=== PATIENT | male | born 1940 | race Caucasian/White ===

== ENCOUNTER → 2017-12-24 07:52 | Outpatient (CLI) | payer MEDICARE, SELFPAY ==
--- NOTE | 2017-12-24 | DI.US.S_ITS ---
PROCEDURE: US ABD AORTA ANEURYSM SCREEN INDICATIONS: SCREENING TECHNIQUE: Real time scanning was performed of the aorta and iliac arteries, with image documentation. COMPARISON: None. FINDINGS: Aorta: Proximal aortic diameter measures 1.9 cm. Mid-aorta measures 1.4 cm. Distal aortic diameter is 1.4 cm. Iliac arteries: Right common iliac artery measures 0.8 cm. Left common iliac artery measures 0.8 cm. IMPRESSION: Negative examination. No evidence of aneurysm identified. Dictated by: Pako Elizabeth M.D. on 12/24/2017 at 9:29 Approved by: Pako Elizabeth M.D. on 12/24/2017 at 9:30
== END ==
PROVIDERS: PCP Internal Medicine; Visit Provider Internal Medicine
DX: Z13.6 Encounter for screening for cardiovascular disorders (principal)
CPT/HCPCS: 76706

== ENCOUNTER → 2018-01-05 08:10 | Outpatient (CLI) | payer MEDICARE, SELFPAY ==
--- NOTE | 2018-01-05 | DI.NM.S_ITS ---
PROCEDURE: NM ROVERTO PERF SPECT R&S PHARM Rest and pharmacological stress myocardial perfusion SPECT with gated imaging and ejection fraction RADIOPHARMACEUTICAL: 14.7 mCi Tc-99m tetrafosmin IV at rest and 16.9 mCi Tc-99m tetrafosmin IV at peak effect of pharmacological stress. Vay-[id number]-[id number] was performed. INDICATIONS: CHEST PAIN TECHNIQUE: Radiopharmaceutical was injected at peak stress test, and also at rest. SPECT images were obtained. SPECT myocardial perfusion images were displayed in short axis, horizontal long axis, and vertical long axis views. Gated images were reviewed using [employer] software. COMPARISON: None. CARDIAC STRESS: A pharmacologic stress test was performed under the supervision of an attending staff, using an infusion of lexiscan 0.4mg IV X1. Hemodynamic data: There is normal blood pressure and heart rate response to pharmacologic stress. Symptoms: The patient denied anginal chest pain. Aminophylline: none EKG: Resting ECG shows sinus rhythm with LBBB. No diagnostic changes of ischemia; occasional PVCs present. FINDINGS: Raw data: There is good myocardial uptake of radiotracer. No significant motion artifacts. Mdpg-yb-rdhbz ratio is 0.35 (normal is less than 0.38 for tetrafosmin tracer). Left ventricle function: Gated images demonstrate hypokinesis of the apical septum and apical inferior wall. No transient ischemic dilation; TID is 0.92 (normal less than 1.3). Left ventricle resting end diastolic volume is 155 mL. Left ventricle stress ejection fraction is 62%; normal range is above 45%. Myocardial perfusion: There is a fixed apical inferior and apical septal defect that improves significantly with prone imaging, suggesting prior small infarct with no significant ischemia. The fixed basal to mid inferior wall and basal to mid septal defect resolves with prone imaging, suggesting artifact than true ischemia or infarction. 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 No significant ischemia. 1) Abnormal nuclear perfusion images. There is a prior small infarction in the apical inferior wall and apical septum. Alternatively, this perfusion defect can also be from LBBB. 2) Mildly enlarged left ventricle (resting EDV 155cc) with normal systolic function (post stress EF 62%). There is hypokinesis of the apical septum and apical inferior wall. 3) ECG non-diagnostic due to baseline LBBB. 4) No angina during the study. 5) No prior nuclear stress test available for comparison. Dictated by: Camelia Saravia MD on 01/06/2018 at 12:49 Approved by: Camelia Saravia MD on 01/06/2018 at 12:55
--- NOTE | 2018-01-05 09:29 | PM.TREADMILL ---
Cardiac Stress Test Report Referral & Results Date Patient Seen: 01/05/18 Requesting provider: iJ Sauer Indication: Chest pain Rest ECG: Left bundle branch block, presume old Procedure Note: After both written and verbal informed consent the patient had an IV started by the diagnostic imaging RN and then was hooked up to the treadmill monitoring system. The patient was then injected with the Renuka scan material. The Cardiolite was then immediately administered. The patient had a normal response to all infused materials. No adverse reactions were identified Impression: Normal response to materials as above Perfusion imaging will be reported separately, and possible ischemia will be evident on that study. Please note: Actual ECG tracings can be found in the PACS system.
== END ==
PROVIDERS: PCP Internal Medicine; Visit Provider Internal Medicine
DX: R07.9 Chest pain, unspecified (principal); I44.7 Left bundle-branch block, unspecified; I25.2 Old myocardial infarction; R94.39 Abnormal result of other cardiovascular function study
CPT/HCPCS: 78452; 93016; 93017; 93018; A9502; J2785

== ENCOUNTER → 2019-01-12 11:55 | Outpatient (CLI) | payer MEDICARE, SELFPAY ==
[2019-01-12 12:44] LABS: BUN Creatinine Ratio 18.6 (6-22); Blood Urea Nitrogen 26 mg/dL (9-20); Carbon Dioxide 27 mmol/L (22-32); Chloride 99 mmol/L (98-107); Estimated Glomerular Filt Rate 49.3 mL/min (>60); Glucose 121 mg/dL (80-110); HEMOLYSIS < 15 (0-50); Potassium 4.6 mmol/L (3.4-5.1); Sodium 138 mmol/L (137-145)
== END ==
PROVIDERS: PCP Internal Medicine; Visit Provider Internal Medicine
DX: I10 Essential (primary) hypertension (principal)
CPT/HCPCS: 36415; 80048

== ENCOUNTER 2019-04-14 13:00 | Day surgery (SDC) | payer MEDICARE, SELFPAY ==
[2019-04-14] MEDS: SODIUM CHLORIDE 0.9% 1,000 ML 200 ML IV (13:31)
[2019-04-14 13:48] VITALS: BMI 39.9
[2019-04-14 13:53] VITALS: BP 157/74; PULSE 64; RESP 12; TEMP 36.8; O2SAT 98
[2019-04-14] MEDS: MIDAZOLAM 5 MG/ML VIAL 1 MG IV (14:31)
[2019-04-14] MEDS: fentaNYL 250 MCG/5 ML INJ IV (14:31)
--- NOTE | 2019-04-14 14:34 | P.HP_ITS ---
History of Present Illness History of Present Illness Date Patient Seen: 04/14/19 Time Patient Seen: 14:34 Chief complaint: [id number] SCREENING COLONOSCOPY Narrative: Patient presents for colorectal screening. Last colonoscopy was 5 years ago in significant referred adenomatous polyp. No personal or family history of colon cancer. On further history denies any recent gastrointestinal symptoms. No nausea, vomiting, abdominal pain, loss of appetite, unexplained weight loss, change in bowel habits, diarrhea, constipation, melena, hematochezia, or bright red blood per rectum. Patient History Medical History Adenomatous polyp (Acute) Obesity (Acute) Family & Social History Social History: household members spouse Tobacco & Substance use: Smoking Status Never smoker alcohol intake frequency holiday/special occasion Substance Use Type does not use Meds Home Medications and Allergies Home Medications Medication Instructions Recorded Confirmed Type Aspirin Childrens 81 mg PO DAILY 04/14/19 04/14/19 History atenolol-chlorthalidone 75 mg PO 1-2XD 04/14/19 04/14/19 History losartan [Cozaar] 50 mg PO 1-2XD 04/14/19 04/14/19 History spironolactone [Aldactone] 25 mg PO DAILY 04/14/19 04/14/19 History Allergies Allergy/AdvReac Type Severity Reaction Status Date / Time atorvastatin [From Lipitor] AdvReac Mild Verified 04/14/19 13:35 Review of Systems Review of Systems Narrative: A 10 point review of systems is negative except as noted in the HPI Exam Vital Signs (past 8 hours): - 04/14/19 13:53 Temperature 98.3 F Pulse Rate 64 Respiratory Rate 12 Blood Pressure 157/74 H Pulse Oximetry 98 Oxygen Delivery Method Room Air Narrative Exam Narrative: General-no acute distress, well nourished HEENT-moist mucous membranes, no scleral icterus Neck-supple, no lymphadenopathy Chest- non labored respirations, clear to auscultation bilaterally Cardiac-regular rate no peripheral edema Abdomen-soft, nontender, non distended Extremities-warm, well perfused Neurological-alert and oriented, no focal deficits Assessment & Plan Assessment and plan (1) Screening for colon cancer: Current visit: Yes Status: Acute Assessment & Plan narrative: The patient requires colorectal screening and colonoscopy is recommended. Technical details were discussed. Risks, benefits, alternatives explained. Risks including but not limited to myocardial i nfarction, aspiration, bleeding, pain, missed lesion, incomplete examination, need for further radiographic studies, colonic perforation, and need for major abdominal surgery were discussed. All questions were answered to their satisfaction, and they are in agreement with this plan.
--- NOTE | 2019-04-14 14:57 | PM.OP.ENDO ---
Operative Date/Time/Diagnoses Date of procedure: 04/14/19 Time of procedure: 14:57 Pre-op diagnosis: Screening colonoscopy Post-op diagnosis: same Procedure & Clinicians Study performed: Colonoscopy Same procedure as scheduled: Yes Indications: 79-year-old male last colonoscopy 5 years ago demonstrated adenomas polyp which was resected presents for routine screening. Surgeon: Nura Farr Procedure Notes SCOAP/Timeout: Performed Procedure in detail: Patient placed in left lateral decubitus position. Time out was performed. Procedural sedation was administered with Versed and Fentanyl. A rectal exam demonstrated external hemorrhoids no internal masses. Colonoscopy scope was placed into the rectum and advanced through the colon to the cecum. The ileocecal valve was identified. The scope was then slowly withdrawn examining colon thoroughly in all directions. The colonoscopy was notable for the following 1. Sigmoid diverticulosis 2. No masses or polyps 3. Quality of prep fair Scope withdrawal time: 9 Sedation minutes: 21 Findings: diverticulosis Specimen(s): none sent Complications: none Impression: Diverticulosis Post-procedure Recommendations: Colonscopy in 10 years Disposition: same day surgery
[2019-04-14 15:00] VITALS: BP 108/50; PULSE 50; RESP 16; O2SAT 95
[2019-04-14 15:05] VITALS: BP 123/59; PULSE 45; RESP 13; O2SAT 93
[2019-04-14 15:25] VITALS: BP 126/59; PULSE 45; RESP 17; O2SAT 96
[2019-04-14 15:30] VITALS: TEMP 36
--- NOTE | 2019-04-14 16:16 | SUR.PHASEII ---
1540 Dr. Farr notified patient's HR 45 with BBB. Patient denied chest pain. No new orders.
== END 2019-04-14 15:45 | disposition home or self-care (01) ==
PROVIDERS: PCP Internal Medicine; Referring Provider Surgery; Visit Provider Surgery
PROC: 0DJD8ZZ Inspection of Lower Intestinal Tract, Via Natural or Artificial Opening Endoscopic (ICD-10-PCS; CPT 45378; principal; 2019-04-14 14:30)
DX: Z12.11 Encounter for screening for malignant neoplasm of colon (principal); Z86.010 Personal history of colon polyps; K57.30 Diverticulosis of large intestine without perforation or abscess without bleeding
CPT/HCPCS: G0105; 99152; J2250; J3010

== ENCOUNTER → 2019-07-14 09:29 | Outpatient (CLI) | payer MEDICARE, SELFPAY ==
[2019-07-14 10:02] LABS: Add Manual Diff / Slide Review NO; Basophils Absolute Auto 100 /uL (0-100); Basophils Percent Auto 1.2 % (0-2); Eosinophils Absolute Auto 600 /uL (0-450); Hematocrit 34.8 % (41-53); Hemoglobin 11.8 g/dL (13.5-17.5); Lymphocytes Absolute Auto 3100 /uL (1100-4500); Lymphocytes Percent Auto 25.3 % (25-40); Mean Corpuscular Hemoglobin 29.1 PG (26-34); Mean Corpuscular Volume 85.7 fL (80-100); Monocytes Absolute Auto 1400 /uL (0-900); Monocytes Percent Auto 11.1 % (3-14); Neutrophils Absolute Auto 7000 /uL (1500-7000); Neutrophils Percent Auto 57.4 % (50-75); Platelet Count 336 X10^3/uL (150-400); Red Blood Cell Count 4.07 X10^6/uL (4.5-5.9); Red Cell Distribution Width 13.9 % (11.6-14.8); White Blood Cell Count 12.2 X10^3/uL (4.5-11.0)
[2019-07-14 10:39] LABS: Alanine Aminotransferase 26 IU/L (<50); Albumin 4.5 g/dL (3.5-5.0); Albumin Globulin Ratio 1.3 (1.0-2.8); Alkaline Phosphatase 81 U/L (38-126); Aspartate Aminotransferase 34 IU/L (17-59); BUN Creatinine Ratio 17.7 (6-22); Bilirubin Total 0.6 mg/dL (0.2-1.3); Blood Urea Nitrogen 22 mg/dL (9-20); Calcium 9.9 mg/dL (8.4-10.2); Carbon Dioxide 27 mmol/L (22-32); Chloride 102 mmol/L (98-107); Estimated Glomerular Filt Rate 56.5 mL/min (>60); Globulin 3.4 g/dL (1.7-4.1); Glucose 127 mg/dL (80-110); HEMOLYSIS < 15 (0-50); Potassium 4.3 mmol/L (3.4-5.1); Sodium 139 mmol/L (137-145); Total Protein 7.9 g/dL (6.3-8.2)
[2019-07-14 10:50] LABS: HCG Quantitative /Beta subunit < 2.4 mIU/mL (-2.40)
[2019-07-14 10:51] LABS: Follicle Stimulating Hormone 6.65 mIU/mL; Luteinizing Hormone 4.22 mIU/mL
[2019-07-14 11:06] LABS: Estradiol, Total 35.7 pg/mL; Testosterone 279 ng/dL (71.8-623)
== END ==
PROVIDERS: PCP Internal Medicine; Referring Provider Internal Medicine; Visit Provider Internal Medicine
DX: I10 Essential (primary) hypertension (principal)
CPT/HCPCS: 36415; 80053; 82670; 83001; 83002; 84403; 84443; 84702; 85025

== ENCOUNTER 2020-03-02 10:00 | Inpatient (IN) | payer MEDICARE, SELFPAY ==
[2020-03-02] VITALS (21 sets, daily range): BP systolic 109–152; BP diastolic 60–80; PULSE 107–127; RESP 12–32; TEMP 36.4–37.2; O2SAT 86–95; BMI 41.5; BMI 42.1
--- NOTE | 2020-03-02 10:21 | DI.RAD.S_ITS ---
PROCEDURE: XR CHEST 1V INDICATIONS: chest pain TECHNIQUE: One view of the chest was acquired. COMPARISON: None. FINDINGS: Surgical changes and devices: None. Lungs and pleura: Mild generalized interstitial type infiltrates can be seen involving both lungs, right worse than left. No pleural effusions or pneumothorax. Mediastinum: Mediastinal contours appear normal. Heart size is normal. Bones and chest wall: No suspicious bony lesions. Age-appropriate bony degenerative changes are seen. Overlying soft tissues appear unremarkable. IMPRESSION: Mild generalized interstitial type infiltrates are seen. Please consider COVID pneumonia versus pulmonary edema. Dictated by: Marcio Sewell M.D. on 03/02/2020 at 9:38 Approved by: Marcio Sewell M.D. on 03/02/2020 at 9:42
--- NOTE | 2020-03-02 10:33 | ED_ITS ---
HPI - Chest Pain <KATIANA Bates - Last Filed: 03/02/20 13:30> General Chief Complaint: Chest Pain Stated Complaint: congestion,cough,shortness of breath,heart rate up Time Seen by Provider: 03/02/20 10:06 Source: patient Mode of arrival: Ambulatory Limitations: no limitations History of Present Illness HPI narrative: This is a high functioning 80-year-old gentleman, formal smoker, who has past medical history significant for hypertension, JOHN, melanoma, presents to ED with exertional short of breath, nonproductive dry cough, orthopnea, chest pressure. Patient's initial symptoms started on February 15 when he was riding a bicycle in [place] and short of breath worsened with dry cough on 26 of February during bike ride. Patient contributed his symptoms to chest congestion and cold. Patient developed fever this morning up to [address] Sauer recommended patient to come into ED for an evaluation. Patient denies known exposure to Covid or recent travel. Patient denies history of atrial fibrillation, TX. patient denies chills, nausea, vomiting but intermitt ent left upper quadrant discomfort. Patient denies urinary symptoms. Patient noticed his blood pressure has been slightly decreasing from his baseline to 118/60-40 at rest. He has been monitoring his heart rate with portable pulse ox at home and noticed heart rate up to 120s to 60s. Pharmacological stress myocardial perfusion on 01/05/2018. There is a small infarction in this apical inferior wall and apical septum. There is mild enlarged left ventricle with ejection fraction of 62%. ECG has baseline left bundle branch block. Related Data Home Medications Medication Instructions Recorded Confirmed losartan [Cozaar] 50 mg PO BID 04/14/19 03/02/20 spironolactone [Aldactone] 25 mg PO DAILY 04/14/19 03/02/20 amlodipine 10 mg PO BEDTIME 03/02/20 03/02/20 aspirin 81 mg PO BEDTIME 03/02/20 03/02/20 atenolol-chlorthalidone 1 tab PO DAILY 03/02/20 03/02/20 cholecalciferol (vitamin D3) 50 mcg PO DAILY 03/02/20 03/02/20 [Vitamin D3] metronidazole 1 applic TOPICAL DAILY PRN 03/02/20 03/02/20 spikyphwscwe-tauyxzpx-[id number] 2 tab PO DAILY 03/02/20 03/02/20 [Mature Adult Century] Allergies Allergy/AdvReac Type Severity Reaction Status Date / Time atorvastatin [From Lipitor] AdvReac Mild Verified 03/02/20 10:24 amitriptyline AdvReac Verified 03/02/20 14:20 Review of Systems <MARIBELL BatesP - Last Filed: 03/02/20 13:30> Review of Systems Narrative: General: See HPI. HEENT: Denies sinus pain, ear pain, sore throat, difficulty swallowing, dizziness. Respiratory: See HPI. Cardiovascular: See HPI. Gastrointestinal: Denies nausea, vomiting, (+) intermittent left upper quadrant discomfort, diarrhea, constipation, melena. : Denies dysuria, frequency, incontinence, hematuria, urinary retention. Musculoskeletal: Denies weakness, joint pain or bony pain. Skin: Denies rash, skin lesions, or other. Neurologic: Denies weakness, headache, numbness, change in speech, confusion, seizures, incoordination. Psychiatric: No concerning psychosocial issues. 12-point review of systems is negative except for those stated above. Patient History <Kirby Tomas [facility] - Last Filed: 03/02/20 13:30> Medical History Adenomatous polyp Hypertension Melanoma Obesity JOHN (obstructive sleep apnea) Surgical History History of cataract surgery Family History (Updated 03/02/20 @ 15:58 by Jessa Frausto MD) Mother Congestive heart failure Social History household members: spouse Smoking Status: Former smoker Smoking Status: Never smoker alcohol intake frequency: holidays/special occasions only Substance Use Type: does not use Exam <Kirby Genoveva [facility] - Last Filed: 03/02/20 13:30> Narrative Exam Narrative: GEN: Alert, oriented x 3, well appearing and nourished, and in moderate respiratory distress with tachypnea with short distance of ambulation to room and tachycardia. Head: Normal cephalic, atraumatic. No scalp or temporal tenderness, palpable mass or rash. EYES: Pupils are equal, round, and reactive to light and accommodation. Extraocular muscles are intact bilaterally. There is no subconjunctival hemorrhage, exudate and sclera non-icteric. ENT: Hearing grossly intact. Nose without bleeding, purulent discharge or deviation. Facial sinuses nontender to palpate. Mucous membrane moist, no mucosal lesion. Throat without erythema, tonsillar hypertrophy or exudate. Uvula in midline, airway patent. Neck: Trachea in midline. No JVD, non-tender without lymphadenopathy. No masses or thyroid megaly. Supple, non-tender and no meningeal signs. CARDIAC: Normal irregular and rhythm without murmurs, gallops, or rubs. No chest wall tenderness. No significant peripheral edema, cyanosis or pallor. Capillary refill is less than 2 seconds. RESPIRATORY: Lungs are decreased to auscultate bilaterally. No cough, wheezes, rales, or rhonchi. No stridor. Tachypnea with mild exertion. ABD: Abdomen soft, nontender. No guarding or rebound tenderness to palpate. Bowel sounds are normal in all 4 quadrants. There is no palpable masses or organomegaly. EXT: Full painless ROM of all extremities with no loss of sensation, strength, effusion or edema. SKIN: Warm, dry, normal color for patient. No erythema, lesions or rash over visible areas. BACK: Nontender without deformity or crepitance. No flank tenderness. NEUROLOGICAL: Alert and oriented to place, time and person. Sensation and motor function intact bilaterally. No facial droops, dysphasia. PSYCHIATRIC: Good judgement and reason, without hallucinations, abnormal affect or abnormal behaviors during the examination. Patient is not suicidal. Initial Vital Signs Initial Vital Signs: Vital Signs Temperature 98.9 F 03/02/20 10:00 Pulse Rate 124 H 03/02/20 10:00 Respiratory Rate 32 H 03/02/20 10:00 Blood Pressure 118/79 03/02/20 10:00 Pulse Oximetry 93 03/02/20 10:00 <Feliciano Ware DO - Last Filed: 03/03/20 06:47> Initial Vital Signs Initial Vital Signs: Vital Signs Temperature 98.9 F 03/02/20 10:00 Pulse Rate 124 H 03/02/20 10:00 Respiratory Rate 32 H 03/02/20 10:00 Blood Pressure 118/79 03/02/20 10:00 Pulse Oximetry 93 03/02/20 10:00 Scores <KATIANA Bates - Last Filed: 03/02/20 13:30> RAJINDER-Denisse Confusion: No BUN >19mg/dL (>7mmol/L): Yes Respiratory rate greater or equal to 30: No SBP <90mmHg or DBP less or equal to 60mmHg: No Age 65 or Older: Yes CURB-65 Total: 2 Score 0-1 Outpatient care, Score 2 Inpt vs. Obs, Score 3 or over Inpt admit with ICU for score of 4-5 GCS [place] coma scale eye opening: Spontaneous Oskar coma scale verbal response: Orientated [place] coma scale motor response: Obey commands [place] coma scale total score: 15 HEART Score Heart Score history: Highly Suspicious Heart Score EKG: Non-Specific repolarization disturbance Heart Score Age: > or = 65 years old Heart Score risk factors: 1-2 risk factors Heart Score troponin: < or = to normal limit Heart Score Total: 6 qSOFA Altered Mental Status (GCS <15): No Respiratory rate greater than/equal to 22: Yes Systolic blood pressure less than or equal to 100: No qSOFA Total: 1 0-1 Not High Risk 1-3 High risk Citation:: [id number] score for afib/stroke risk 5 for age, sex, CHF, HTN, prior TX. Course <Kirby Hull-VikramKATIANA reddy - Last Filed: 03/02/20 13:30> Orders Ordered: Acetaminophen (Acetaminophen 325 Mg Tablet) 650 mg PO Q6HR PRN PRN Reason: Fever/Mild Pain (1-3) Al Hydrox/Mg Hydrox/Simethicone (Mag Hydrox/Alum/Simeth 30 Ml Udc) 30 ml PO Q6HR PRN PRN Reason: Dyspepsia Aspirin (Aspirin Ec 81 Mg Tablet) 81 mg PO DAILY [facility] Bisacodyl (Bisacodyl 10 Mg Supp) 10 mg IA DAILY PRN PRN Reason: Constipation Calcium Carbonate (Calcium Carbonate 500 Mg Tab) 1,000 mg PO Q4HR PRN PRN Reason: Dyspepsia Docusate Sodium (Docusate 100 Mg Capsule) 100 mg PO BID [facility] [place] Last Admin: 03/02/20 20:33 Dose: 100 mg Documented by: Enoxaparin Sodium (Enoxaparin 40 Mg/0.4 Ml Syringe) 40 mg SUBCUT DAILY [facility] [place] Sodium Chloride (Normal Saline 0.9%) 1,000 mls @ 125 mls/hr IV CONT [facility] Last Infusion: 03/02/20 12:37 Dose: 0 mls/hr Documented by: Admin: 03/02/20 11:09 Dose: 125 mls/hr Documented by: ALEX Ceftriaxone Sodium/Dextrose (Rocephin) 2 gm in 50 mls @ 100 mls/hr IV Q24H [facility] Azithromycin 500 mg/ Dextrose 250 mls @ 250 mls/hr IV Q24H [facility] [place] Stop: 03/06/20 12:59 Losartan Potassium (Losartan 50 Mg Tablet) 50 mg PO BID [facility] [place] Last Admin: 03/02/20 20:33 Dose: 50 mg Documented by: Magnesium Hydroxide (Magnesium Hydroxide 30 Ml Udc) 30 ml PO DAILY PRN PRN Reason: Constipation Metoprolol Tartrate (Metoprolol Ir 50 Mg Tablet) 50 mg PO Q6HR [facility] [place] Last Admin: 03/02/20 17:09 Dose: 50 mg Documented by: NAZANIN Multivitamins (Multivitamin 1 Tablet) 1 tab PO DAILY [facility] [place] Naloxone HCl (Naloxone 0.4 Mg/Ml Vial) 0.2 mg IV Q2MIN PRN PRN Reason: Opiate Reversal Ondansetron HCl (Ondansetron 4 Mg/2 Ml Inj) 4 mg IV Q8HR PRN PRN Reason: Nausea And Vomiting Oxycodone HCl (Oxycodone Ir 5 Mg Tablet) 5 mg PO Q6HR PRN PRN Reason: Pain, Moderate (4-6) Sennosides (Sennosides 8.6 Mg Tablet) 17.2 mg PO BEDTIME [facility] [place] Last Admin: 03/02/20 20:33 Dose: 17.2 mg Documented by: Spironolactone (Spironolactone 25 Mg Tablet) 25 mg PO DAILY [facility] [place] Discontinued Medications Amlodipine Besylate (Amlodipine 5 Mg Tablet) 10 mg PO DAILY [facility] [place] Ceftriaxone Sodium/Dextrose (Rocephin) 2 gm in 50 mls @ 100 mls/hr IV NOW ONE Stop: 03/02/20 12:17 Last Infusion: 03/02/20 12:37 Dose: 0 mls/hr Documented by: Admin: 03/02/20 12:04 Dose: 100 mls/hr Documented by: ALEX Azithromycin 500 mg/ Dextrose 250 mls @ 250 mls/hr IV NOW ONE Stop: 03/02/20 11:49 Last Infusion: 03/02/20 14:26 Dose: 0 mls/hr Documented by: Infusion: 03/02/20 13:40 Dose: 250 mls/hr Documented by: Infusion: 03/02/20 13:16 Dose: 0 mls/hr Documented by: Admin: 03/02/20 12:37 Dose: 250 mls/hr Documented by: ALEX Metoprolol Succinate (Metoprolol Er 25 Mg Tablet) 25 mg PO NOW ONE Stop: 03/02/20 12:16 Last Admin: 03/02/20 12:34 Dose: 25 mg Documented by: ALEX Reevaluation(s) Reevaluation #1: started on gentle IV hydration for concerns for sepsis and afib/tachycardia due to concerns for tachycardia from heart failure etiology. no crackles with marginal o2 sat at 93% in RA, no pitting edema but appreciated mild swelling around the ankle around the socks Time: 10:39 Reevaluation #2: Oxygen by nasal cannula 2 L provided to keep O2 said greater than 93%. At rest noted O2 said in 91% in bed. Patient reports short of breath not to bad at rest. Time: 11:10 Reevaluation #3: Oxygenation on 2 L nasal cannula increased to 95% and reports short of breath much improved. Time: 11:45 Consultations Consultation #1: Dr. Frausto consulted for admission for pneumonia, new onset of AFib, and elevated proBNP. She kindly accepted patient's care for IV antibiotic medication therapy and further cardiac workup. She recommended no IV fluid infusion at this time and recommended p.o. metoprolol 25 mg for afib with rate in 110's. Time: 12:19 Vital Signs Vital signs: Vital Signs - 8 hr 03/02/20 12:00 03/02/20 12:15 Pulse Rate 115 H 117 H Respiratory Rate 15 Blood Pressure 122/68 117/63 Pulse Oximetry 95 95 <Feliciano Ware DO - Last Filed: 03/03/20 06:47> Orders Ordered: Acetaminophen (Acetaminophen 325 Mg Tablet) 650 mg PO Q6HR PRN PRN Reason: Fever/Mild Pain (1-3) Al Hydrox/Mg Hydrox/Simethicone (Mag Hydrox/Alum/Simeth 30 Ml Udc) 30 ml PO Q6HR PRN PRN Reason: Dyspepsia Aspirin (Aspirin Ec 81 Mg Tablet) 81 mg PO DAILY [facility] Bisacodyl (Bisacodyl 10 Mg Supp) 10 mg IA DAILY PRN PRN Reason: Constipation Calcium Carbonate (Calcium Carbonate 500 Mg Tab) 1,000 mg PO Q4HR PRN PRN Reason: Dyspepsia Docusate Sodium (Docusate 100 Mg Capsule) 100 mg PO BID [facility] [place] Last Admin: 03/02/20 20:33 Dose: 100 mg Documented by: Enoxaparin Sodium (Enoxaparin 40 Mg/0.4 Ml Syringe) 40 mg SUBCUT DAILY [facility] [place] Sodium Chloride (Normal Saline 0.9%) 1,000 mls @ 125 mls/hr IV CONT [facility] Last Infusion: 03/02/20 12:37 Dose: 0 mls/hr Documented by: Admin: 03/02/20 11:09 Dose: 125 mls/hr Documented by: ALEX Ceftriaxone Sodium/Dextrose (Rocephin) 2 gm in 50 mls @ 100 mls/hr IV Q24H [facility] Azithromycin 500 mg/ Dextrose 250 mls @ 250 mls/hr IV Q24H [facility] Stop: 03/06/20 12:59 Losartan Potassium (Losartan 50 Mg Tablet) 50 mg PO BID [facility] [place] Last Admin: 03/02/20 20:33 Dose: 50 mg Documented by: Magnesium Hydroxide (Magnesium Hydroxide 30 Ml Udc) 30 ml PO DAILY PRN PRN Reason: Constipation Metoprolol Tartrate (Metoprolol Ir 50 Mg Tablet) 50 mg PO Q6HR [facility] [place] Last Admin: 03/02/20 17:09 Dose: 50 mg Documented by: NAZANIN Multivitamins (Multivitamin 1 Tablet) 1 tab PO DAILY [facility] [place] Naloxone HCl (Naloxone 0.4 Mg/Ml Vial) 0.2 mg IV Q2MIN PRN PRN Reason: Opiate Reversal Ondansetron HCl (Ondansetron 4 Mg/2 Ml Inj) 4 mg IV Q8HR PRN PRN Reason: Nausea And Vomiting Oxycodone HCl (Oxycodone Ir 5 Mg Tablet) 5 mg PO Q6HR PRN PRN Reason: Pain, Moderate (4-6) Sennosides (Sennosides 8.6 Mg Tablet) 17.2 mg PO BEDTIME [facility] [place] Last Admin: 03/02/20 20:33 Dose: 17.2 mg Documented by: Spironolactone (Spironolactone 25 Mg Tablet) 25 mg PO DAILY [facility] Discontinued Medications Amlodipine Besylate (Amlodipine 5 Mg Tablet) 10 mg PO DAILY [facility] Ceftriaxone Sodium/Dextrose (Rocephin) 2 gm in 50 mls @ 100 mls/hr IV NOW ONE Stop: 03/02/20 12:17 Last Infusion: 03/02/20 12:37 Dose: 0 mls/hr Documented by: Admin: 03/02/20 12:04 Dose: 100 mls/hr Documented by: ALEX Azithromycin 500 mg/ Dextrose 250 mls @ 250 mls/hr IV NOW ONE Stop: 03/02/20 11:49 Last Infusion: 03/02/20 14:26 Dose: 0 mls/hr Documented by: Infusion: 03/02/20 13:40 Dose: 250 mls/hr Documented by: Infusion: 03/02/20 13:16 Dose: 0 mls/hr Documented by: Admin: 03/02/20 12:37 Dose: 250 mls/hr Documented by: ALEX Metoprolol Succinate (Metoprolol Er 25 Mg Tablet) 25 mg PO NOW ONE Stop: 03/02/20 12:16 Last Admin: 03/02/20 12:34 Dose: 25 mg Documented by: ALEX Vital Signs Vital signs: Vital Signs - 8 hr 03/02/20 12:00 03/02/20 12:15 Pulse Rate 115 H 117 H Respiratory Rate 15 Blood Pressure 122/68 117/63 Pulse Oximetry 95 95 MDM - Chest Pain <KATIANA Bates - Last Filed: 03/02/20 13:30> Differential Diagnosis Differential diagnosis: Likely stable angina, unstable angina pectoris and other (ACS, TX, pneumonia, COVID-19, new onset of AFib, heart failure) Medical Records Data Attestation: I reviewed the patient's medical records. Lab Data Attestation: I reviewed the patient's lab results. Result diagrams: 03/03/20 05:00 03/03/20 05:00 Labs: Lab Results 03/02/20 03/02/20 03/02/20 Range/Units 10:20 10:20 10:20 WBC 18.9 H (4.5-11.0) X10^3/uL RBC 4.02 L (4.5-5.9) X10^6/uL Hgb 11.2 L (13.5-17.5) g/dL Hct 34.4 L (41-53) % MCV 85.6 (80-100) fL MCH 27.7 (26-34) PG MCHC 32.4 (30-36) % RDW 14.2 (11.6-14.8) % Plt Count 312 (150-400) X10^3/uL Neut % (Auto) 78.5 H (50-75) % Lymph % (Auto) 9.4 L (25-40) % [place] % (Auto) 10.0 (3-14) % Eos % (Auto) 1.4 L (2-4) % Baso % (Auto) 0.7 (0-2) % Neut # (Auto) 76905 H (9860-2472) /uL Lymph # (Auto) 1800 (9988-9871) /uL [place] # (Auto) 1900 H (0-900) /uL Eos # (Auto) 300 (0-450) /uL Baso # (Auto) 100 (0-100) /uL PT 13.4 H (10.1-12.7) SECONDS INR 1.2 (0.9-1.3) APTT 31 (26.4-36.2) SECONDS D-Dimer (<230) ng/mL Sodium 134 L (137-145) mmol/L Potassium 4.6 (3.4-5.1) mmol/L Chloride 103 (98-107) mmol/L Carbon Dioxide 23 (22-32) mmol/L BUN 29 H (9-20) mg/dL Creatinine 1.48 H (0.66-1.25) mg/dL Estimated GFR 46.0 L (>60) mL/min BUN/Creatinine Ratio 19.6 (6-22) Glucose 166 H (80-110) mg/dL Lactate (0.7-2.1) mmol/L Calcium 9.0 (8.4-10.2) mg/dL Ferritin (18-464) ng/mL Total Bilirubin 0.8 (0.2-1.3) mg/dL AST 29 (17-59) IU/L ALT 32 (<50) IU/L Alkaline Phosphatase 83 (38-126) U/L Lactate Dehydrogenase (313-618) U/L Total Creatine Kinase 63 (55-170) U/L CK-MB (CK-2) TNP CK-MB (CK-2) Rel Index TNP Troponin I < 0.012 (0.01-0.034) ng/mL C-Reactive Protein (<1.0) mg/dL NT-Pro-B Natriuret Pep 2290 H (<450) pg/mL Total Protein 7.8 (6.3-8.2) g/dL Albumin 4.2 (3.5-5.0) g/dL Globulin 3.6 (1.7-4.1) g/dL Albumin/Globulin Ratio 1.2 (1.0-2.8) Lipase 78 (23-300) U/L Procalcitonin (<0.5) ng/mL SARS-CoV-2 (PCR) (Negative) 03/02/20 03/02/20 03/02/20 Range/Units 10:21 10:21 10:28 WBC (4.5-11.0) X10^3/uL RBC (4.5-5.9) X10^6/uL Hgb (13.5-17.5) g/dL Hct (41-53) % MCV (80-100) fL MCH (26-34) PG MCHC (30-36) % RDW (11.6-14.8) % Plt Count (150-400) X10^3/uL Neut % (Auto) (50-75) % Lymph % (Auto) (25-40) % [place] % (Auto) (3-14) % Eos % (Auto) (2-4) % Baso % (Auto) (0-2) % Neut # (Auto) (4796-1073) /uL Lymph # (Auto) (4519-2609) /uL [place] # (Auto) (0-900) /uL Eos # (Auto) (0-450) /uL Baso # (Auto) (0-100) /uL PT (10.1-12.7) SECONDS INR (0.9-1.3) APTT (26.4-36.2) SECONDS D-Dimer (<230) ng/mL Sodium (137-145) mmol/L Potassium (3.4-5.1) mmol/L Chloride (98-107) mmol/L Carbon Dioxide (22-32) mmol/L BUN (9-20) mg/dL Creatinine (0.66-1.25) mg/dL Estimated GFR (>60) mL/min BUN/Creatinine Ratio (6-22) Glucose (80-110) mg/dL Lactate 1.8 (0.7-2.1) mmol/L Calcium (8.4-10.2) mg/dL Ferritin (18-464) ng/mL Total Bilirubin (0.2-1.3) mg/dL AST (17-59) IU/L ALT (<50) IU/L Alkaline Phosphatase (38-126) U/L Lactate Dehydrogenase (313-618) U/L Total Creatine Kinase (55-170) U/L CK-MB (CK-2) CK-MB (CK-2) Rel Index Troponin I (0.01-0.034) ng/mL C-Reactive Protein (<1.0) mg/dL NT-Pro-B Natriuret Pep (<450) pg/mL Total Protein (6.3-8.2) g/dL Albumin (3.5-5.0) g/dL Globulin (1.7-4.1) g/dL Albumin/Globulin Ratio (1.0-2.8) Lipase (23-300) U/L Procalcitonin < 0.05 (<0.5) ng/mL SARS-CoV-2 (PCR) Negative (Negative) 03/02/20 03/02/20 03/02/20 Range/Units 10:41 10:41 10:41 WBC (4.5-11.0) X10^3/uL RBC (4.5-5.9) X10^6/uL Hgb (13.5-17.5) g/dL Hct (41-53) % MCV (80-100) fL MCH (26-34) PG MCHC (30-36) % RDW (11.6-14.8) % Plt Count (150-400) X10^3/uL Neut % (Auto) (50-75) % Lymph % (Auto) (25-40) % [place] % (Auto) (3-14) % Eos % (Auto) (2-4) % Baso % (Auto) (0-2) % Neut # (Auto) (0183-7352) /uL Lymph # (Auto) (9271-8548) /uL [place] # (Auto) (0-900) /uL Eos # (Auto) (0-450) /uL Baso # (Auto) (0-100) /uL PT (10.1-12.7) SECONDS INR (0.9-1.3) APTT (26.4-36.2) SECONDS D-Dimer 285 H (<230) ng/mL Sodium (137-145) mmol/L Potassium (3.4-5.1) mmol/L Chloride (98-107) mmol/L Carbon Dioxide (22-32) mmol/L BUN (9-20) mg/dL Creatinine (0.66-1.25) mg/dL Estimated GFR (>60) mL/min BUN/Creatinine Ratio (6-22) Glucose (80-110) mg/dL Lactate (0.7-2.1) mmol/L Calcium (8.4-10.2) mg/dL Ferritin 100 (18-464) ng/mL Total Bilirubin (0.2-1.3) mg/dL AST (17-59) IU/L ALT (<50) IU/L Alkaline Phosphatase (38-126) U/L Lactate Dehydrogenase 439 (313-618) U/L Total Creatine Kinase (55-170) U/L CK-MB (CK-2) CK-MB (CK-2) Rel Index Troponin I (0.01-0.034) ng/mL C-Reactive Protein 6.5 H (<1.0) mg/dL NT-Pro-B Natriuret Pep (<450) pg/mL Total Protein (6.3-8.2) g/dL Albumin (3.5-5.0) g/dL Globulin (1.7-4.1) g/dL Albumin/Globulin Ratio (1.0-2.8) Lipase (23-300) U/L Procalcitonin Cancelled (<0.5) ng/mL SARS-CoV-2 (PCR) (Negative) Imaging Data Chest x-ray: Radiologist's Impression: [address] [id number] ReportSigned Patient: Rui Fraire PMR#: [id number]: 2Acct:[id number]/Sex: 80 / MDate of Service: 03/02/20Loc: EDAccession Number: [id number] Procedure: XR chest 1V Ordering Provider: Kirby Tomas PROCEDURE: XR CHEST 1V INDICATIONS: chest pain TECHNIQUE: One view of the chest was acquired. COMPARISON: None. FINDINGS: Surgical changes and devices: None. Lungs and pleura: Mild generalized interstitial type infiltrates can be seen involving both lungs, right worse than left. No pleural effusions or pneumothorax. Mediastinum: Mediastinal contours appear normal. Heart size is normal. Bones and chest wall: No suspicious bony lesions. Age-appropriate bony degenerative changes are seen. Overlying soft tissues appear unremarkable. IMPRESSION: Mild generalized interstitial type infiltrates are seen. Please consider COVID pneumonia versus pulmonary edema. Dictated by: Marcio Sewell M.D. on 03/02/2020 at 9:38 Approved by: Marcio Sewell M.D. on 03/02/2020 at 9:42 ECG Data Attestation: I personally reviewed and interpreted this ECG as follows: Prior ECG tracings: not available for review Interpretation: Atrial fibrillation with RVR rate at 119. Left bundle branch block. IA interval *, QRS duration 164, QT/QTC 339/410. Tele strip 10 04/2019 during colonoscopy show similiar tracing in lead II but QRS in regular intervals. NO prevous 12 leads EKG available. MDM Narrative Medical decision making narrative: This is a 80-year-old male who presents to ED with chief complain of exertional short of breath with nonproductive cough, orthopnea, chest pressure and fever. Patient had ongoing symptoms for about 2 weeks and developed fever today. COVID test was negative. Physical exam appreciated tachypnea with marginal hypoxemia and new onset of AFib rate in 120s to 130s. EKG showed AFib rate in the 119 with left bundle-branch block. Ca rdiac enzymes were negative. Showed mild generalize interstitial type infiltrate in bilateral lobes worsen right-sided. Normal heart size. Concerned for pneumonia versus pulmonary edema. CBC shows leukocytosis of WBC 18.9 with mild anemia of H&H 11.2/34.4. Normal lactate of 1.8. Negative procalcitonin. Elevated CRP of 6.5. Mild hyponatremia and Slightly decreased Kidney function from his baseline. Elevated proBNP up to 2290 today without known history of heart failure. Which is patient's baseline 7 month ago. D-dimer was 285 negative for age-adjusted. HEART score is 6. [id number] score is 5, CURB-65 score is 2, qSOFA is 1. Respiratory panel is pending. Blood culture is pending. Patient received about 125 mL of normal saline infusion while in ED. patient received Rocephin 2 g and Zithromax 500 mg IV to treat pneumonia. Other COVID related labs are unremarkable. Dr. rFausto kindly accepted patient's care for inpatient for IV antibiotic medication treatment for pneumonia, hypoxia, new onset of AFib, and possible heart failure for further workup. Patient given 25 mg Toprol or XL for AFib rate in 110s. <Feliciano Ware DO - Last Filed: 03/03/20 06:47> Lab Data Labs: Lab Results 03/02/20 03/02/20 03/02/20 Range/Units 10:20 10:20 10:20 WBC 18.9 H (4.5-11.0) X10^3/uL RBC 4.02 L (4.5-5.9) X10^6/uL Hgb 11.2 L (13.5-17.5) g/dL Hct 34.4 L (41-53) % MCV 85.6 (80-100) fL MCH 27.7 (26-34) PG MCHC 32.4 (30-36) % RDW 14.2 (11.6-14.8) % Plt Count 312 (150-400) X10^3/uL Neut % (Auto) 78.5 H (50-75) % Lymph % (Auto) 9.4 L (25-40) % [place] % (Auto) 10.0 (3-14) % Eos % (Auto) 1.4 L (2-4) % Baso % (Auto) 0.7 (0-2) % Neut # (Auto) 70969 H (0114-8019) /uL Lymph # (Auto) 1800 (2694-4297) /uL [place] # (Auto) 1900 H (0-900) /uL Eos # (Auto) 300 (0-450) /uL Baso # (Auto) 100 (0-100) /uL PT 13.4 H (10.1-12.7) SECONDS INR 1.2 (0.9-1.3) APTT 31 (26.4-36.2) SECONDS D-Dimer (<230) ng/mL Sodium 134 L (137-145) mmol/L Potassium 4.6 (3.4-5.1) mmol/L Chloride 103 (98-107) mmol/L Carbon Dioxide 23 (22-32) mmol/L BUN 29 H (9-20) mg/dL Creatinine 1.48 H (0.66-1.25) mg/dL Estimated GFR 46.0 L (>60) mL/min BUN/Creatinine Ratio 19.6 (6-22) Glucose 166 H (80-110) mg/dL Lactate (0.7-2.1) mmol/L Calcium 9.0 (8.4-10.2) mg/dL Ferritin (18-464) ng/mL Total Bilirubin 0.8 (0.2-1.3) mg/dL AST 29 (17-59) IU/L ALT 32 (<50) IU/L Alkaline Phosphatase 83 (38-126) U/L Lactate Dehydrogenase (313-618) U/L Total Creatine Kinase 63 (55-170) U/L CK-MB (CK-2) TNP CK-MB (CK-2) Rel Index TNP Troponin I < 0.012 (0.01-0.034) ng/mL C-Reactive Protein (<1.0) mg/dL NT-Pro-B Natriuret Pep 2290 H (<450) pg/mL Total Protein 7.8 (6.3-8.2) g/dL Albumin 4.2 (3.5-5.0) g/dL Globulin 3.6 (1.7-4.1) g/dL Albumin/Globulin Ratio 1.2 (1.0-2.8) Lipase 78 (23-300) U/L Procalcitonin (<0.5) ng/mL SARS-CoV-2 (PCR) (Negative) 03/02/20 03/02/20 03/02/20 Range/Units 10:21 10:21 10:28 WBC (4.5-11.0) X10^3/uL RBC (4.5-5.9) X10^6/uL Hgb (13.5-17.5) g/dL Hct (41-53) % MCV (80-100) fL MCH (26-34) PG MCHC (30-36) % RDW (11.6-14.8) % Plt Count (150-400) X10^3/uL Neut % (Auto) (50-75) % Lymph % (Auto) (25-40) % [place] % (Auto) (3-14) % Eos % (Auto) (2-4) % Baso % (Auto) (0-2) % Neut # (Auto) (1039-9627) /uL Lymph # (Auto) (3085-8880) /uL [place] # (Auto) (0-900) /uL Eos # (Auto) (0-450) /uL Baso # (Auto) (0-100) /uL PT (10.1-12.7) SECONDS INR (0.9-1.3) APTT (26.4-36.2) SECONDS D-Dimer (<230) ng/mL Sodium (137-145) mmol/L Potassium (3.4-5.1) mmol/L Chloride (98-107) mmol/L Carbon Dioxide (22-32) mmol/L BUN (9-20) mg/dL Creatinine (0.66-1.25) mg/dL Estimated GFR (>60) mL/min BUN/Creatinine Ratio (6-22) Glucose (80-110) mg/dL Lactate 1.8 (0.7-2.1) mmol/L Calcium (8.4-10.2) mg/dL Ferritin (18-464) ng/mL Total Bilirubin (0.2-1.3) mg/dL AST (17-59) IU/L ALT (<50) IU/L Alkaline Phosphatase (38-126) U/L Lactate Dehydrogenase (313-618) U/L Total Creatine Kinase (55-170) U/L CK-MB (CK-2) CK-MB (CK-2) Rel Index Troponin I (0.01-0.034) ng/mL C-Reactive Protein (<1.0) mg/dL NT-Pro-B Natriuret Pep (<450) pg/mL Total Protein (6.3-8.2) g/dL Albumin (3.5-5.0) g/dL Globulin (1.7-4.1) g/dL Albumin/Globulin Ratio (1.0-2.8) Lipase (23-300) U/L Procalcitonin < 0.05 (<0.5) ng/mL SARS-CoV-2 (PCR) Negative (Negative) 03/02/20 03/02/20 03/02/20 Range/Units 10:41 10:41 10:41 WBC (4.5-11.0) X10^3/uL RBC (4.5-5.9) X10^6/uL Hgb (13.5-17.5) g/dL Hct (41-53) % MCV (80-100) fL MCH (26-34) PG MCHC (30-36) % RDW (11.6-14.8) % Plt Count (150-400) X10^3/uL Neut % (Auto) (50-75) % Lymph % (Auto) (25-40) % [place] % (Auto) (3-14) % Eos % (Auto) (2-4) % Baso % (Auto) (0-2) % Neut # (Auto) (8755-8251) /uL Lymph # (Auto) (5735-1372) /uL [place] # (Auto) (0-900) /uL Eos # (Auto) (0-450) /uL Baso # (Auto) (0-100) /uL PT (10.1-12.7) SECONDS INR (0.9-1.3) APTT (26.4-36.2) SECONDS D-Dimer 285 H (<230) ng/mL Sodium (137-145) mmol/L Potassium (3.4-5.1) mmol/L Chloride (98-107) mmol/L Carbon Dioxide (22-32) mmol/L BUN (9-20) mg/dL Creatinine (0.66-1.25) mg/dL Estimated GFR (>60) mL/min BUN/Creatinine Ratio (6-22) Glucose (80-110) mg/dL Lactate (0.7-2.1) mmol/L Calcium (8.4-10.2) mg/dL Ferritin 100 (18-464) ng/mL Total Bilirubin (0.2-1.3) mg/dL AST (17-59) IU/L ALT (<50) IU/L Alkaline Phosphatase (38-126) U/L Lactate Dehydrogenase 439 (313-618) U/L Total Creatine Kinase (55-170) U/L CK-MB (CK-2) CK-MB (CK-2) Rel Index Troponin I (0.01-0.034) ng/mL C-Reactive Protein 6.5 H (<1.0) mg/dL NT-Pro-B Natriuret Pep (<450) pg/mL Total Protein (6.3-8.2) g/dL Albumin (3.5-5.0) g/dL Globulin (1.7-4.1) g/dL Albumin/Globulin Ratio (1.0-2.8) Lipase (23-300) U/L Procalcitonin Cancelled (<0.5) ng/mL SARS-CoV-2 (PCR) (Negative) Discharge Plan Departure Patient Disposition: Admitted As Inpatient Clinical Impression: New onset a-fib, Elevated brain natriuretic peptide (BNP) level Pneumonia Qualifiers: Pneumonia type: due to unspecified organism Laterality: bilateral Lung location: unspecified part of lung Qualified Code(s): J18.9 - Pneumonia, uns pecified organism Admit Date/Time: 03/02/20 12:17 Admit Provider: Jessa Frausto <Feliciano Ware DO - Last Filed: 03/03/20 06:47> Cosign ED Attending Cosignature Attestation: I was immediately available in the department for consultation. This documentation has been reviewed and I agree with assessment and plan. Supervised by Feliciano Ware DO
[2020-03-02 10:38] LABS: Add Manual Diff / Slide Review NO; Basophils Absolute Auto 100 /uL (0-100); Basophils Percent Auto 0.7 % (0-2); Eosinophils Absolute Auto 300 /uL (0-450); Eosinophils Percent Auto 1.4 % (2-4); Hematocrit 34.4 % (41-53); Hemoglobin 11.2 g/dL (13.5-17.5); Lymphocytes Absolute Auto 1800 /uL (1100-4500); Lymphocytes Percent Auto 9.4 % (25-40); Mean Corpuscular HGB Conc 32.4 % (30-36); Mean Corpuscular Hemoglobin 27.7 PG (26-34); Mean Corpuscular Volume 85.6 fL (80-100); Monocytes Absolute Auto 1900 /uL (0-900); Neutrophils Absolute Auto 14900 /uL (1500-7000); Neutrophils Percent Auto 78.5 % (50-75); Platelet Count 312 X10^3/uL (150-400); Red Blood Cell Count 4.02 X10^6/uL (4.5-5.9); Red Cell Distribution Width 14.2 % (11.6-14.8); White Blood Cell Count 18.9 X10^3/uL (4.5-11.0)
[2020-03-02 10:45] LABS: INR 1.2 (0.9-1.3); Prothrombin Time 13.4 SECONDS (10.1-12.7)
[2020-03-02 10:48] LABS: PTT Partial Thromboplastin Tim 31 SECONDS (26.4-36.2)
[2020-03-02 10:52] LABS: COVID19 -Nasal RAPID Negative (Negative)
[2020-03-02 10:52] LABS: Alanine Aminotransferase 32 IU/L (<50); Albumin 4.2 g/dL (3.5-5.0); Albumin Globulin Ratio 1.2 (1.0-2.8); Alkaline Phosphatase 83 U/L (38-126); Aspartate Aminotransferase 29 IU/L (17-59); BUN Creatinine Ratio 19.6 (6-22); Bilirubin Total 0.8 mg/dL (0.2-1.3); Blood Urea Nitrogen 29 mg/dL (9-20); Carbon Dioxide 23 mmol/L (22-32); Chloride 103 mmol/L (98-107); Creatine Kinase 63 U/L (55-170); Globulin 3.6 g/dL (1.7-4.1); Glucose 166 mg/dL (80-110); HEMOLYSIS < 15 (0-50); Lipase 78 U/L (23-300); Potassium 4.6 mmol/L (3.4-5.1); Sodium 134 mmol/L (137-145); Total Protein 7.8 g/dL (6.3-8.2)
[2020-03-02 10:55] LABS: Lactate (Lactic Acid) 1.8 mmol/L (0.7-2.1)
[2020-03-02 11:03] LABS: NT-proBNP (BNP-Adult 18+) 2290 pg/mL (<450); Troponin I < 0.012 ng/mL (0.01-0.034)
[2020-03-02 11:08] LABS: D Dimer 285 ng/mL (<230)
[2020-03-02] MEDS: SODIUM CHLORIDE 0.9% 1,000 ML 125 ML IV (11:09)
[2020-03-02 11:18] LABS: C-Reactive Protein Quant 6.5 mg/dL (<1.0); Lactate Dehydrogenase 439 U/L (313-618)
[2020-03-02 11:38] LABS: Procalcitonin < 0.05 ng/mL (<0.5)
[2020-03-02 11:49] LABS: Ferritin 100 ng/mL (18-464)
[2020-03-02] MEDS: CEFTRIAXONE 2 GM/50 ML FROZ.PIGGY IV (12:04)
[2020-03-02] MEDS: METOPROLOL ER 25 MG TABLET PO (12:34)
[2020-03-02] MEDS: AZITHROMYCIN 500 MG in DEXTROSE 5% IN WATER 250 ML IV (12:37)
--- NOTE | 2020-03-02 13:15 | PC.NURSE ---
report to NATHANIEL Allred on AC #[id number]
--- NOTE | 2020-03-02 14:22 | PC.NURSE ---
Addendum entered by Pako Sharma R.N. 03/02/20 14:29: Pt has hx of JOHN. Does not use cpap. Reports trialing cpap and bipap. States It didn't work. Reports he was unable to sleep with either cpap or bipap which defeated the purpose of having one so use of both were discontinued. Original Note: Rec'd pt from ED to rm 224. Pt is AO x4. Walked with steady gait from stretcher to bed. Pt reports shortness of breath on exertion. Reports intermittent dry cough. On 2L NC with SPO2 95%. Admissions and assessment completed. Educated pt re dx, room, routine, fall risk, use of call light. Instructed pt to call and wait for assistance before getting OOB. He verbalizes understanding.
[2020-03-02 14:49] LABS: Adenovirus Not Detected (Not Detect); Bordetella pertussis Not Detected (Not Detect); Chlamydophila pneumoniae Not Detected (Not Detect); Coronavirus 229E Not Detected (Not Detect); Coronavirus HKU1 Not Detected (Not Detect); Coronavirus NL 63 Not Detected (Not Detect); Coronavirus OC43 Not Detected (Not Detect); Human Metapneumovirus Not Detected (Not Detect); Human Rhinovirus/Enterovirus Not Detected (Not Detect); Influenza A Not Detected (Not Detect); Influenza B Not Detected (Not Detect); Parainfluenza Virus 1 Not Detected (Not Detect); Parainfluenza Virus 2 Not Detected (Not Detect); Parainfluenza Virus 3 Not Detected (Not Detect); Parainfluenza Virus 4 Not Detected (Not Detect); Respiratory Syncytial Virus Not Detected (Not Detect); SARS- CoV-2 Not Detected (Not Detecte)
[2020-03-02 14:50] LABS: Mycoplasma pneumoniae Not Detected (Not Detect)
--- NOTE | 2020-03-02 15:50 | PM.HP.1 ---
History of Present Illness History of Present Illness Date Patient Seen: 03/02/20 Chief complaint: congestion,cough,shortness of breath,heart rate up Narrative: The patient is a 80-year-old male with a history of hypertension, obesity, obstructive sleep apnea who presents with chief complaint of shortness of breath, fever, cough and exertional dyspnea. Patient reports his symptoms began a month ago. At that time he noted being short of breath with minimal activity. He actually likes to stand for some wood working at home. He thought it was related to that and the symptoms resolved. The patient likes to bike regularly when the weather permits and noticed recently that he was unable to keep up because of his shortness of breath. He also noted over the past few days a dry nonproductive cough. Patient took his temperature where it was 100?. He called his PCP's office and was referred to the hospital for evaluation. In the hospital the patient did have a COVID test which was negative. His respiratory viral panel is negative as well. The patient does report intermittent palpitations. He describes orthopnea. He has occasional lower extremity edema. Patient reports his weight has fluctuated by 20 lb with minimal activity. He also reports chest discomfort which has been recent with his current symptoms. He describes chest pressure which is midsternal nonradiating that appears to be worse when lying flat. His symptoms appear to be better when leaning forward. He denies any radiation, any associated nausea, no diaphoresis. The patient is hypertensive, has borderline hyperlipidemia, overweight, but no history of cardiac disease. He does report a history of stress test 2 years ago which was negative. The patient was evaluated in the emergency room. His white count was elevated at 18.9. Chest x-ray suggest a bilateral interstitial infiltrates. Patient is admitted to the hospital for treatment and evaluation of community-acquired pneumonia. Patient History Medical History Adenomatous polyp Hypertension Melanoma Obesity JOHN (obstructive sleep apnea) Surgical History History of cataract surgery Family & Social History Family History (Updated 03/02/20 @ 15:58 by Jessa Frausto MD) Mother Congestive heart failure Social History: household members spouse Safety & Behavioral: Feels Safe in Current Yes Environment Been Physically Hurt or No Threatened By a Person Suicidal Ideation Description None Tobacco & Substance use: Tobacco type cigarettes Smoking Status Former smoker Smoking packs per day 1 alcohol intake frequency holiday/special occasion Substance Use Type does not use Meds Home Medications and Allergies Home Medications Medication Instructions Recorded Confirmed Type losartan [Cozaar] 50 mg PO BID 04/14/19 03/02/20 History spironolactone [Aldactone] 25 mg PO DAILY 04/14/19 03/02/20 History amlodipine 10 mg PO BEDTIME 03/02/20 03/02/20 History aspirin 81 mg PO BEDTIME 03/02/20 03/02/20 History atenolol-chlorthalidone 1 tab PO DAILY 03/02/20 03/02/20 History cholecalciferol (vitamin D3) 50 mcg PO DAILY 03/02/20 03/02/20 History [Vitamin D3] metronidazole 1 applic TOPICAL DAILY PRN 03/02/20 03/02/20 History [id number] 2 tab PO DAILY 03/02/20 03/02/20 History [Mature Adult Century] Allergies Allergy/AdvReac Type Severity Reaction Status Date / Time atorvastatin [From Lipitor] AdvReac Mild Verified 03/02/20 10:24 amitriptyline AdvReac Verified 03/02/20 14:20 Review of Systems Review of Systems ROS: Yes All systems reviewed with the patient and are negative except as otherwise documented Exam Vital Signs (past 8 hours): - 03/02/20 10:00 03/02/20 10:29 03/02/20 10:30 Temperature 98.9 F Pulse Rate 124 H 126 H 127 H Respiratory Rate 32 H 27 H 30 H Blood Pressure 118/79 Pulse Oximetry 93 93 91 03/02/20 10:45 03/02/20 11:00 03/02/20 11:15 Temperature Pulse Rate 119 H 125 H 119 H Respiratory Rate 13 12 28 H Blood Pressure 127/66 141/65 H 112/71 Pulse Oximetry 92 93 94 03/02/20 11:30 03/02/20 11:45 03/02/20 12:00 Temperature Pulse Rate 117 H 116 H 115 H Respiratory Rate 27 H 18 15 Blood Pressure 117/80 110/60 122/68 Pulse Oximetry 94 94 95 03/02/20 12:15 03/02/20 12:30 03/02/20 12:31 Temperature Pulse Rate 117 H 116 H 110 H Respiratory Rate 16 24 Blood Pressure 117/63 124/60 Pulse Oximetry 95 93 95 03/02/20 12:45 03/02/20 13:00 03/02/20 14:03 Temperature 97.5 F L Pulse Rate 115 H 107 H 108 H Respiratory Rate 27 H 28 H 18 Blood Pressure 152/66 H 109/67 Pulse Oximetry 94 93 93 Oxygen Delivery Method Nasal Cannula Narrative Exam Narrative: Pleasant 80-year-old male in no obvious distress HEENT: Normocephalic atraumatic, extraocular muscles are intact, oropharynx is clear, neck is supple, no adenopathy or thyromegaly Lungs: Decreased breath sounds with scattered rhonchi bilaterally Cardiac exam: Tachycardic irregularly irregular normal S1-S2 with a 2/6 systolic ejection murmur Abdomen: Obese soft nontender no hepatosplenomegaly noted no rebound tender, no board-like rigidity Extremities: Trace edema bilaterally Neuro exam: Cranial nerves 2-12 are intact, strength is symmetric and equal, sensation is grossly intact, reflexes are equal, gait is not assessed Psychiatric exam: Patient is awake alert and oriented, he answers questions appropriately, no delusions, hallucinations, or tics Objective Labs Result Diagrams: 03/02/20 10:20 03/02/20 10:20 Labs: Laboratory Results - last 24 hr 03/02/20 03/02/20 03/02/20 10:20 10:20 10:20 WBC 18.9 H RBC 4.02 L Hgb 11.2 L Hct 34.4 L MCV 85.6 MCH 27.7 MCHC 32.4 RDW 14.2 Plt Count 312 Neut % (Auto) 78.5 H Lymph % (Auto) 9.4 L [place] % (Auto) 10.0 Eos % (Auto) 1.4 L Baso % (Auto) 0.7 Neut # (Auto) 24391 H Lymph # (Auto) 1800 [place] # (Auto) 1900 H Eos # (Auto) 300 Baso # (Auto) 100 PT 13.4 H INR 1.2 APTT 31 D-Dimer Sodium 134 L Potassium 4.6 Chloride 103 Carbon Dioxide 23 BUN 29 H Creatinine 1.48 H Estimated GFR 46.0 L BUN/Creatinine Ratio 19.6 Glucose 166 H Lactate Calcium 9.0 Ferritin Total Bilirubin 0.8 AST 29 ALT 32 Alkaline Phosphatase 83 Lactate Dehydrogenase Total Creatine Kinase 63 CK-MB (CK-2) TNP CK-MB (CK-2) Rel Index TNP Troponin I < 0.012 C-Reactive Protein NT-Pro-B Natriuret Pep 2290 H Total Protein 7.8 Albumin 4.2 Globulin 3.6 Albumin/Globulin Ratio 1.2 Lipase 78 Procalcitonin Chlamy pneumoniae PCR Adenovirus (PCR) B.parapertussis DNA PCR Coronavirus OC43 (PCR) Coronavirus HKU1 (PCR) Coronavirus 229E (PCR) SARS-CoV-2 (PCR) Coronavirus NL63 (PCR) Human Metapneumovir PCR Influenza Type A (PCR) Influenza Type B (PCR) M. pneumoniae (PCR) Parainfluenza 1 (PCR) Parainfluenza 2 (PCR) Parainfluenza 3 (PCR) Parainfluenza 4 (PCR) RSV (PCR) Entero/Rhino (PCR) 03/02/20 03/02/20 03/02/20 10:21 10:21 10:28 WBC RBC Hgb Hct MCV MCH MCHC RDW Plt Count Neut % (Auto) Lymph % (Auto) [place] % (Auto) Eos % (Auto) Baso % (Auto) Neut # (Auto) Lymph # (Auto) [place] # (Auto) Eos # (Auto) Baso # (Auto) PT INR APTT D-Dimer Sodium Potassium Chloride Carbon Dioxide BUN Creatinine Estimated GFR BUN/Creatinine Ratio Glucose Lactate 1.8 Calcium Ferritin Total Bilirubin AST ALT Alkaline Phosphatase Lactate Dehydrogenase Total Creatine Kinase CK-MB (CK-2) CK-MB (CK-2) Rel Index Troponin I C-Reactive Protein NT-Pro-B Natriuret Pep Total Protein Albumin Globulin Albumin/Globulin Ratio Lipase Procalcitonin < 0.05 Chlamy pneumoniae PCR Adenovirus (PCR) B.parapertussis DNA PCR Coronavirus OC43 (PCR) Coronavirus HKU1 (PCR) Coronavirus 229E (PCR) SARS-CoV-2 (PCR) Negative Coronavirus NL63 (PCR) Human Metapneumovir PCR Influenza Type A (PCR) Influenza Type B (PCR) M. pneumoniae (PCR) Parainfluenza 1 (PCR) Parainfluenza 2 (PCR) Parainfluenza 3 (PCR) Parainfluenza 4 (PCR) RSV (PCR) Entero/Rhino (PCR) 03/02/20 03/02/20 03/02/20 10:41 10:41 10:41 WBC RBC Hgb Hct MCV MCH MCHC RDW Plt Count Neut % (Auto) Lymph % (Auto) [place] % (Auto) Eos % (Auto) Baso % (Auto) Neut # (Auto) Lymph # (Auto) [place] # (Auto) Eos # (Auto) Baso # (Auto) PT INR APTT D-Dimer 285 H Sodium Potassium Chloride Carbon Dioxide BUN Creatinine Estimated GFR BUN/Creatinine Ratio Glucose Lactate Calcium Ferritin 100 Total Bilirubin AST ALT Alkaline Phosphatase Lactate Dehydrogenase 439 Total Creatine Kinase CK-MB (CK-2) CK-MB (CK-2) Rel Index Troponin I C-Reactive Protein 6.5 H NT-Pro-B Natriuret Pep Total Protein Albumin Globulin Albumin/Globulin Ratio Lipase Procalcitonin Cancelled Chlamy pneumoniae PCR Adenovirus (PCR) B.parapertussis DNA PCR Coronavirus OC43 (PCR) Coronavirus HKU1 (PCR) Coronavirus 229E (PCR) SARS-CoV-2 (PCR) Coronavirus NL63 (PCR) Human Metapneumovir PCR Influenza Type A (PCR) Influenza Type B (PCR) M. pneumoniae (PCR) Parainfluenza 1 (PCR) Parainfluenza 2 (PCR) Parainfluenza 3 (PCR) Parainfluenza 4 (PCR) RSV (PCR) Entero/Rhino (PCR) 03/02/20 13:07 WBC RBC Hgb Hct MCV MCH MCHC RDW Plt Count Neut % (Auto) Lymph % (Auto) [place] % (Auto) Eos % (Auto) Baso % (Auto) Neut # (Auto) Lymph # (Auto) [place] # (Auto) Eos # (Auto) Baso # (Auto) PT INR APTT D-Dimer Sodium Potassium Chloride Carbon Dioxide BUN Creatinine Estimated GFR BUN/Creatinine Ratio Glucose Lactate Calcium Ferritin Total Bilirubin AST ALT Alkaline Phosphatase Lactate Dehydrogenase Total Creatine Kinase CK-MB (CK-2) CK-MB (CK-2) Rel Index Troponin I C-Reactive Protein NT-Pro-B Natriuret Pep Total Protein Albumin Globulin Albumin/Globulin Ratio Lipase Procalcitonin Chlamy pneumoniae PCR Not detected Adenovirus (PCR) Not detected B.parapertussis DNA PCR Not detected Coronavirus OC43 (PCR) Not detected Coronavirus HKU1 (PCR) Not detected Coronavirus 229E (PCR) Not detected SARS-CoV-2 (PCR) Not detected Coronavirus NL63 (PCR) Not detected Human Metapneumovir PCR Not detected Influenza Type A (PCR) Not detected Influenza Type B (PCR) Not detected M. pneumoniae (PCR) Not detected Parainfluenza 1 (PCR) Not detected Parainfluenza 2 (PCR) Not detected Parainfluenza 3 (PCR) Not detected Parainfluenza 4 (PCR) Not detected RSV (PCR) Not detected Entero/Rhino (PCR) Not detected Assessment & Plan Assessment & Plan narrative: Impression 1. 80-year-old male admitted to the hospital for progressive dyspnea on exertion -patient presents with cough, fever, chest x-ray with interstitial infiltrate -procalcitonin, normal, lactate 1.8, respiratory viral panel is negative, [id number] negative -suspect community-acquired pneumonia -will start IV ceftriaxone and azithromycin -will repeat procalcitonin in the morning -may need to repeat SARs COVID too at discharged as well. 2. Orthopnea -probable congestive heart failure -elevated proBNP of over 2000 -lower extremity edema noted -will obtain cardiac echo -will continue TONY-inhibitor, spironolactone, for now -defer IV hydration 3. Paroxysmal atrial fibrillation, present on admission -patient reports a history of palpitation but no history of atrial fibrillation -given his chads Vasc 2 score patient should be anticoagulanted -will start metoprolol this evening -will start DVT prophylaxis -will discuss Xarelto versus Coumadin with the patient tomorrow -atrial fibrillation may be contributing to his shortness of breath precipitating congestive heart failure 4. Obstructive sleep apnea --chronic, patient does not use CPAP, this likely will contribute to his atrial fibrillation and possible heart failure 5. Chest pain -cardiac enzymes negative -may be precipitated by paroxysmal atrial fibrillation -will obtain serial EKG and cardiac enzymes and echo 6. Hypertension -continue losartan, spironolactone -will hold amlodipine -will initiate metoprolol 50 Q 6 for rate control for paroxysmal atrial fibrillation, this will work to improve hypertension as well 7. Obesity -likely contributing to obstructive sleep apnea, this may also be related to probable heart failure and or paroxysmal atrial fibrillation -patient has made multiple attempts to lose weight unsuccessfully -will consult Nutrition regarding dietary therapy Patient is a full code will note that his record accordingly Will start Lovenox for DVT prophylaxis Patient's is his surrogate decision maker
[2020-03-02] MEDS: METOPROLOL IR 50 MG TABLET PO (17:09)
[2020-03-02 17:11] LABS: Add Manual Diff / Slide Review NO; Basophils Absolute Auto 100 /uL (0-100); Basophils Percent Auto 0.9 % (0-2); Eosinophils Absolute Auto 200 /uL (0-450); Eosinophils Percent Auto 1.1 % (2-4); Hematocrit 33.2 % (41-53); Lymphocytes Absolute Auto 1700 /uL (1100-4500); Mean Corpuscular HGB Conc 33.2 % (30-36); Mean Corpuscular Hemoglobin 28.6 PG (26-34); Mean Corpuscular Volume 86.4 fL (80-100); Monocytes Absolute Auto 1400 /uL (0-900); Monocytes Percent Auto 8.9 % (3-14); Neutrophils Absolute Auto 12300 /uL (1500-7000); Neutrophils Percent Auto 78.1 % (50-75); Platelet Count 321 X10^3/uL (150-400); Red Blood Cell Count 3.85 X10^6/uL (4.5-5.9); Red Cell Distribution Width 14.4 % (11.6-14.8); White Blood Cell Count 15.8 X10^3/uL (4.5-11.0)
[2020-03-02 17:23] LABS: Blood Urea Nitrogen 29 mg/dL (9-20); Calcium 8.8 mg/dL (8.4-10.2); Carbon Dioxide 26 mmol/L (22-32); Chloride 102 mmol/L (98-107); Creatine Kinase 55 U/L (55-170); Estimated Glomerular Filt Rate 47.1 mL/min (>60); Glucose 130 mg/dL (80-110); HEMOLYSIS < 15 (0-50); Potassium 4.7 mmol/L (3.4-5.1); Sodium 137 mmol/L (137-145)
[2020-03-02 17:35] LABS: Troponin I 0.014 ng/mL (0.01-0.034)
[2020-03-02] MEDS: LOSARTAN 50 MG TABLET PO (20:33)
[2020-03-02] MEDS: SENNOSIDES 8.6 MG TABLET 17.2 MG PO (20:33)
[2020-03-02] MEDS: DOCUSATE 100 MG CAPSULE PO (20:33)
[2020-03-03] VITALS (15 sets, daily range): BP systolic 99–114; BP diastolic 43–85; PULSE 93–111; RESP 16–22; TEMP 36.1–36.6; O2SAT 90–97
[2020-03-03] MEDS: METOPROLOL IR 50 MG TABLET PO ×4 (00:05→17:40)
[2020-03-03 05:48] LABS: Add Manual Diff / Slide Review NO; Basophils Absolute Auto 100 /uL (0-100); Basophils Percent Auto 0.7 % (0-2); Eosinophils Absolute Auto 300 /uL (0-450); Eosinophils Percent Auto 1.6 % (2-4); Hematocrit 33.2 % (41-53); Hemoglobin 10.7 g/dL (13.5-17.5); Lymphocytes Absolute Auto 1800 /uL (1100-4500); Lymphocytes Percent Auto 10.4 % (25-40); Mean Corpuscular HGB Conc 32.3 % (30-36); Mean Corpuscular Hemoglobin 27.9 PG (26-34); Mean Corpuscular Volume 86.5 fL (80-100); Monocytes Absolute Auto 1800 /uL (0-900); Monocytes Percent Auto 10.6 % (3-14); Neutrophils Absolute Auto 13400 /uL (1500-7000); Neutrophils Percent Auto 76.7 % (50-75); Platelet Count 337 X10^3/uL (150-400); Red Blood Cell Count 3.84 X10^6/uL (4.5-5.9); Red Cell Distribution Width 14.4 % (11.6-14.8); White Blood Cell Count 17.4 X10^3/uL (4.5-11.0)
[2020-03-03 05:59] LABS: Alanine Aminotransferase 30 IU/L (<50); Albumin 3.9 g/dL (3.5-5.0); Albumin Globulin Ratio 1.1 (1.0-2.8); Alkaline Phosphatase 75 U/L (38-126); Aspartate Aminotransferase 27 IU/L (17-59); BUN Creatinine Ratio 20.9 (6-22); Bilirubin Total 0.8 mg/dL (0.2-1.3); Blood Urea Nitrogen 32 mg/dL (9-20); Calcium 8.9 mg/dL (8.4-10.2); Carbon Dioxide 27 mmol/L (22-32); Chloride 103 mmol/L (98-107); Estimated Glomerular Filt Rate 44.2 mL/min (>60); Globulin 3.4 g/dL (1.7-4.1); Glucose 129 mg/dL (80-110); HEMOLYSIS < 15 (0-50); Potassium 4.2 mmol/L (3.4-5.1); Sodium 135 mmol/L (137-145); Total Protein 7.3 g/dL (6.3-8.2)
[2020-03-03 06:27] LABS: Thyroid Stimulating Hormone 0.773 uIU/mL (0.47-4.68)
[2020-03-03] MEDS: ENOXAPARIN 40 MG/0.4 ML SYRINGE SUBCUT (09:18)
[2020-03-03] MEDS: DOCUSATE 100 MG CAPSULE PO ×2 (09:18→20:59)
[2020-03-03] MEDS: ASPIRIN EC 81 MG TABLET PO (09:18)
[2020-03-03] MEDS: MULTIVITAMIN 1 TABLET 1 TAB PO (09:18)
[2020-03-03] MEDS: SPIRONOLACTONE 25 MG TABLET PO (09:18)
[2020-03-03] MEDS: LOSARTAN 50 MG TABLET PO (09:19)
--- NOTE | 2020-03-03 10:12 | PC.NURSE ---
Addendum entered by Carlita Gonzalez R.N. 03/03/20 14:24: Echo in room currently. ABX infused and tolerated well. pt reporting improvements with oxygen but O2 is low 90's on 2.5L. Original Note: AM shift report. pt AO, receptive to care, [facility] [employer] [employer] [place]. R wrist PIV asymptomatic. 3L NC at start of shift and able to titrate to 2.5 at this point of the shift with O2 sats at 94% but reporting heaviness to chest after activity. SBA to BR for small, soft BM and voiding without concerns. Clear but diminished lung sounds. Tele reading Afib and BBB. Denying pain. +3 pitting edema to bilateral lower extremities. Tolerating heart healthy diet.
[2020-03-03] MEDS: CEFTRIAXONE 2 GM/50 ML FROZ.PIGGY IV (12:00)
[2020-03-03] MEDS: SODIUM CHLORIDE 0.9% FLUSH 10 ML IV (12:01)
--- NOTE | 2020-03-03 12:24 | CM.DANOTE ---
DCP: Case received, EMR reviewed and met with patient. Introduced self and role. Was able to obtain information from patient regarding his baseline activity status prior to hospitalization. DCP assessment completed with information currently available. Patient is a 80 year old male who admitted yesterday afternoon to the care of the hospitalist team. PCP: Dr. Sauer. Payer: confirmed: Medicare/[employer]. Patient came to the hospital via private vehicle secondary to having some shortness of breath, as well as coughing. He was diagnosed with pneumonia. Patient was a former smoker. Met with patient in his room. He is alert and oriented, independent at baseline. He does bike riding as his hobby and exercise. He had noticed that when he was riding his bike, he had become more short of breath, and stated, he couldn't keep up with his fellow riders. Patient resides in [place] with his , Tracie. Confirmed that his primary care provider is Dr. Sauer. He does not use any DME supplies. P: DCP to continue to follow. Patient should be able to go home when he is medically stable. Shena Saldana RN/Agricultural Education Professor
[2020-03-03] MEDS: AZITHROMYCIN 500 MG in DEXTROSE 5% IN WATER 250 ML IV (13:03)
--- NOTE | 2020-03-03 15:21 | P.PN_ITS ---
Subjective Subjective Date Patient Seen: 03/03/20 Interval history: The patient is a 80-year-old male who was admitted to the hospital for acute exertional dyspnea. Chest x-ray confirmed bibasilar infiltrates. In addition the patient complained of orthopnea peripheral edema and had an elevated proBNP. This was suggestive of congestive heart failure. Patient has known CPAP. He is awaiting a cardiac echo. His he reports his breathing is improved however he is now requiring oxygen as he is hypoxic. Patient has no further chest pain. Exam Vital Signs (past 8 hours): - 03/03/20 08:00 03/03/20 08:41 03/03/20 10:48 Temperature 98 F Pulse Rate 106 H 104 H Respiratory Rate 18 18 Blood Pressure 102/62 Pulse Oximetry 93 91 94 03/03/20 11:56 03/03/20 12:10 Temperature Pulse Rate 108 H Respiratory Rate 18 Blood Pressure 104/58 L Pulse Oximetry 97 97 Oxygen Delivery Method Nasal Cannula Oxygen Flow Rate 2.5 Narrative Exam Narrative: Pleasant gentleman resting comfortably in no obvious distress Lungs: Decreased breath sounds bilaterally Cardiac exam: Regular rate and rhythm normal S1-S2 Abdomen: Soft nontender nondistended Extremities: Trace edema bilateral Objective Labs Result Diagrams: 03/03/20 05:00 03/03/20 05:00 Labs: Laboratory Results - last 24 hr 03/02/20 03/02/20 03/02/20 17:04 17:04 17:04 WBC 15.8 H RBC 3.85 L Hgb 11.0 L Hct 33.2 L MCV 86.4 MCH 28.6 MCHC 33.2 RDW 14.4 Plt Count 321 Neut % (Auto) 78.1 H Lymph % (Auto) 11.0 L [place] % (Auto) 8.9 Eos % (Auto) 1.1 L Baso % (Auto) 0.9 Neut # (Auto) 34106 H Lymph # (Auto) 1700 [place] # (Auto) 1400 H Eos # (Auto) 200 Baso # (Auto) 100 Sodium 137 Potassium 4.7 Chloride 102 Carbon Dioxide 26 BUN 29 H Creatinine 1.45 H Estimated GFR 47.1 L BUN/Creatinine Ratio 20.0 Glucose 130 H Calcium 8.8 Total Bilirubin AST ALT Alkaline Phosphatase Total Creatine Kinase 55 CK-MB (CK-2) TNP CK-MB (CK-2) Rel Index TNP Troponin I 0.014 Total Protein Albumin Globulin Albumin/Globulin Ratio TSH 03/03/20 03/03/20 03/03/20 05:00 05:00 05:00 WBC 17.4 H RBC 3.84 L Hgb 10.7 L Hct 33.2 L MCV 86.5 MCH 27.9 MCHC 32.3 RDW 14.4 Plt Count 337 Neut % (Auto) 76.7 H Lymph % (Auto) 10.4 L [place] % (Auto) 10.6 Eos % (Auto) 1.6 L Baso % (Auto) 0.7 Neut # (Auto) 94134 H Lymph # (Auto) 1800 [place] # (Auto) 1800 H Eos # (Auto) 300 Baso # (Auto) 100 Sodium 135 L Potassium 4.2 Chloride 103 Carbon Dioxide 27 BUN 32 H Creatinine 1.53 H Estimated GFR 44.2 L BUN/Creatinine Ratio 20.9 Glucose 129 H Calcium 8.9 Total Bilirubin 0.8 AST 27 ALT 30 Alkaline Phosphatase 75 Total Creatine Kinase CK-MB (CK-2) CK-MB (CK-2) Rel Index Troponin I Total Protein 7.3 Albumin 3.9 Globulin 3.4 Albumin/Globulin Ratio 1.1 TSH 0.773 [facility] Medical History Adenomatous polyp Hypertension Melanoma Obesity JOHN (obstructive sleep apnea) Surgical History History of cataract surgery Family History (Updated 03/02/20 @ 15:58 by Jessa Frausto MD) Mother Congestive heart failure Social History household members: spouse Smoking Status: Former smoker Assessment & Plan Assessment & Plan narrative: Impression 1. 80-year-old male admitted to the hospital for pneumonia -patient presented with an elevated white count of 18.9, white count today is 17,000, he is now hypoxic -overall he feels improved -COVID-19 negative -will continue azithromycin and ceftriaxone for now -given orthopnea and pedal edema will await cardiac echo 2. Acute hypoxic respiratory failure -patient appears to be more hypoxic today -given elevated proBNP, orthopnea, will start 20 mg of IV Lasix -will await 2D echo to rule out acute systolic versus diastolic heart failure -no further chest pain, cardiac enzymes are negative -patient now on 2.5 L to maintain O2 sat 3. Acute renal failure -etiology not clear -doubt prerena azotemia -will hold losartan -will hold spironolactone -no further chlorthalidone -will repeat labs in the morning 4. Hypertension -continue metoprolol 5. Obstructive sleep apnea -chronic -patient is not normally on Cpap 6. Obesity -likely contributing to sleep apnea -this may also be contributing to heart failure -nutrition consultation -obesity likely contributing to underlying hypoxia as well
--- NOTE | 2020-03-03 15:29 | PM.PN.1 ---
Subjective Subjective Date Patient Seen: 03/04/20 Interval history: The patient is a 80-year-old male who was admitted to the hospital for exertional dyspnea. He was found to have bilateral pneumonia, patient now has acute hypoxic respiratory failure. Echocardiogram confirmed acute systolic heart failure with an ejection fraction of 20%. The patient has received Lasix x2. He has had some good urine output. He has had improvement in his shortness of breath but still notes some shortness of breath with minimal exertion. He has no further chest pain. Exam Vital Signs (past 8 hours): - 03/03/20 08:00 03/03/20 08:41 03/03/20 10:48 Temperature 98 F Pulse Rate 106 H 104 H Respiratory Rate 18 18 Blood Pressure 102/62 Pulse Oximetry 93 91 94 03/03/20 11:56 03/03/20 12:10 Temperature Pulse Rate 108 H Respiratory Rate 18 Blood Pressure 104/58 L Pulse Oximetry 97 97 Oxygen Delivery Method Nasal Cannula Oxygen Flow Rate 2.5 Narrative Exam Narrative: Pleasant elderly male resting comfortably in no obvious distress Lungs: Decreased breath sounds with occasional basilar crackles noted bilaterally Cardiac exam irregularly irregular, normal S1-S2, 2/6 systolic ejection murmur Abdomen: Soft nontender nondistended Extremities: 1+ edema bilaterally Objective Labs Result Diagrams: 03/03/20 05:00 03/03/20 05:00 Labs: Laboratory Results - last 24 hr 03/02/20 03/02/20 03/02/20 17:04 17:04 17:04 WBC 15.8 H RBC 3.85 L Hgb 11.0 L Hct 33.2 L MCV 86.4 MCH 28.6 MCHC 33.2 RDW 14.4 Plt Count 321 Neut % (Auto) 78.1 H Lymph % (Auto) 11.0 L [place] % (Auto) 8.9 Eos % (Auto) 1.1 L Baso % (Auto) 0.9 Neut # (Auto) 02991 H Lymph # (Auto) 1700 [place] # (Auto) 1400 H Eos # (Auto) 200 Baso # (Auto) 100 Sodium 137 Potassium 4.7 Chloride 102 Carbon Dioxide 26 BUN 29 H Creatinine 1.45 H Estimated GFR 47.1 L BUN/Creatinine Ratio 20.0 Glucose 130 H Calcium 8.8 Total Bilirubin AST ALT Alkaline Phosphatase Total Creatine Kinase 55 CK-MB (CK-2) TNP CK-MB (CK-2) Rel Index TNP Troponin I 0.014 Total Protein Albumin Globulin Albumin/Globulin Ratio TSH 03/03/20 03/03/20 03/03/20 05:00 05:00 05:00 WBC 17.4 H RBC 3.84 L Hgb 10.7 L Hct 33.2 L MCV 86.5 MCH 27.9 MCHC 32.3 RDW 14.4 Plt Count 337 Neut % (Auto) 76.7 H Lymph % (Auto) 10.4 L [place] % (Auto) 10.6 Eos % (Auto) 1.6 L Baso % (Auto) 0.7 Neut # (Auto) 15222 H Lymph # (Auto) 1800 [place] # (Auto) 1800 H Eos # (Auto) 300 Baso # (Auto) 100 Sodium 135 L Potassium 4.2 Chloride 103 Carbon Dioxide 27 BUN 32 H Creatinine 1.53 H Estimated GFR 44.2 L BUN/Creatinine Ratio 20.9 Glucose 129 H Calcium 8.9 Total Bilirubin 0.8 AST 27 ALT 30 Alkaline Phosphatase 75 Total Creatine Kinase CK-MB (CK-2) CK-MB (CK-2) Rel Index Troponin I Total Protein 7.3 Albumin 3.9 Globulin 3.4 Albumin/Globulin Ratio 1.1 TSH 0.773 [facility] Medical History Adenomatous polyp Hypertension Melanoma Obesity JOHN (obstructive sleep apnea) Surgical History History of cataract surgery Family History (Updated 03/02/20 @ 15:58 by Jessa Frausto MD) Mother Congestive heart failure Social History household members: spouse Smoking Status: Former smoker Assessment & Plan Assessment & Plan narrative: Impression 1. Acute hypoxic respiratory failure -patient has acute systolic heart failure, echocardiogram confirmed ejection fraction of 20% -patient currently receiving IV Lasix -prior a stress test was negative, given his new diagnosis of systolic heart failure would recommend stress test prior to discharge -we will add TONY-inhibitor prior to discharge and once blood pressure has stabilized 2. Acute systolic heart failure -continue diuresis -echo reveals LV function at 20% -will discuss with Cardiology, anticipate outpatient stress test 3. Paroxysmal atrial fibrillation -continue metoprolol 50 Q 6 -continue Xarelto 20 q.day 4. Community-acquired pneumonia -continue azithromycin and ceftriaxone -will switch to oral antibiotics at discharge 5. Obstructive sleep apnea -patient not on BiPAP or CPAP 6. Obesity -likely contributing to obstructive sleep apnea and heart failure Discharge home once the patient is little no longer hypoxic in respiratory function is back to baseline
--- NOTE | 2020-03-03 15:46 | DI.ECHO.S_ITS ---
[place] [facility]---------+ [facility] +---------+ : : [address] [place] : : : : [id number] : : : : Phone: [phone] Echocardiogram Report + + :Name: ALLEY MAC Study Date: 03/03/2020 Height: 65 in : :[facility] Weight: 253 lb : : Gender: Male BSA: 2.2 m2 : :: 1940 Age: 80 yrs BP: 104/58 mmHg: :Reason For Study: SHORTNESS OF BREATH : :Ordering Physician: Faviola : :Hospitalist Performed By: Katelyn Mustafa : :Referring: CASSIUS OLIVAS : + + Interpretation Summary 1) Normal left ventricular size and severely reduced systolic function (EF 20- 25%). 2) Upper normal right ventricular size with mildly reduced function. 3) Moderate mitral regurgitation present. 4) The right ventricular systolic pressure is estimated to be at least 47 mmHg based on an estimated right atrial pressure of 15 mm Hg. 5) No prior Echo available for comparison. Procedure: A two-dimensional transthoracic echocardiogram with color flow and Doppler was performed. The study quality was technically adequate. A contrast injection of Definity was performed to improve assessment of LV function. There is no prior echocardiogram noted for this patient. The patient was in atrial fibrillation with heart rates between 76-103 bpm during the exam. Left Ventricle: The left ventricle is normal in size. Left ventricular wall thickness is mildly increased. There is no ventricular septal defect visualized. There is no thrombus. The ejection fraction is estimated to be 20- 25%. There is severe global hypokinesis of the left ventricle. Diastolic function could not be accurately assessed due to atrial fibrillation. Right Ventricle: The right ventricle is at the upper limits of normal in size. Right ventricular systolic function is mildly reduced. Atria: The left atrium is moderately dilated. Right atrial size is normal. There is no Doppler evidence for an interatrial shunt. Mitral Valve: The mitral valve leaflets are slightly calcified. There is mild mitral annular calcification. There is moderate mitral regurgitation. Aortic Valve: The aortic valve opens well. There is no aortic valve stenosis. No aortic regurgitation is present. Tricuspid Valve: The tricuspid valve is normal in structure and function. There is mild tricuspid regurgitation. The right ventricular systolic pressure is estimated to be at least 47 mmHg based on an estimated right atrial pressure of 15 mm Hg. Pulmonic Valve: The pulmonic valve is not well visualized. Great Vessels: The aortic root is normal size. The ascending aorta is at the upper limits of normal in size. The IVC is dilated (diameter is greater than 2.1 cm) and it collapses less than 50% with a sniff. This suggests a high right atrial pressure of 15 mm Hg. Pericardium/ Pleura There is no pericardial effusion. MMode/2D Measurements & Calculations LVIDd: 5.4 cm LVOT diam: 2.2 cm LVIDs: 4.5 cm Ao root diam: 3.2 cm FS: 16.0 % asc Aorta Diam: 3.5 cm EPSS: 1.2 cm IVSd: 1.3 cm LVPWd: 1.1 cm LV dick. diameter/BSA (cm/m^2): 2.5 LV sys. diameter/BSA (cm/m^2): 2.1 LA A2 area: 26.4 cm2 RA long axis: 4.7 cm LA A4 area: 28.8 cm2 RA area: 14.4 cm2 LA length (vol): 6.7 cm RA vol: 37.9 ml LA vol: 96.1 ml RA : 17.3 ml/m2 LA vol index: 44.0 ml/m2 IVC diam: 2.7 cm RVD1 (basal): 4.3 cm RVD2 (mid): 3.2 cm TAPSE: 1.4 cm Doppler Measurements & Calculations Ao V2 max: 112.7 cm/sec LVOT Max Antonino: 66.2 cm/sec Ao V2 mean: 80.5 cm/sec LV V1 max P.8 mmHg Ao max P.1 mmHg LV V1 VTI: 11.4 cm Ao mean P.9 mmHg JODIE(I,D): 2.0 cm2 Ao V2 VTI: 21.3 cm JODIE(V,D): 2.2 cm2 sev ratio: 0.54 JODIE indexed to BSA (cm^2/m^2): 0.90 Med Peak E' Antonino: 5.7 cm/sec TR max antonino: 282.5 cm/sec Lat Peak E' Antonino: 6.8 cm/sec TR max P.0 mmHg MVA(VTI): 2.4 cm2 PA V2 max: 65.2 cm/sec MR ERO: 0.14 cm2 PA V2 mean: 45.4 cm/sec PA mean P.94 mmHg PA Accel Time: 0.06 sec MV V2 mean: 49.2 cm/sec MR VTI: 120.1 cm MV mean P.3 mmHg MV V2 VTI: 17.5 cm MR PISA: 1.3 cm2 SV(LVOT): 41.8 ml MR flow rate: 56.6 cm3/sec MR PISA radius: 0.46 cm Reading Physician:04:12 PM
[2020-03-03] MEDS: FUROSEMIDE 40 MG/4 ML VIAL IV (17:39)
[2020-03-03] MEDS: SENNOSIDES 8.6 MG TABLET 17.2 MG PO (20:59)
[2020-03-03] MEDS: FUROSEMIDE 20 MG/2 ML VIAL IV (21:00)
[2020-03-04] VITALS (13 sets, daily range): BP systolic 109–130; BP diastolic 53–72; PULSE 96–117; RESP 16–19; TEMP 36.1–36.7; O2SAT 91–94
[2020-03-04] MEDS: METOPROLOL IR 50 MG TABLET PO ×4 (00:40→17:36)
--- NOTE | 2020-03-04 06:35 | PC.NURSE ---
Outsole Rounder Note-Patient remains in Afib RVR, mostly 90s-110, will go up to 130s briefly while ambulating, PO metoprolol given Q6h as ordered. Mild shortness of breath with audible wheezes, SpO2 >90% on 3L NC.
[2020-03-04] MEDS: SODIUM CHLORIDE 0.9% FLUSH 10 ML IV ×2 (08:28→14:04)
[2020-03-04] MEDS: FUROSEMIDE 20 MG/2 ML VIAL IV ×2 (08:28→18:13)
[2020-03-04] MEDS: ENOXAPARIN 40 MG/0.4 ML SYRINGE SUBCUT (08:30)
[2020-03-04] MEDS: ASPIRIN EC 81 MG TABLET PO (08:31)
[2020-03-04] MEDS: MULTIVITAMIN 1 TABLET 1 TAB PO (08:32)
[2020-03-04] MEDS: RIVAROXABAN 10 MG TABLET 20 MG PO (08:32)
[2020-03-04] MEDS: CEFTRIAXONE 2 GM/50 ML FROZ.PIGGY IV (11:58)
--- NOTE | 2020-03-04 13:53 | PC.NURSE ---
Addendum entered by Carlita Gonzalez R.N. 03/04/20 14:11: Decreased O2 to 1L NC. pt O2 sat 94-97% Original Note: AM shift note. pt AO and receptive to care. IND in the room and calling appropriately. Lungs clear with anterior right base diminished. Oxygen titrated from 3L to 1.5L NC throughout shift. pt reporting improvement with SOB and denying chest heaviness today in comparison from yesterday. Tele: Afib, RVR, 120's. New to Xarelto (started this morning). Infusing intermittent ABX and tolerating well.
[2020-03-04] MEDS: AZITHROMYCIN 500 MG in DEXTROSE 5% IN WATER 250 ML IV (14:04)
[2020-03-04] MEDS: DOCUSATE 100 MG CAPSULE PO (20:12)
[2020-03-04] MEDS: SENNOSIDES 8.6 MG TABLET 17.2 MG PO (20:12)
[2020-03-05] VITALS (17 sets, daily range): BP systolic 101–127; BP diastolic 46–89; PULSE 82–114; RESP 16–20; TEMP 36.1–37.1; O2SAT 86–97
[2020-03-05] MEDS: METOPROLOL IR 50 MG TABLET PO ×3 (00:16→12:08)
[2020-03-05 06:27] LABS: BUN Creatinine Ratio 27.7 (6-22); Blood Urea Nitrogen 48 mg/dL (9-20); Calcium 9.2 mg/dL (8.4-10.2); Carbon Dioxide 29 mmol/L (22-32); Chloride 97 mmol/L (98-107); Estimated Glomerular Filt Rate 38.4 mL/min (>60); Glucose 126 mg/dL (80-110); HEMOLYSIS < 15 (0-50); Potassium 3.9 mmol/L (3.4-5.1); Sodium 134 mmol/L (137-145)
[2020-03-05] MEDS: ENOXAPARIN 40 MG/0.4 ML SYRINGE SUBCUT (09:23)
[2020-03-05] MEDS: ASPIRIN EC 81 MG TABLET PO (09:23)
[2020-03-05] MEDS: RIVAROXABAN 10 MG TABLET 20 MG PO (09:23)
[2020-03-05] MEDS: MULTIVITAMIN 1 TABLET 1 TAB PO (09:23)
[2020-03-05] MEDS: DIGOXIN 500 MCG/2 ML AMPUL IV (10:26)
[2020-03-05] MEDS: SODIUM CHLORIDE 0.9% FLUSH 10 ML IV (10:27)
--- NOTE | 2020-03-05 12:51 | PC.NURSE ---
Addendum entered by Carlita Gonzalez R.N. 03/05/20 12:55: L wrist PIV compromised during lunch and removed, pt tolerated well. While trying to place new PIV, counter professional came into room and asked for time with patient. ABX on hold until new PIV placed. Left wrist placed in warm blanket and encouraged pt to elevate. Original Note: AM shift note. pt AO and receptive to care. Up in room IND and telling staff when he voids and has a BM. Tele: Afib, BBB, and tachy. Dr. Frausto starting new cardiac medications and DC'ed lasix. Administered 500mcg IV Digoxin this AM and pt tolerated well. pt denying pain and reporting mild SOB with activity, although he states it has improved. Currently on 1.5L NC and satting ~94%. Lungs clear and diminished. Dr. Frausto would like to have an O2 test performed during ambulation but needs heart rate <100. pt HR usually in 110's and will monitor in hopes to test this shift.
[2020-03-05] MEDS: CEFTRIAXONE 2 GM/50 ML FROZ.PIGGY IV (14:46)
--- NOTE | 2020-03-05 15:09 | DIET.PN ---
Dietary Progress Note Assessment: 80y M admitted for progressive SOB during bicycle ride found to have hypoxic respiratory failure, double pneumonia, and echo showing 20% ejection fraction referred to nutrition for weight loss consultation. HT: 165.1cm WT: 112.9kg UBW: 120kg BMI: 41.4 Labs: CRP 6.5 H, NTProBNP 2290 H, Cr 1.73 H, eGFR 38.4 L Pt reports getting weight loss education from his PCP to follow 1500 kcal diet and exercise daily. Pt reports having lost 15# since then, he reports weight loss is stepwise and if he doesn't watch his diet he can easily gain weight. Pt inquires about meal plans. Usual Day: B: 1 or 2 eggs c toast, coffee L: half sandwich c soup, water D: smaller portions than before, no evening snacking Physical Activity: was walking 5mi c pet dog (maltipoo) but now rides bicycles same route c neighbors daily from 10-11am if no rain. Pt enjoys flying model planes and sailing model boats as leisure activity. Nutrition Diagnosis: Resolving morbid obesity r/t past overconsumption of calories and physical inactivity aeb pt would snack in evenings, have largest meal at dinner, was not intentionally exercising, now on 1500kcal diet c daily activity and has lost 15# with plans for further weight reduction. Interventions: 1. Encouraged pts continued weight loss through smaller portion sizes, maintaining current physical activity. Discussed importance of preserving LBM and losing fat mass around belly. 2. To address pts question on meal plans, directed pt to [employer] which has RD curated 1500kcal meal plans which are approachable and relatively easy to execute. Diet Order: HH EER: 1500 kcal (weight reduction), 110g PRO (1g/kg per elder)
--- NOTE | 2020-03-05 15:17 | P.CONS_ITS ---
History of Present Illness Consult details Date Patient Seen: 03/05/20 Time Patient Seen: 12:17 Chief complaint: congestion,cough,shortness of breath,heart rate up Reason for consult: New onset atrial fibrillation with CHF Requesting provider: Jessa Frausto Narrative: The patient is a 72-year-old male with a longstanding history of hypertension, treated with atenolol, spironolactone, amlodipine, losartan, and chlorthalidone and known left bundle branch block, and untreated obstructive sleep apnea who had a negative perfusion imaging study in December 2017 with only a small fixed inferoapical defect and normal ejection fraction of 62% but no other cardiac history until he presented to the ED on 03/02/2020 with a 2 week history of progressive exertional dyspnea and cough with respirophasic chest pressure. He describes this as being similar to an episode around 1 month ago when doing woodworking that he attributed to environmental factors and resolved. On the day of admission he was noted to have a fever to 100? and in the emergency department was found to have atrial fibrillation at 124 bpm with a creatinine of 1.5 and a white count of 17.4. His CK and troponin were normal with a normal potassium of 4.2 but had a proBNP of 2290. He was mildly hypoxic with right > left bilateral pulmonary infiltrates. He was treated with antibiotics for presumed pneumonia was started on metoprolol for atrial f ibrillation. His dyspnea improved but he remained hypoxic, especially at night with heart rates in the 90 to 110 range, despite escalating doses of metoprolol. He was diuresed and his blood pressure medications were held. With this, he has had a 2 L diuresis and feels that his breathing has substantially improved but still is not back to his baseline and continues to note some mild symptoms of orthopnea and occasional respirophasic chest tightness. His echocardiogram from yesterday showed borderline left ventricular enlargement with an ejection fraction of 20 to 30% with global hypokinesis without any focal wall motion abnormalities. There is moderate mitral regurgitation but no other valvular abnormalities and PAP was estimated at 47 mmHg with a CVP of 15 mm Hg and those images are personally reviewed. He continues to deny any sense of palpitations or irregular heartbeat although reports home blood heart rates in the 120 to 160 range prior to admission. He has had no sense of any lightheadedness and denies any resting dyspnea. He has had intermittent pedal edema over the last 20 years but does believe that it is slightly worsened over the last month. She he was apparently diagnosed with obstructive sleep apnea around 5 years ago and was tried on BiPAP but was intolerant and thus he banded this Is cardiac risk factors include his longstanding history of hypertension which has been fairly well controlled as well as borderline hyperlipidemia with previous intolerance to atorvastatin. He denies any diabetes. His family history is notable only for a mother who had CHF in her 70s and in her 90s. He smoked 1 to 2 packs per day for 15 years but stopped in 1979. 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 His review of systems is notable for the absence of any hemoptysis or peptic ulcer disease. He has had no urinary complaints and no history of stroke or TIA type symptoms. Meds Home Medications and Allergies Home Medications Medication Instructions Recorded Confirmed Type losartan [Cozaar] 50 mg PO BID 04/14/19 03/02/20 History spironolactone [Aldactone] 25 mg PO DAILY 04/14/19 03/02/20 History amlodipine 10 mg PO BEDTIME 03/02/20 03/02/20 History aspirin 81 mg PO BEDTIME 03/02/20 03/02/20 History atenolol-chlorthalidone 1 tab PO DAILY 03/02/20 03/02/20 History cholecalciferol (vitamin D3) 50 mcg PO DAILY 03/02/20 03/02/20 History [Vitamin D3] metronidazole 1 applic TOPICAL DAILY PRN 03/02/20 03/02/20 History lkqzyekuacxj-kxuioxmo-vekgdt 2 tab PO DAILY 03/02/20 03/02/20 History [Mature Adult Century] Allergies Allergy/AdvReac Type Severity Reaction Status Date / Time atorvastatin [From Lipitor] AdvReac Mild Verified 03/02/20 10:24 amitriptyline AdvReac Verified 03/02/20 14:20 Review of Systems Review of Systems Narrative: Complete review is performed and is negative except as above Exam Vital Signs (past 8 hours): - 03/05/20 07:20 03/05/20 08:17 03/05/20 09:32 Temperature 97.0 F L Pulse Rate 111 H 103 H Respiratory Rate 18 16 Blood Pressure 116/89 Pulse Oximetry 93 94 93 03/05/20 10:26 03/05/20 11:11 03/05/20 13:01 Temperature 96.9 F L Pulse Rate 114 H 112 H Respiratory Rate 16 Blood Pressure 127/71 Pulse Oximetry 97 94 Oxygen Delivery Method Nasal Cannula Oxygen Flow Rate 1.5 Narrative Exam Narrative: Pleasant, severely obese middle-aged white male in no distress Skin: Warm and dry HEENT: EOMI without arcus Lungs: Clear bilaterally to auscultation and percussion without any appreciable rales or wheeze CV: Nonpalpable PMI with an irregularly irregular rhythm with distant heart tones but no appreciable murmurs or gallops. JVP is likely 6 to 7 cm without any obvious hepatic jugular reflux. Carotid pulses are 2+ bilaterally with a normal upstroke and no bruit. Dorsalis pedis pulses nonpalpable right 2+ the left and posterior tibial pulses are nonpalpable. Abdomen: Moderately obese but nondistended nontender without any palpable masses or hepatosplenomegaly. Extremities: Warm with 1+ bilateral pitting edema. Neuro: Grossly nonfocal and moves all 4 extremities. Psych: Awake, alert, and appropriate Objective ECG Impression: From admission shows atrial fibrillation at 119 beats per minute with an LBBB Labs Result Diagrams: 03/03/20 05:00 03/05/20 05:43 Labs: Laboratory Results - last 24 hr 03/05/20 05:43 Sodium 134 L Potassium 3.9 Chloride 97 L Carbon Dioxide 29 BUN 48 H Creatinine 1.73 H Estimated GFR 38.4 L BUN/Creatinine Ratio 27.7 H Glucose 126 H Calcium 9.2 Assessment & Plan Assessment & Plan narrative: 1. Newly discovered atrial fibrillation with associated severe cardiomyopathy and CHF. I suspect that he has a tachycardia mediated cardiomyopathy from his recent atrial fibrillation although alternative explanations should be considered, including a LBBB cardiomyopathy. At this point, he continues to appear to be somewhat volume overloaded and I would continue with gentle diuresis although with close observation of his creatinine which has increased to 1.7. Rate control is imperative and I would increase his metoprolol from 50 mg q.6 hours to 75 mg q.6 hours with the addition of digoxin loading of 1.0 mg over 24 hours with subsequent undergoing dosing, likely at 0.125 mg daily given his renal insufficiency but will need to be adjusted according to his renal function. At the time of discharge, his metoprolol can be consolidated into b.i.d. dosing and I would recommend obtaining a digoxin level in 2 to 3 days after establishing a regular digoxin dose. If rate control remains challenging, one could consider using amiodarone for rate control. We discussed the importance of anticoagulation for thromboembolism prophylaxis and he has been started on Eliquis which should be continued. Once adequate heart rate control has been achieved, he can be discharged on anticoagulation with follow-up in 2 to 3 weeks and if he is not converted to sinus rhythm, outpatient cardioversion can be arranged. If his heart failure remains refractory, he may require ERIN and cardioversion sooner. Following this, I would reassess his LV systolic function and if it has not normalized, then an ischemic evaluation with a pharmacologic perfusion study should be pursued although I think the like lihood of an ischemic cardiomyopathy is low given the absence of any enzyme release despite relatively rapid heart rate. In addition, consideration for resynchronization therapy with a biventricular pacemaker should be considered if he continues to have LBBB and reduced LV systolic function. I suspect he has significant sleep apnea on the basis of his history and symptoms and he is now amenable to retry CPAP therapy and this should be arranged. 2. Hypertension. I would restart amlodipine as needed to control his blood pressure, reserving spironolactone and losartan if she remains refractory but with close observation of his renal function. 3. Borderline hyperlipidemia. This should be checked in 2 to 3 months. 4. Obstructive sleep apnea. As above. 5. Acute on chronic renal insufficiency. He should have close observation of electrolytes renal function with further diuresis. His potassium should be maintained greater than 4.0 and magnesium greater than 2.0. Recommendation: 1. Gently increase metoprolol, consolidating into b.i.d. dosing at the time of discharge. 2. Load with digoxin with low-dose continued dosing, as needed, for heart rate control, check a digoxin level in 2 to 3 days. 3. Gentle diuresis with close observation of electrolytes and renal function. 4. Once adequate heart rate control has been achieved he can be discharged on anticoagulation with outpatient follow-up in 2 to 3 weeks for consideration of outpatient cardioversion. 5. Arrange for a sleep study and CPAP therapy, as needed. Time Spent With Patient Time with patient: Greater than 35 minutes (1 hour 55 minutes)
--- NOTE | 2020-03-05 15:47 | CM.DPC ---
DCP: continued: case discussed in Team Rounds. Dr. Frausto stated web user experience strategist Dr. Evans would see pt today and make recommendations for POC. P: at this point remains as stated prior: home when stable for that setting.
[2020-03-05] MEDS: AZITHROMYCIN 500 MG in DEXTROSE 5% IN WATER 250 ML IV (15:53)
[2020-03-05] MEDS: FUROSEMIDE 20 MG/2 ML VIAL IV (16:58)
--- NOTE | 2020-03-05 17:27 | P.PN_ITS ---
Subjective Subjective Date Patient Seen: 03/05/20 Interval history: The patient is a 80-year-old male who was admitted to the hospital for exertional dyspnea. Chest x-ray confirmed bibasilar infiltrates. Patient initially had an elevated white count which has improved with antibiotic therapy. In addition he was found to have significant congestive heart failure. His ejection fraction is 20-25%. He also has atrial fibrillation with a rapid ventricular response rate. Patient continues to be short of breath. He also notes shortness of breath with minimal activity. He has had no further chest pain since admission. He remains hypoxic requiring 2 L of oxygen to maintain a saturation of 93%. Exam Vital Signs (past 8 hours): - 03/05/20 09:32 03/05/20 10:26 03/05/20 11:11 Temperature 96.9 F L Pulse Rate 114 H 112 H Respiratory Rate 16 Blood Pressure 127/71 Pulse Oximetry 93 97 03/05/20 13:01 03/05/20 15:45 Temperature 97.5 F L Pulse Rate 97 H Respiratory Rate 18 Blood Pressure 124/58 L Pulse Oximetry 94 93 Oxygen Delivery Method Nasal Cannula Oxygen Flow Rate 2 Narrative Exam Narrative: Pleasant gentleman in no obvious distress Lungs: Decreased breath sounds with occasional scattered crackle Cardiac exam irregularly irregular normal S1-S2 with a 2/6 systolic ejection murmur Abdomen: Obese protuberant, nontender nondistended Extremity: Trace edema bilaterally Skin exam: No lesion Psychiatric exam: No confusion, orient inappropriate Objective Labs Result Diagrams: 03/03/20 05:00 03/05/20 05:43 Labs: Laboratory Results - last 24 hr 03/05/20 05:43 Sodium 134 L Potassium 3.9 Chloride 97 L Carbon Dioxide 29 BUN 48 H Creatinine 1.73 H Estimated GFR 38.4 L BUN/Creatinine Ratio 27.7 H Glucose 126 H Calcium 9.2 PFSH Medical History Adenomatous polyp Hypertension Melanoma Obesity JOHN (obstructive sleep apnea) Surgical History History of cataract surgery Family History (Updated 03/02/20 @ 15:58 by Jessa Frausto MD) Mother Congestive heart failure Social History household members: spouse Smoking Status: Former smoker Assessment & Plan Assessment & Plan narrative: Acute hypoxic respiratory failure -patient has acute systolic heart failure, echocardiogram confirmed ejection fraction of 20% -patient currently receiving IV Lasix, elevation of creatinine noted likely related to diuresis -patient appears to continue to be in congestive heart failure with some vo lume overload -appreciate cardiology consultation. Will continue with gentle diuresis 2. 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 Paroxysmal atrial fibrillation -heart rate still elevated, despite metoprolol 50 Q 6 -will increase metoprolol to 75 q.6, and continue digoxin, if no improvement consider loading with amiodarone per Cardiology recommendation -continue Xarelto 20 q.day 4. Community-acquired pneumonia -continue azithromycin and ceftriaxone -will switch to oral antibiotics at discharge 5. Obstructive sleep apnea -patient not on BiPAP or CPAP -agree with outpatient sleep study as this is likely contributing and worsening heart failure 6. Obesity -likely contributing to obstructive sleep apnea and heart failure Discharge home once the patient is little no longer hypoxic in respiratory function is back to baseline
[2020-03-05] MEDS: DIGOXIN 500 MCG/2 ML AMPUL 250 MCG IV (17:51)
[2020-03-05] MEDS: METOPROLOL IR 25 MG TABLET 75 MG PO (17:51)
[2020-03-05] MEDS: SENNOSIDES 8.6 MG TABLET 17.2 MG PO (21:06)
[2020-03-05] MEDS: DOCUSATE 100 MG CAPSULE PO (21:06)
[2020-03-06] MEDS: METOPROLOL IR 25 MG TABLET 75 MG PO ×2 (00:27→05:40)
[2020-03-06 02:22] VITALS: O2SAT 93
[2020-03-06 03:00] VITALS: BP 136/76; PULSE 97; RESP 18; TEMP 36.9; O2SAT 93
[2020-03-06 05:00] VITALS: O2SAT 93
[2020-03-06 06:42] LABS: Carbon Dioxide 30 mmol/L (22-32); Chloride 97 mmol/L (98-107); HEMOLYSIS < 15 (0-50); Magnesium 1.9 mg/dL (1.6-2.3); Sodium 133 mmol/L (137-145)
[2020-03-06 06:45] LABS: BUN Creatinine Ratio 29.3 (6-22); Blood Urea Nitrogen 43 mg/dL (9-20); Calcium 9.1 mg/dL (8.4-10.2); Carbon Dioxide 29 mmol/L (22-32); Chloride 97 mmol/L (98-107); Estimated Glomerular Filt Rate 46.3 mL/min (>60); Glucose 122 mg/dL (80-110); HEMOLYSIS < 15 (0-50); Potassium 3.7 mmol/L (3.4-5.1); Sodium 134 mmol/L (137-145)
[2020-03-06 07:25] VITALS: BP 125/63; PULSE 109; RESP 16; TEMP 36.1; O2SAT 93
[2020-03-06 08:25] VITALS: O2SAT 95
[2020-03-06 08:35] VITALS: PULSE 98; RESP 16; O2SAT 93
[2020-03-06] MEDS: ASPIRIN EC 81 MG TABLET PO (09:12)
[2020-03-06] MEDS: MULTIVITAMIN 1 TABLET 1 TAB PO (09:12)
[2020-03-06] MEDS: DOCUSATE 100 MG CAPSULE PO (09:12)
[2020-03-06] MEDS: FUROSEMIDE 20 MG/2 ML VIAL 40 MG IV (09:19)
[2020-03-06] MEDS: RIVAROXABAN 10 MG TABLET 20 MG PO (09:20)
--- NOTE | 2020-03-06 10:29 | P.DS_ITS ---
History of Present Illness History of Present Illness Date Patient Seen: 03/06/20 Time Patient Seen: 10:29 Chief complaint: congestion,cough,shortness of breath,heart rate up Narrative: As per Dr. Frausto, The patient is a 80-year-old male with a history of hypertension, obesity, obstructive sleep apnea who presents with chief complaint of shortness of breath, fever, cough and exertional dyspnea. Patient reports his symptoms began a month ago. At that time he noted being short of breath with minimal activity. He actually likes to stand for some wood working at home. He thought it was related to that and the symptoms resolved. The patient likes to bike regularly when the weather permits and noticed recently that he was unable to keep up because of his shortness of breath. He also noted over the past few days a dry nonproductive cough. Patient took his temperature where it was 100?. He called his PCP's office and was referred to the hospital for evaluation. In the hospital the patient did have a COVID test which was negative. His respiratory viral panel is negative as well. The patient does report intermittent palpitations. He describes orthopnea. He has occasional lower extremity edema. Patient reports his weight has fluctuated by 20 lb with minimal activity. He also reports chest discomfort which has been recent with his current symptoms. He describes chest pressure which is midsternal nonradiating that appears to be worse when lying flat. His symptoms appear to be better when leaning forward. He denies any radiation, any associated nausea, no diaphoresis. The patient is hypertensive, has borderline hyperlipidemia, overweight, but no history of cardiac disease. He does report a history of stress test 2 years ago which was negative. The patient was evaluated in the emergency room. His white count was elevated at 18.9. Chest x-ray suggest a bilateral interstitial infiltrates. Patient is admitted to the hospital for treatment and evaluation of community- acquired pneumonia. Discharge Providers Provider Date of admission: 03/02/20 12:17 Discharge Date: 03/06/20 Primary care physician: Ji Sauer MD Consults: 03/02/20 16:08 Consult to Dietitian, Adult Routine Comment: weight loss consultation Reason For Exam: weight loss 03/03/20 08:41 Consult to Respiratory Therapy Evaluate & Treat Comment: Physician Instructions: Evaluate and treat Discharge provider: Rui Rashid DO Summary Hospital Course Discharge Diagnosis: 1. Acute hypoxic respiratory failure, resolved 2. Acute systolic heart failure 3. Paroxysmal atrial fibrillation, with RVR 4. Community-acquired pneumonia, present on admission 5. Obstructive sleep apnea, chronic 6. Obesity, BMI 41.4, present on admission Hospital Course: 80 year old male admitted with acute hypoxemic respiratory fa ilure secondary to acute systolic heart failure, afib with RVR and a possible community acquired penumonia. He was gently diuresed and metoprolol was increased. Digoxin loading was given. After digoxin patient converted to normal sinus rhythm. He had been anticoagulated since admission. He remained in normal sinus rhythm, and after gentle diuresis he was able to be weaned off supplemental oxygen. He was discharged on digoxin 125 mcg daily with a plan for outpatient digoxin level in 2 days which was ordered. He was discharged on beta duncan and arb therapy, as well as lasix at 40 mg daily and on xarelto. I asked him to follow up with his PMD to go over digoxin results, he can call the cardio logy clinic for outpatient follow up as well. He was not discharged on further antibiotics as he had sufficiently completed antibiotic therapy as an inpatient. Time Spent with Patient Time spent: Greater than 30 minutes Exam Vital Signs (past 8 hours): - 03/06/20 03:00 03/06/20 05:00 03/06/20 07:25 Temperature 98.4 F 97.0 F L Pulse Rate 97 H 109 H Respiratory Rate 18 16 Blood Pressure 136/76 125/63 Pulse Oximetry 93 93 93 03/06/20 08:25 03/06/20 08:35 Temperature Pulse Rate 98 H Respiratory Rate 16 Blood Pressure Pulse Oximetry 95 93 Oxygen Delivery Method Room Air Oxygen Flow Rate 0 Narrative Exam Narrative: Gen: Pleasant gentleman in no obvious distress Lungs: Decreased breath sounds bilaterally, minimal crackles, no wheezing, rhonchi, or rales. Cardiac: RRR normal S1-S2 with a 2/6 systolic ejection murmur Abdomen: Obese protuberant, nontender nondistended Extremity: Trace edema bilaterally Skin exam: No lesion Psychiatric exam: No confusion, orient inappropriate Objective Labs Result Diagrams: 03/03/20 05:00 03/06/20 05:35 Labs: Laboratory Results - last 24 hr 03/06/20 03/06/20 05:35 05:35 Sodium 133 L 134 L Potassium 4.0 3.7 Chloride 97 L 97 L Carbon Dioxide 30 29 BUN 43 H Creatinine 1.47 H Estimated GFR 46.3 L BUN/Creatinine Ratio 29.3 H Glucose 122 H Calcium 9.1 Magnesium 1.9 PFSH Medical History Adenomatous polyp Hypertension Melanoma Obesity JOHN (obstructive sleep apnea) Surgical History History of cataract surgery Family History Mother Congestive heart failure Social History household members: spouse Smoking Status: Former smoker Discharge Plan Discharge Plan Patient Disposition: Home Provider Discharge Comment: You were admitted to the hospital with possible pneumonia and atrial fibrillation. Your heart function was reduced, this may be due to the atrial fibrillation. You should follow up with the cardiology group. Please obtain a digoxin level and another lab on 03/08, this has been ordered for you. Please follow up with your PCP as soon as possible to go over this hospitalization and check labs and medications. Discharge orders & Medications Prescriptions: New Xarelto 15 mg tablet 15 mg PO DAILY 30 Days Qty: 30 RF: 0 metoprolol succinate 100 mg tablet extended release 24 hr 150 mg PO BID 30 Days Qty: 90 RF: 0 digoxin 125 mcg (0.125 mg) tablet 125 mcg PO DAILY 30 Days Qty: 30 RF: 0 furosemide 40 mg tablet 40 mg PO DAILY 30 Days Qty: 30 RF: 0 losartan 25 mg tablet 25 mg PO DAILY 30 Days Qty: 30 RF: 0 Continued aspirin 81 mg Capsule,Delayed Release(Dr/Ec) 81 mg PO BEDTIME RF: 0 cholecalciferol (vitamin D3) [Vitamin D3] 50 mcg (2,000 unit) Capsule 50 mcg PO DAILY RF: 0 Discontinued losartan [Cozaar] 50 mg Tablet 50 mg PO BID RF: 0 spironolactone [Aldactone] 25 mg Tablet 25 mg PO DAILY RF: 0 atenolol-chlorthalidone 50-25 mg Tablet 1 tab PO DAILY RF: 0 amlodipine 10 mg Tablet 10 mg PO BEDTIME RF: 0 Mature Adult Century Tablet 2 tab PO DAILY RF: 0 metronidazole 1 % Gel 1 applic TOPICAL DAILY PRN (Reason: Rash) RF: 0 Other Ambulatory Orders: Basic Metabolic Panel (Routine) Timeframe: 2 Days Facility: [facility] - Location: Laboratory Ordered By: Rui Rashid Digoxin (Routine) Timeframe: 2 Days Facility: [facility] - Location: Laboratory Ordered By: Rui Rashid Follow up/Referrals: Ji Sauer MD [Primary Care Provider] - Lauri Evans MD [Physician] - 2 Weeks (Seen during hospitalization for afib, new HF possibly tachyarrythmia induced.) Diet/Activity/Treatments Diet: Diet as Tolerated and Low-sodium Activity: As tolerated Visit Report/Discharge Packet Instructions: Pneumonia-Adult, Atrial Fibrillation, DI for Heart Failure, Rivaroxaban, Digoxin, Metoprolol Discharge Data Primary Care Provider: Ji Sauer
--- NOTE | 2020-03-06 11:27 | PC.NURSE ---
Patients breath sounds clear, he is on RA, and will be discharging at 1230.
[2020-03-06] MEDS: DIGOXIN 0.125 MG TABLET PO (11:46)
[2020-03-06] MEDS: CEFTRIAXONE 2 GM/50 ML FROZ.PIGGY IV (11:46)
--- NOTE | 2020-03-06 12:40 | P.PN_ITS ---
Subjective Subjective Date Patient Seen: 03/06/20 Time Patient Seen: 12:45 Interval history: 80 year old male admitted with atrial fibrillation with RVR and systolic heart failure. He reports a significant improvement in SOB since admission. He was able to ambulate without any significant SOB. Exam Vital Signs (past 8 hours): - 03/06/20 05:00 03/06/20 07:25 03/06/20 08:25 Temperature 97.0 F L Pulse Rate 109 H Respiratory Rate 16 Blood Pressure 125/63 Pulse Oximetry 93 93 95 03/06/20 08:35 Temperature Pulse Rate 98 H Respiratory Rate 16 Blood Pressure Pulse Oximetry 93 Oxygen Delivery Method Room Air Oxygen Flow Rate 0 Const General: comfortable, well developed and well groomed Orientation: alert, awake and oriented x3 Neck Neck: JVD Carotids: normal carotid upstroke Resp Effort & Inspection: normal respiratory effort Auscultation: clear to auscultation bilaterally Cardio Palpation: normal PMI Rate: regular rate Rhythm: abnormal rhythm irregularly irregular Heart Sounds: S1 normal and S2 normal Pulses: normal peripheral pulses Extrem General: no pedal edema Objective Labs Result Diagrams: 03/03/20 05:00 03/06/20 05:35 Labs: Laboratory Results - last 24 hr 03/06/20 03/06/20 05:35 05:35 Sodium 133 L 134 L Potassium 4.0 3.7 Chloride 97 L 97 L Carbon Dioxide 30 29 BUN 43 H Creatinine 1.47 H Estimated GFR 46.3 L BUN/Creatinine Ratio 29.3 H Glucose 122 H Calcium 9.1 Magnesium 1.9 PFSH Medical History Adenomatous polyp Hypertension Melanoma Obesity JOHN (obstructive sleep apnea) Surgical History History of cataract surgery Family History Mother Congestive heart failure Social History household members: spouse Smoking Status: Former smoker Assessment & Plan Assessment & Plan narrative: 1. Atrial fibrillation with controlled ventricular rate. Heart rate is fairly well controlled. Continue digoxin 1125 mcg daily Continue metoprolol succ 150 BID Continue Xarelto 15 mg daily 2. Systolic heart failure. No evidence of volume overload on physical exam today. 1. Continue losartan 25 mg daily 2. Continue furosemide 40 mg daily 3. Cardiomyopathy. EF 20-30%. Suspect reduced heart function is secondary to atrial fibrillation with RVR. See above We will re evaluate his heart function in 3 months after optimal medical therapy 4. He scheduled to follow up with [facility] on Thursday March 19, 2020 at 9:40AM
== END 2020-03-06 13:00 | disposition home or self-care (01) | DRG 291 ==
LOC: ED 12:12 → AC 12:18
PROVIDERS: Admitting Provider Internal Medicine; Emergency Provider Nurse Practitioner Family; PCP Internal Medicine; Referring Provider Nurse Practitioner Family; Visit Provider Internal Medicine
DX: I11.0 Hypertensive heart disease with heart failure (principal); J18.9 Pneumonia, unspecified organism; J96.01 Acute respiratory failure with hypoxia; I50.21 Acute systolic (congestive) heart failure; Z68.41 Body mass index [BMI] 40.0-44.9, adult; I48.0 Paroxysmal atrial fibrillation; Z79.01 Long term (current) use of anticoagulants; G47.33 Obstructive sleep apnea (adult) (pediatric); E66.9 Obesity, unspecified; I42.8 Other cardiomyopathies; I44.7 Left bundle-branch block, unspecified; Z87.891 Personal history of nicotine dependence; Z20.822 Contact with and (suspected) exposure to COVID-19
CPT/HCPCS: 36415; 71045; 80048; 80051; 80053; 82550; 82728; 83605; 83615; 83690; 83735; 83880; 84145; 84443; 84484; 85025; 85379; 85610; 85730; 86140; 87040; 87633; 87635; 93005; 93306; 94760; 94762; 96361; 96365; 96367; 99284; J0696; J1160; J1650; J1940; Q9957

== ENCOUNTER → 2020-03-08 15:17 | Outpatient (ROUT) | payer MEDICARE, SELFPAY ==
[2020-03-02 13:52] VITALS: BMI 42.1
[2020-03-08 15:39] LABS: Add Manual Diff / Slide Review NO; Basophils Absolute Auto 100 /uL (0-100); Basophils Percent Auto 0.6 % (0-2); Eosinophils Absolute Auto 100 /uL (0-450); Eosinophils Percent Auto 0.3 % (2-4); Hematocrit 34.3 % (41-53); Hemoglobin 11.4 g/dL (13.5-17.5); Lymphocytes Absolute Auto 1800 /uL (1100-4500); Lymphocytes Percent Auto 8.7 % (25-40); Mean Corpuscular HGB Conc 33.2 % (30-36); Mean Corpuscular Hemoglobin 28.2 PG (26-34); Mean Corpuscular Volume 85.1 fL (80-100); Monocytes Absolute Auto 2300 /uL (0-900); Monocytes Percent Auto 11.1 % (3-14); Neutrophils Absolute Auto 16400 /uL (1500-7000); Neutrophils Percent Auto 79.3 % (50-75); Platelet Count 454 X10^3/uL (150-400); Red Blood Cell Count 4.03 X10^6/uL (4.5-5.9); Red Cell Distribution Width 13.9 % (11.6-14.8); White Blood Cell Count 20.6 X10^3/uL (4.5-11.0)
[2020-03-08 15:47] LABS: Digoxin 0.8 ng/mL (0.8-2.0)
[2020-03-08 15:56] LABS: BUN Creatinine Ratio 24.2 (6-22); Blood Urea Nitrogen 32 mg/dL (9-20); Calcium 9.1 mg/dL (8.4-10.2); Carbon Dioxide 33 mmol/L (22-32); Chloride 94 mmol/L (98-107); Estimated Glomerular Filt Rate 52.5 mL/min (>60); Glucose 140 mg/dL (80-110); HEMOLYSIS < 15 (0-50); Potassium 3.9 mmol/L (3.4-5.1); Sodium 134 mmol/L (137-145)
== END ==
PROVIDERS: PCP Internal Medicine; Visit Provider Internal Medicine
DX: I48.91 Unspecified atrial fibrillation (principal); I50.21 Acute systolic (congestive) heart failure; D72.829 Elevated white blood cell count, unspecified
CPT/HCPCS: 80048; 80162; 85025

== ENCOUNTER → 2020-03-15 13:17 | Outpatient (CLI) | payer MEDICARE, SELFPAY ==
[2020-03-02 13:52] VITALS: BMI 42.1
[2020-03-15 16:05] LABS: Digoxin 0.7 ng/mL (0.8-2.0)
[2020-03-15 16:16] LABS: BUN Creatinine Ratio 20.7 (6-22); Blood Urea Nitrogen 24 mg/dL (9-20); Calcium 8.9 mg/dL (8.4-10.2); Carbon Dioxide 33 mmol/L (22-32); Chloride 100 mmol/L (98-107); Estimated Glomerular Filt Rate > 60.0 mL/min (>60); Glucose 115 mg/dL (80-110); HEMOLYSIS < 15 (0-50); Potassium 4.2 mmol/L (3.4-5.1); Sodium 138 mmol/L (137-145)
== END ==
PROVIDERS: PCP Internal Medicine; Referring Provider Internal Medicine; Visit Provider Internal Medicine
DX: I48.91 Unspecified atrial fibrillation (principal)
CPT/HCPCS: 36415; 80048; 80162

== ENCOUNTER → 2020-03-28 16:09 | Outpatient (CLI) | payer MEDICARE, SELFPAY ==
[2020-03-02 13:52] VITALS: BMI 42.1
== END ==
PROVIDERS: PCP Internal Medicine; Referring Provider Nurse Practitioner; Visit Provider Nurse Practitioner
DX: I42.0 Dilated cardiomyopathy (principal)
CPT/HCPCS: 36415; 80162

== ENCOUNTER 2020-04-07 10:23 | Emergency (ER) | payer MEDICARE, SELFPAY ==
[2020-03-02 13:52] VITALS: BMI 42.1
[2020-04-07] VITALS (12 sets, daily range): BP systolic 143–169; BP diastolic 64–82; PULSE 69–86; RESP 11–31; TEMP 36.9; O2SAT 95–100; BMI 39.9
--- NOTE | 2020-04-07 10:39 | DI.RAD.S_ITS ---
PROCEDURE: XR CHEST 1V INDICATIONS: chest pain TECHNIQUE: One view of the chest was acquired. COMPARISON: [facility], CR, XR CHEST 1V, 03/02/2020, 10:30. FINDINGS: Overlying EKG wires. Surgical changes and devices: None. Lungs and pleura: Mildly persistent interstitial prominence decreased from prior exam. No focal consolidation.. No pleural effusions or pneumothorax. Mediastinum: Mediastinal contours appear normal. Heart size is normal. Vascular calcifications within the aorta. Bones and chest wall: No suspicious bony lesions. Age appropriate degenerative changes. Overlying soft tissues appear unremarkable. IMPRESSION: Mildly prominent interstitium, decreased from prior examination. This may represent resolving interstitial edema versus atypical infection. No focal consolidation. Dictated by: Espinoza Naik D.O. on 04/07/2020 at 9:54 Approved by: Espinoza Naik D.O. on 04/07/2020 at 9:57
[2020-04-07 10:48] LABS: Add Manual Diff / Slide Review NO; Basophils Absolute Auto 200 /uL (0-100); Basophils Percent Auto 0.9 % (0-2); Eosinophils Absolute Auto 300 /uL (0-450); Eosinophils Percent Auto 1.9 % (2-4); Hematocrit 38.1 % (41-53); Hemoglobin 12.6 g/dL (13.5-17.5); Lymphocytes Absolute Auto 2400 /uL (1100-4500); Lymphocytes Percent Auto 13.5 % (25-40); Mean Corpuscular Hemoglobin 27.5 PG (26-34); Mean Corpuscular Volume 83.4 fL (80-100); Monocytes Absolute Auto 1500 /uL (0-900); Monocytes Percent Auto 8.5 % (3-14); Neutrophils Absolute Auto 13200 /uL (1500-7000); Neutrophils Percent Auto 75.2 % (50-75); Platelet Count 344 X10^3/uL (150-400); Red Blood Cell Count 4.57 X10^6/uL (4.5-5.9); Red Cell Distribution Width 14.5 % (11.6-14.8); White Blood Cell Count 17.5 X10^3/uL (4.5-11.0)
[2020-04-07 10:52] LABS: INR 1.6 (0.9-1.3); Prothrombin Time 18.3 SECONDS (10.1-12.7)
[2020-04-07 10:54] LABS: PTT Partial Thromboplastin Tim 38 SECONDS (26.4-36.2)
--- NOTE | 2020-04-07 10:54 | ED.GENADULT ---
HPI - General Adult General Chief complaint: Abdominal Pain Stated complaint: BAD STOMACH PAIN Time Seen by Provider: 04/07/20 10:42 Source: patient Mode of arrival: Ambulatory Limitations: no limitations History of Present Illness HPI narrative: 80-year-old male here for evaluation of upper abdominal pain. He states that he woke up this morning approximately 0400 hours with what he described as heartburn. Prior to this morning he states that he normally does not have heartburn. He has had 2 bowel movements this morning that did not change his symptoms. He also took Tums this morning. He states that he did this over 2 different episodes in the 1st episode did seem to improve his symptoms somewhat. He now states that his symptoms have changed to words now centered in the epigastric region and right upper quadrant. No urinary symptoms. No prior abdominal surgeries. Does have a history of atrial fibrillation and is on anticoagulation for this. Some nausea but no vomiting. Related Data Home Medications Medication Instructions Recorded Confirmed aspirin 81 mg PO BEDTIME 03/02/20 03/02/20 cholecalciferol (vitamin D3) 50 mcg PO DAILY 03/02/20 03/02/20 [Vitamin D3] Previous Rx's Medication Instructions Recorded esomeprazole magnesium 20 mg PO DAILY #30 cap 04/07/20 hydrocodone-acetaminophen [Mccrory] 1 tab PO Q4H PRN #14 tab 04/07/20 Allergies Allergy/AdvReac Type Severity Reaction Status Date / Time atorvastatin [From Lipitor] AdvReac Mild Verified 04/07/20 10:40 amitriptyline AdvReac Verified 04/07/20 10:40 Review of Systems Constitutional Constitutional: Denies fever(s) Cardiovascular Cardiovascular: Denies chest pain and Denies dyspnea Respiratory Respiratory: Denies dyspnea Gastrointestinal Gastrointestinal: Reports abdominal pain, Denies melena, Denies change in bowel habits, Reports nausea and Denies vomiting Genitourinary Genitourinary: Denies dysuria Genitourinary: Denies dysuria Musculoskeletal Musculoskeletal: Denies arthralgias and Denies myalgias Integumentary/Breasts Skin/Breast: Denies lesions and Denies rash Neurologic Neurologic: Denies behavioral changes Psychiatric Psychiatric: Denies behavioral changes Hematologic/Lymphatic On Anticoagulants: Yes Allergic/Immunologic Allergic/Immunologic: Denies urticaria Patient History Medical History Adenomatous polyp Hypertension Melanoma Obesity JOHN (obstructive sleep apnea) Surgical History History of cataract surgery Family History Mother Congestive heart failure Social History household members: spouse Smoking Status: Former smoker Smoking Status: Former smoker alcohol intake frequency: holidays/special occasions only Substance Use Type: does not use Exam Initial Vital Signs Initial Vital Signs: Vital Signs Pulse Rate 86 04/07/20 10:31 Respiratory Rate 21 04/07/20 10:31 Pulse Oximetry 98 04/07/20 10:31 Const General: cooperative and comfortable Limitations: mental status not altered HENMT Head: normal to inspection and normocephalic Resp Effort & Inspection: normal respiratory effort Auscultation: clear to auscultation bilaterally Cardio Rate: regular rate Rhythm: regular rhythm GI Inspection: non-distended Palpation: soft, No firm and tender (Epigastric and right upper quadrant) Back/Spine/Pelvis Back: No CVA tenderness Skin Lesions: no lesions Rashes: no rashes Neuro General: patient alert and patient awake Cognition: normal cognition Speech: speech normal Extrem General: normal to inspection and capillary refill normal Psych Appearance: grossly normal and well kempt Course Orders Ordered: ED Orders 04/07/20 10:37 Complete Blood Count AUTO DIFF Stat Comprehensive Metabolic Panel Stat Lipase Stat Partial Thromboplastin Time Stat Prothrombin Time INR Stat Troponin & CK Cardiac Panel Stat 04/07/20 10:39 XR chest 1V Stat EKG-12 Lead Stat 04/07/20 10:56 US abdomen limited Stat Discontinued Medications Hydrocodone Bitart/Acetaminophen (Hydrocodone/Acet 5/325 Tablet) 1 tab PO NOW ONE Stop: 04/07/20 12:26 Last Admin: 04/07/20 12:30 Dose: 1 tab Documented by: Al Hydrox/Mg Hydrox/Simethicone 20 ml/ Lidocaine HCl 15 ml 0 ml PO NOW ONE Stop: 04/07/20 10:56 Last Admin: 04/07/20 11:06 Dose: 30 ml Documented by: ADIA Pantoprazole Sodium (Pantoprazole 40 Mg Vial) 40 mg IV NOW ONE Stop: 04/07/20 10:56 Last Admin: 04/07/20 11:07 Dose: 40 mg Documented by: ADIA Vital Signs Vital signs: Vital Signs - 8 hr 04/07/20 10:31 04/07/20 10:32 04/07/20 10:33 Temperature 98.4 F Pulse Rate 86 79 83 Respiratory Rate 21 20 Blood Pressure 143/64 H 143/64 H Pulse Oximetry 98 97 98 04/07/20 11:00 04/07/20 11:30 04/07/20 11:31 Temperature Pulse Rate 70 86 71 Respiratory Rate 17 29 H 22 Blood Pressure 169/82 H 155/74 H Pulse Oximetry 96 95 96 04/07/20 12:00 04/07/20 12:30 04/07/20 12:31 Temperature Pulse Rate 74 76 69 Respiratory Rate 21 26 H 24 Blood Pressure 149/70 H 150/70 H Pulse Oximetry 99 99 98 04/07/20 13:00 Temperature Pulse Rate 72 Respiratory Rate 11 L Blood Pressure 155/70 H Pulse Oximetry 100 Medical Decision Making Lab Data Lab results reviewed: Yes I reviewed the patient's lab results. Result diagrams: 04/07/20 10:37 04/07/20 10:37 Labs: Lab Results 04/07/20 04/07/20 04/07/20 Range/Units 10:37 10:37 10:37 WBC 17.5 H (4.5-11.0) X10^3/uL RBC 4.57 (4.5-5.9) X10^6/uL Hgb 12.6 L (13.5-17.5) g/dL Hct 38.1 L (41-53) % MCV 83.4 (80-100) fL MCH 27.5 (26-34) PG MCHC 33.0 (30-36) % RDW 14.5 (11.6-14.8) % Plt Count 344 (150-400) X10^3/uL Neut % (Auto) 75.2 H (50-75) % Lymph % (Auto) 13.5 L (25-40) % Raleigh % (Auto) 8.5 (3-14) % Eos % (Auto) 1.9 L (2-4) % Baso % (Auto) 0.9 (0-2) % Neut # (Auto) 88816 H (0282-6205) /uL Lymph # (Auto) 2400 (1637-2194) /uL Raleigh # (Auto) 1500 H (0-900) /uL Eos # (Auto) 300 (0-450) /uL Baso # (Auto) 200 H (0-100) /uL PT 18.3 H (10.1-12.7) SECONDS INR 1.6 H (0.9-1.3) APTT 38 H D (26.4-36.2) SECONDS Sodium 133 L (137-145) mmol/L Potassium 4.3 (3.4-5.1) mmol/L Chloride 97 L (98-107) mmol/L Carbon Dioxide 29 (22-32) mmol/L BUN 34 H (9-20) mg/dL Creatinine 1.22 (0.66-1.25) mg/dL Estimated GFR 57.4 L (>60) mL/min BUN/Creatinine Ratio 27.9 H (6-22) Glucose 148 H (80-110) mg/dL Calcium 10.0 (8.4-10.2) mg/dL Total Bilirubin 0.5 (0.2-1.3) mg/dL AST 34 (17-59) IU/L ALT 39 (<50) IU/L Alkaline Phosphatase 94 (38-126) U/L Total Creatine Kinase 48 L (55-170) U/L CK-MB (CK-2) TNP CK-MB (CK-2) Rel Index TNP Troponin I < 0.012 (0.01-0.034) ng/mL Total Protein 7.8 (6.3-8.2) g/dL Albumin 4.4 (3.5-5.0) g/dL Globulin 3.4 (1.7-4.1) g/dL Albumin/Globulin Ratio 1.3 (1.0-2.8) Lipase 92 (23-300) U/L Imaging Data Chest x-ray: Radiologist's Impression: [address] [id number] ReportSigned Patient: Rui Fraire PMR#: [id number]: 2Acct:[id number]/Sex: 80 / MDate of Service: 04/07/20Loc: EDAccession Number: [id number] Procedure: XR chest 1V Ordering Provider: Imani Rojas D.O. PROCEDURE: XR CHEST 1V INDICATIONS: chest pain TECHNIQUE: One view of the chest was acquired. COMPARISON: [facility], , XR CHEST 1V, 03/02/2020, 10:30. FINDINGS: Overlying EKG wires. Surgical changes and devices: None. Lungs and pleura: Mildly persistent interstitial prominence decreased from prior exam. No focal consolidation.. No pleural effusions or pneumothorax. Mediastinum: Mediastinal contours appear normal. Heart size is normal. Vascular calcifications within the aorta. Bones and chest wall: No suspicious bony lesions. Age appropriate degenerative changes. Overlying soft tissues appear unremarkable. IMPRESSION: Mildly prominent interstitium, decreased from prior examination. This may represent resolving interstitial edema versus atypical infection. No focal consolidation. Dictated by: Espinoza Naik D.O. on 04/07/2020 at 9:54 Approved by: Espinoza Naik D.O. on 04/07/2020 at 9:57 US - abdomen: Radiologist's Impression: [address] [id number] ReportSigned Patient: Rui Fraire PMR#: [id number]: 2Acct:[id number]/Sex: 80 / MDate of Service: 04/07/20Loc: EDAccession Number: [id number] Procedure: US abdomen limited Ordering Provider: Brendon Oliva D.O. PROCEDURE: US ABDOMEN LIMITED INDICATIONS: EVALUATE GALLBLADDER TECHNIQUE: Real-time scanning was performed of the abdominal and retroperitoneal organs, with image documentation. COMPARISON: None. FINDINGS: Liver: Liver is normal in size and homogeneous in echotexture. Patent portal vein measuring 0.6 centimeters with hepatopetal flow. Gallbladder: There is a single stone within the gallbladder neck measuring 2.0 centimeters. There is normal gallbladder wall thickness measuring less than 1 millimeter. No pericholecystic fluid. Negative sonographic Ramirez sign reported by the technologist. Biliary ducts: Intrahepatic bile ducts are non-dilated. Extrahepatic bile duct caliber measures 4.4 mm. Normal is 6-7 mm or less in diameter, or 10 mm or less post-cholecystectomy. Pancreas: Visualized portions of the pancreas are sonographically normal. Miscellaneous: No free abdominal fluid. IMPRESSION: Cholelithiasis without current sonographic evidence of cholecystitis. Dictated by: Espinoza Naik D.O. on 04/07/2020 at 11:09 Approved by: Espinoza Naik D.O. on 04/07/2020 at 11:12 ECG Data Attestation: I personally reviewed and interpreted this ECG as follows: Prior ECG tracings: available for review Interpretation: Atrial fibrillation Ventricular rate of 65 Left axis deviation Left bundle-branch block Except for rate EKG today is unchanged from EKG 1 month ago MDM Narrative Medical decision making narrative: Patient does have a non mobile stone in his gallbladder with normal LFTs and normal lipase. He does have a leukocytosis today but this is not new for him. He has been followed by his primary doctor for the past couple years secondary to this. He states that over the past year so it has been increasing and he does have a follow-up next week this primary doctor regarding this. His EKG is unchanged. Initially patient stated that he was not getting any better with pain medicines provided here in the ER so General surgery was consulted. Just before general surgery evaluated the patient he stated the pain medicines were starting to kick in and he was feeling much better. Decision was made after evaluation General surgery to discharge patient home with symptom relief for now. He is going to contact his primary doctor and gatehouse attendant discussed clearance for surgery. He was given follow-up information with regard to general surgery. He expressed understanding and agreement. Discharge Plan Departure Patient Disposition: Home Clinical Impression: Cholelithiasis Instructions: Gallstones (Alternative Therapy), Gallstones Activity Restrictions/Additional Instructions: I recommend that on Thursday you contact your primary provider and also your gatehouse attendant to discuss your emergency department visit today and to discuss follow-up as you potentially will need surgery in the future. You can also contact the [facility] [phone]. You were evaluated by Dr. Michael in the emergency department today. Take the medications as directed. Return to the emergency department for any new or worsening symptoms Prescriptions: New esomeprazole magnesium 20 mg capsule,delayed release(DR/EC) 20 mg PO DAILY Qty: 30 RF: 0 hydrocodone-acetaminophen [Mccrory] 5-325 mg tablet 1 tab PO Q4H PRN (Reason: pain) Qty: 14 RF: 0 No Action aspirin 81 mg Capsule,Delayed Release(Dr/Ec) 81 mg PO BEDTIME RF: 0 cholecalciferol (vitamin D3) [Vitamin D3] 50 mcg (2,000 unit) Capsule 50 mcg PO DAILY RF: 0 Referrals: Ji Sauer MD [Primary Care Provider] -
[2020-04-07 10:57] LABS: Alanine Aminotransferase 39 IU/L (<50); Albumin 4.4 g/dL (3.5-5.0); Albumin Globulin Ratio 1.3 (1.0-2.8); Alkaline Phosphatase 94 U/L (38-126); Aspartate Aminotransferase 34 IU/L (17-59); BUN Creatinine Ratio 27.9 (6-22); Bilirubin Total 0.5 mg/dL (0.2-1.3); Blood Urea Nitrogen 34 mg/dL (9-20); Carbon Dioxide 29 mmol/L (22-32); Chloride 97 mmol/L (98-107); Creatine Kinase 48 U/L (55-170); Estimated Glomerular Filt Rate 57.4 mL/min (>60); Globulin 3.4 g/dL (1.7-4.1); Glucose 148 mg/dL (80-110); HEMOLYSIS < 15 (0-50); Lipase 92 U/L (23-300); Potassium 4.3 mmol/L (3.4-5.1); Sodium 133 mmol/L (137-145); Total Protein 7.8 g/dL (6.3-8.2)
[2020-04-07] MEDS: MAG HYDROX/ALUMINUM/SIMETH SUS 20 ML, LIDOCAINE VISCOUS 2% 15 ML PO (11:06)
[2020-04-07] MEDS: PANTOPRAZOLE 40 MG VIAL IV (11:07)
[2020-04-07 11:08] LABS: Troponin I < 0.012 ng/mL (0.01-0.034)
[2020-04-07] MEDS: HYDROCODONE/ACET 5/325 TABLET 1 TAB PO (12:30)
--- NOTE | 2020-04-07 13:28 | P.CONS_ITS ---
History of Present Illness Consult details Date Patient Seen: 04/07/20 Time Patient Seen: 13:29 Chief complaint: BAD STOMACH PAIN Reason for consult: Gallstone Requesting provider: Brendon Oliva Narrative: Patient is a gentleman who developed severe chest pain that moved to his epigastrium and right upper quadrant. Developed at about 430 in the morning. Last p.o. intake had been a jelly sandwich late last night. Never had pain like this before. He had minimal nausea according to his but no vomiting. He has never been jaundiced. He developed a cardiac condition that was diagnosed in March and since then has been trying to eat a heart healthy diet. Meds Home Medications and Allergies Home Medications Medication Instructions Recorded Confirmed Type aspirin 81 mg PO BEDTIME 03/02/20 03/02/20 History cholecalciferol (vitamin D3) 50 mcg PO DAILY 03/02/20 03/02/20 History [Vitamin D3] esomeprazole magnesium 20 mg PO DAILY #30 cap 04/07/20 Rx esomeprazole magnesium 20 mg PO DAILY #30 cap 04/07/20 Rx hydrocodone-acetaminophen [Humble] 1 tab PO Q4H PRN #14 tab 04/07/20 Rx hydrocodone-acetaminophen [Humble] 1 tab PO Q4H PRN #14 tab 04/07/20 Rx Allergies Allergy/AdvReac Type Severity Reaction Status Date / Time atorvastatin [From Lipitor] AdvReac Mild Verified 04/07/20 10:40 amitriptyline AdvReac Verified 04/07/20 10:40 Review of Systems Review of Systems Narrative: Up until March he had been very active bicycling 5 miles a day on the stationary bike. His states that he has been the picture of health until then. He denies any double vision pain is eyes. He does were glasses. Has hearing aids bilaterally. No earaches or sore throats. No tooth aches. No cough cold or asthma. No spine pain. No broken bones in the past. No breat carmel issues. Does not think he ever had a heart attack. Was diagnosed with atrial fibrillation and congestive heart failure in March. No black or bloody bowel movements. Last colonoscopy was last year. He had polyps removed. No dysuria hematuria or history kidney stones. No seizures or blackouts. No anxiety or depression. He has not noticed that he bruises easily and has no unusual bleeding. Patient has an old tattoo in the right arm from when he was in the . No other skin lesions at this time. He apparently does have a history of melanoma. Exam Vital Signs (past 8 hours): - 04/07/20 10:32 Temperature 98.4 F Pulse Rate 79 Respiratory Rate 20 Blood Pressure 143/64 H Pulse Oximetry 97 Oxygen Delivery Method Room Air Narrative Exam Narrative: Very pleasant gentleman in no distress at this time. He was given pain medication and it has relieved his pain. Eyes are nonicteric. Pupils equal round reactive to light. Conjunctiva are pink. His pupils are small. Ears bilateral hearing aids are noted. No external lesions. Nasal septum is midline. He has a mustache. Oral mucosa is pink moist without open lesion. Teeth are intact except for some missing molars. No splits in his lips. There are no nodes in the neck or supraclavicular areas. Thyroid is not obviously enlarged. There is no tenderness in the neck or thyroid. Lungs are clear to auscultation without rales or rhonchi. Equal percussion. Heart is for a regular. I do not hear any murmurs or gallops today. His abdomen is protuberant soft. He has a nontender easily reducible small umbilical hernia. There are no palpable masses. Liver and spleen are not palpably enlarged. There is no abdominal wall tenderness. No guarding. Patient is alert and oriented x3. Speech rate and content are appropriate. Affect is appropriate. Patient has a tattoo in his right deltoid and he is wearing a support kind of adhesive bandage.(patient states he is undergoing physical therapy for some kind of a muscle tear). Texture and turgor of his skin is 2+ and normal. No open lesions appreciated. Objective Labs Result Diagrams: 04/07/20 10:37 04/07/20 10:37 Labs: Laboratory Results - last 24 hr 04/07/20 04/07/20 04/07/20 10:37 10:37 10:37 WBC 17.5 H RBC 4.57 Hgb 12.6 L Hct 38.1 L MCV 83.4 MCH 27.5 MCHC 33.0 RDW 14.5 Plt Count 344 Neut % (Auto) 75.2 H Lymph % (Auto) 13.5 L Martin % (Auto) 8.5 Eos % (Auto) 1.9 L Baso % (Auto) 0.9 Neut # (Auto) 10421 H Lymph # (Auto) 2400 Martin # (Auto) 1500 H Eos # (Auto) 300 Baso # (Auto) 200 H PT 18.3 H INR 1.6 H APTT 38 H D Sodium 133 L Potassium 4.3 Chloride 97 L Carbon Dioxide 29 BUN 34 H Creatinine 1.22 Estimated GFR 57.4 L BUN/Creatinine Ratio 27.9 H Glucose 148 H Calcium 10.0 Total Bilirubin 0.5 AST 34 ALT 39 Alkaline Phosphatase 94 Total Creatine Kinase 48 L CK-MB (CK-2) TNP CK-MB (CK-2) Rel Index TNP Troponin I < 0.012 Total Protein 7.8 Albumin 4.4 Globulin 3.4 Albumin/Globulin Ratio 1.3 Lipase 92 Assessment & Plan Assessment & Plan narrative: Patient with a recent admission for congestive heart failure, paroxysmal atrial fibrillation, and pneumonia who had new onset of chest epigastric and right upper quadrant pain probably related to gallbladder disease. He does not have any signs of toxicity. While his white count is elevated that appears to be chronic and is followed by his swing driver. Recent echocardiogram showed an ejection fraction from his left ventricular chamber of 20-25% which is significantly low. He had a stress test performed in 2018 which showed evidence of a fixed defect consistent with a prior NC. There was no evidence of ischemia at the time of that study. Patient is scheduled to have a visit with his clinical program coordinator in the next few weeks. His pain from his gallbladder disease that has subsided. I spent some time talking to him about the function of the gallbladder and the potential source of his pain and adjusting his diet. He is trying to eat a heart healthy diet and I reiterated the limitations that he should have and restrictions on certain kinds of food. According to his discharge summary he should be taking a beta-duncan, Lasix, Xarelto. I am sure his cardiac medications will be adjusted when he sees his clinical program coordinator. He believes he plans a stress test which would certainly be informative in this patient. I talked to him about removal of his gallbladder. Talked to him about our how it is done but did not go into the details of risks. I will have my office staff contact him for follow-up. He will contact his clinical program coordinator and see if his appointment can be moved up. In the meantime of will observe. From the information I have at present I suspect he is at an increased risk of cardiac complications. Will await further evaluation. (using the ACS risk calculator his risk of complication is about 8% and his risk of readmission about the same.) Time Spent With Patient Time with patient: Greater than 35 minutes (History, Exam time, discussion with the patient, review of data including his recent admission data, required 40 minutes and another 15 minutes to document and make recommendations.)
== END 2020-04-07 13:51 | disposition home or self-care (01) ==
PROVIDERS: Emergency Medicine; Emergency Provider Emergency Medicine; PCP Internal Medicine
DX: K80.20 Calculus of gallbladder without cholecystitis without obstruction (principal); R07.9 Chest pain, unspecified; R11.0 Nausea; I48.91 Unspecified atrial fibrillation; Z79.01 Long term (current) use of anticoagulants; I10 Essential (primary) hypertension; E66.09 Other obesity due to excess calories; Z68.39 Body mass index [BMI] 39.0-39.9, adult
CPT/HCPCS: 36415; 71045; 76705; 80053; 82550; 83690; 84484; 85025; 85610; 85730; 93005; 96374; 99284; C9113

== ENCOUNTER → 2020-04-09 10:59 | Outpatient (CLI) | payer MEDICARE, SELFPAY ==
[2020-03-02 13:52] VITALS: BMI 42.1
[2020-04-09 12:50] LABS: Add Manual Diff / Slide Review NO; Basophils Absolute Auto 100 /uL (0-100); Basophils Percent Auto 1.1 % (0-2); Eosinophils Absolute Auto 500 /uL (0-450); Hematocrit 36.4 % (41-53); Hemoglobin 12.2 g/dL (13.5-17.5); Lymphocytes Absolute Auto 2500 /uL (1100-4500); Lymphocytes Percent Auto 18.3 % (25-40); Mean Corpuscular HGB Conc 33.4 % (30-36); Mean Corpuscular Hemoglobin 27.9 PG (26-34); Mean Corpuscular Volume 83.5 fL (80-100); Monocytes Absolute Auto 1500 /uL (0-900); Monocytes Percent Auto 11.1 % (3-14); Neutrophils Absolute Auto 8800 /uL (1500-7000); Neutrophils Percent Auto 65.5 % (50-75); Platelet Count 309 X10^3/uL (150-400); Red Blood Cell Count 4.35 X10^6/uL (4.5-5.9); Red Cell Distribution Width 14.7 % (11.6-14.8); White Blood Cell Count 13.4 X10^3/uL (4.5-11.0)
[2020-04-09 13:04] LABS: Alanine Aminotransferase 38 IU/L (<50); Albumin 4.2 g/dL (3.5-5.0); Albumin Globulin Ratio 1.2 (1.0-2.8); Alkaline Phosphatase 75 U/L (38-126); Aspartate Aminotransferase 40 IU/L (17-59); Bilirubin Total 0.4 mg/dL (0.2-1.3); Blood Urea Nitrogen 29 mg/dL (9-20); Calcium 9.1 mg/dL (8.4-10.2); Carbon Dioxide 33 mmol/L (22-32); Chloride 97 mmol/L (98-107); Cholesterol 150 mg/dL (140-199); Estimated Glomerular Filt Rate 49.8 mL/min (>60); Globulin 3.4 g/dL (1.7-4.1); Glucose 113 mg/dL (80-110); HDL Cholesterol 25 mg/dL (40-60); HEMOLYSIS < 15 (0-50); LDL Cholesterol Calculated 75 mg/dL (<100); Potassium 4.3 mmol/L (3.4-5.1); Sodium 135 mmol/L (137-145); Total Protein 7.6 g/dL (6.3-8.2); Triglycerides 248 mg/dL (35-150)
== END ==
PROVIDERS: PCP Internal Medicine; Referring Provider Internal Medicine; Visit Provider Internal Medicine
DX: I48.91 Unspecified atrial fibrillation (principal); I50.21 Acute systolic (congestive) heart failure; D72.829 Elevated white blood cell count, unspecified
CPT/HCPCS: 80053; 80061; 85025

== ENCOUNTER → 2020-04-24 11:43 | Outpatient (CLI) | payer MEDICARE, SELFPAY ==
[2020-03-02 13:52] VITALS: BMI 42.1
[2020-04-24 12:16] LABS: Add Manual Diff / Slide Review NO; Basophils Absolute Auto 100 /uL (0-100); Basophils Percent Auto 0.9 % (0-2); Eosinophils Absolute Auto 500 /uL (0-450); Eosinophils Percent Auto 3.7 % (2-4); Hematocrit 36.4 % (41-53); Hemoglobin 11.8 g/dL (13.5-17.5); Lymphocytes Absolute Auto 2800 /uL (1100-4500); Lymphocytes Percent Auto 19.7 % (25-40); Mean Corpuscular HGB Conc 32.5 % (30-36); Mean Corpuscular Hemoglobin 27.4 PG (26-34); Mean Corpuscular Volume 84.4 fL (80-100); Monocytes Absolute Auto 1600 /uL (0-900); Monocytes Percent Auto 11.4 % (3-14); Neutrophils Absolute Auto 9100 /uL (1500-7000); Neutrophils Percent Auto 64.3 % (50-75); Platelet Count 449 X10^3/uL (150-400); Red Blood Cell Count 4.31 X10^6/uL (4.5-5.9); Red Cell Distribution Width 15.1 % (11.6-14.8); White Blood Cell Count 14.1 X10^3/uL (4.5-11.0)
[2020-04-24 12:31] LABS: Calcium 9.6 mg/dL (8.4-10.2); Carbon Dioxide 31 mmol/L (22-32); Chloride 99 mmol/L (98-107); Glucose 117 mg/dL (80-110); HEMOLYSIS < 15 (0-50); Potassium 4.1 mmol/L (3.4-5.1); Sodium 138 mmol/L (137-145)
[2020-04-24 12:36] LABS: Estimated Glomerular Filt Rate 57.4 mL/min (>60)
[2020-04-24 12:37] LABS: BUN Creatinine Ratio 17.2 (6-22); Blood Urea Nitrogen 21 mg/dL (9-20)
== END ==
PROVIDERS: PCP Internal Medicine; Referring Provider Internal Medicine; Visit Provider Internal Medicine
DX: K80.20 Calculus of gallbladder without cholecystitis without obstruction (principal); N18.31 Chronic kidney disease, stage 3a; D72.829 Elevated white blood cell count, unspecified
CPT/HCPCS: 36415; 80048; 85025

== ENCOUNTER → 2020-05-02 09:25 | Outpatient (CLI) | payer MEDICARE, SELFPAY ==
[2020-03-02 13:52] VITALS: BMI 42.1
[2020-05-02 11:07] LABS: COVID19 -Nasal RAPID Negative (Negative)
== END ==
PROVIDERS: PCP Internal Medicine; Visit Provider Nurse Practitioner Family
DX: Z01.812 Encounter for preprocedural laboratory examination (principal); Z20.822 Contact with and (suspected) exposure to COVID-19
CPT/HCPCS: 87635; C9803

== ENCOUNTER → 2020-05-03 10:32 | Outpatient (CLI) | payer MEDICARE, SELFPAY ==
[2020-03-02 13:52] VITALS: BMI 42.1
--- NOTE | 2020-05-03 | DI.NM.S_ITS ---
PROCEDURE: NM ROVERTO PERF SPECT R&S PHARM Rest and pharmacological stress myocardial perfusion SPECT with gated imaging and ejection fraction RADIOPHARMACEUTICAL: 24.9 mCi Tc-99m tetrafosmin IV at rest and 26.7 mCi Tc-99m tetrafosmin IV at peak effect of pharmacological stress. [id number]-caw-yhpuptft was performed. INDICATIONS: other persistent atrial fibrillation TECHNIQUE: Radiopharmaceutical was injected at peak stress test, and also at rest. SPECT images were obtained. SPECT myocardial perfusion images were displayed in short axis, horizontal long axis, and vertical long axis views. Gated images were reviewed using eCareer software. COMPARISON: None. CARDIAC STRESS: A pharmacologic stress test was performed under the supervision of an attending staff, using an infusion of lexiscan 0.4mg IV X1. Hemodynamic data: There is normal blood pressure and heart rate response to pharmacologic stress. Symptoms: The patient denied anginal chest pain. Aminophylline: none EKG: Resting ECG shows atrial fibrillation with LBBB. ECG non-diagnostic with lexiscan. FINDINGS: Raw data: There is good myocardial uptake of radiotracer. No significant motion artifacts. Dfvo-wm-oenlc ratio is 0.79 (normal is less than 0.38 for tetrafosmin tracer). Left ventricle function: Gated images demonstrate septal bounce with LBBB and apical akinesis. No transient ischemic dilation; TID is 1.05 (normal less than 1.3). Left ventricle resting end diastolic volume is 212 mL. Left ventricle stress ejection fraction is 42%; normal range is above 45%. Myocardial perfusion: There are moderate to severely intense fixed defect in the entire apical cap extend to the distal anterior wall. With prone imaging, the perfusion defect improves significantly but remains worse at the apex suggesting prior apical infarct with no ischemia. 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 No ischemia. 1) There are moderate to severely intense fixed defect in the entire apical cap extend to the distal anterior wall. With prone imaging, the perfusion defect improves significantly but remains worse at the apex suggesting prior apical infarct with no ischemia. 2) Enlarged left ventricle (EDV 212cc) with mildly reduced systolic function (EF post stress 42%). 3) Non-diagnostic ECG due to the baseline LBBB. 4) No angina during the study. 5) Compared to the nuclear stress test 01/06/2018, the apical infarct and apical akinesis are new on this study. Dictated by: Camelia Saravia MD on 05/04/2020 at 17:34 Approved by: Camelia Saravia MD on 05/04/2020 at 17:40
--- NOTE | 2020-05-03 11:36 | PM.TREADMILL ---
Cardiac Stress Test Report Referral & Results Date Patient Seen: 05/03/20 Time Patient Seen: 11:36 Requesting provider: Lauri Evans Indication: atrial fibrillation Rest ECG: atrial fibrillation with LBBB Procedure Note: After Lexiscan injection, had minimal dyspnea, no chest discomfort No significant ST changes on ECG after Lexiscan injection No ectopy Impression: Normal Lexiscan stress test MIBI images pending Please note: Actual ECG tracings can be found in the PACS system.
== END ==
PROVIDERS: PCP Internal Medicine; Referring Provider Physician Assistant Medical; Visit Provider Specialist
DX: I48.19 Other persistent atrial fibrillation (principal); I42.9 Cardiomyopathy, unspecified
CPT/HCPCS: 78452; 93017; A9502; J2785

== ENCOUNTER → 2020-05-22 09:05 | Outpatient (CLI) | payer MEDICARE, SELFPAY ==
[2020-03-02 13:52] VITALS: BMI 42.1
[2020-05-22 09:55] LABS: COVID19 -Nasal RAPID Negative (Negative)
== END ==
PROVIDERS: PCP Internal Medicine; Visit Provider Specialist
DX: Z20.822 Contact with and (suspected) exposure to COVID-19 (principal)
CPT/HCPCS: 87635; C9803

== ENCOUNTER → 2020-07-04 16:30 | Outpatient (CLI) | payer MEDICARE, SELFPAY ==
[2020-03-02 13:52] VITALS: BMI 42.1
[2020-07-04 18:13] LABS: Hemoglobin A1C% w Est Avg Glu 6.1 % (4.0-6.0)
== END ==
PROVIDERS: PCP Internal Medicine; Referring Provider Internal Medicine; Visit Provider Internal Medicine
DX: E74.39 Other disorders of intestinal carbohydrate absorption (principal); R73.01 Impaired fasting glucose
CPT/HCPCS: 36415; 83036

== ENCOUNTER → 2020-09-04 09:02 | Outpatient (CLI) | payer MEDICARE, SELFPAY ==
[2020-03-02 13:52] VITALS: BMI 42.1
[2020-09-04 11:18] LABS: COVID19 -Nasal RAPID Negative (Negative)
== END ==
PROVIDERS: PCP Internal Medicine; Visit Provider Specialist
DX: Z20.822 Contact with and (suspected) exposure to COVID-19 (principal)
CPT/HCPCS: 87635; C9803

== ENCOUNTER → 2020-10-16 09:38 | Outpatient (CLI) | payer MEDICARE, SELFPAY ==
[2020-03-02 13:52] VITALS: BMI 42.1
[2020-10-16 11:05] LABS: COVID19 -Nasal RAPID Negative (Negative)
== END ==
PROVIDERS: PCP Internal Medicine; Visit Provider Surgery
DX: Z20.822 Contact with and (suspected) exposure to COVID-19 (principal)
CPT/HCPCS: 87635; C9803

== ENCOUNTER 2020-10-17 09:56 | Day surgery (SDC) | payer MEDICARE, SELFPAY ==
[2020-03-02 13:52] VITALS: BMI 42.1
[2020-08-27 14:39] VITALS: BMI 39.6
[2020-10-17] VITALS (24 sets, daily range): BP systolic 119–204; BP diastolic 43–88; PULSE 53–80; RESP 10–21; TEMP 36.1–36.7; O2SAT 92–99; BMI 38.4
--- NOTE | 2020-10-17 | PATH_ITS ---
[facility] Accession Number: [id number] . 01 Material submitted: . gallbladder - GALLBLADDER AND CONTENTS . 02 Diagnosis: Gallbladder and Contents, Cholecystectomy: Cholelithiasis with mild chronic cholecystitis. One benign cystic duct lymph node. No evidence of neoplasm. V 10/19/2020 1050 Local . 02 Electronically signed: . Luis Ellis MD, PhD, Pathologist NPI- [id number] . 01 Gross description: . The specimen is received in formalin, labeled gallbladder and contents and consists of a 6.2 x 2.5 x 2.2 cm intact gallbladder with a 0.2 cm in diameter cystic duct. The serosa is pink-purple and wrinkled. Opening reveals green viscous bile with a 2.0 x 1.5 x 1.0 cm pereira-green bosselated cholelith. The mucosa is pereira-green and velvety, and the wall thickness measures 0.1 cm. A 0.5 x 0.4 x 0.3 cm pereira-pink pericystic lymph node is identified. Continuing Education Director sections are submitted, to include the en face margin (blue), pericystic lymph node, and guest experience representative gallbladder, in cassette A1. ([id number]) /[facility] 10/18/2020 1047 Local . 02 Pathologist provided ICD-10: K80.20, K81.9 . 02 CPT . 978231 Performed at: 01 [facility] [address] [facility] [place], [place], [place] [id number] MD Lisandro Pereyra MD Phone: [phone] Performed at: 02 [facility] [address] [place], [place] [id number] Keating MD Phone: [phone]
[2020-10-17] MEDS: LACTATED RINGERS 1,000 ML 42 ML IV (10:40)
--- NOTE | 2020-10-17 10:55 | P.HP_ITS ---
History of Present Illness History of Present Illness Date Patient Seen: 10/17/20 Time Patient Seen: 10:55 Chief complaint: LAP YINKA Narrative: The patient is a gentleman with gallstones and right upper quadrant pain. The pain has been mitigated by low-fat diet. He had some cardiac issues which have been addressed as much as possible. He was in AFib and had cardioversion which was successful. He has had a slow regular heart rate since. He had a recent echocardiogram that does show some abnormalities with a 40% ejection fraction. These are not new in the ejection fraction is actually improved over his prior study. Swelling in his legs has decreased but not gone completely away. He is active and rides a bicycle. He stopped his Xarelto on Thursday night so he is 2 and half days from his last dose. He does take metoprolol which could explain is slower heart rate. Patient History Medical History Adenomatous polyp Apical myocardial infarction CHF (congestive heart failure) CKD (chronic kidney disease) Diverticulosis First degree AV block Glucose intolerance Hearing loss History of cardioversion (06/08/20) Hx of skilled nursing use of blood thinners Hyperglycemia Hypertension Hypoxia (03/02/20) LBBB (left bundle branch block) Left atrial enlargement Melanoma (2017) New onset a-fib Obesity JOHN (obstructive sleep apnea) PAF (paroxysmal atrial fibrillation) Pedal edema Pulmonary HTN Sinus bradycardia Sinus infection (2014) Thrombophilia Surgical History History of cataract surgery (2013) History of vasectomy (1971) Hx of eye surgery (2012) Hx of tonsillectomy Family & Social History Family History Mother Congestive heart failure Social History: household members spouse Tobacco & Substance use: Tobacco type cigarettes Smoking Status Former smoker alcohol intake current alcohol intake frequency holiday/special occasion Substance Use Type does not use Meds Home Medications and Allergies Home Medications Medication Instructions Recorded Confirmed Type cholecalciferol (vitamin D3) 50 50 mcg PO DAILY 03/02/20 10/17/20 History mcg (2,000 unit) capsule (Vitamin D3) multivitamin 1 tab PO DAILY 05/17/20 10/17/20 History rivaroxaban 15 mg tablet (Xarelto) 15 mg PO DAILY 05/17/20 10/16/20 History furosemide 20 mg tablet 20 mg PO DAILY 08/03/20 10/17/20 History losartan 25 mg tablet 50 mg PO DAILY 08/03/20 10/17/20 History metoprolol succinate 25 mg 25 mg PO BID 08/03/20 10/17/20 History tablet,extended release 24 hr spironolactone 25 mg tablet 12.5 mg PO DAILY 08/03/20 10/17/20 History rosuvastatin 10 mg tablet 10 mg PO DAILY 10/17/20 10/17/20 History Allergies Allergy/AdvReac Type Severity Reaction Status Date / Time atorvastatin [From Lipitor] AdvReac Mild Leg muscle Verified 10/17/20 10:20 cramps amitriptyline AdvReac Verified 10/17/20 10:20 Review of Systems Review of Systems Narrative: Patient denies any cough or cold at this time. No chest pain. No unusual shortness of breath. No abdominal complaints. He has a known umbilical hernia that is asymptomatic. No black or bloody bowel movements. No seizures or blackouts. Exam Vital Signs (past 8 hours): - 10/17/20 10:27 Temperature 98.0 F Pulse Rate 53 L Respiratory Rate 16 Blood Pressure 167/64 H Pulse Oximetry 99 Oxygen Delivery Method Room Air Narrative Exam Narrative: Cooperative no apparent distress. Nonicteric sclera. Lungs are clear to auscultation no rales or rhonchi. Heart distant tones regular rate and rhythm. I do not appreciate a murmur gallop. His abdomen is protuberant soft. It is an easily reducible umbilical hernia. However however his upper midline is fairly long. He is alert and oriented. Assessment & Plan Assessment and plan (1) Cholelithiasis with chronic cholecystitis: Qualifiers: Cholelithiasis location: gallbladder Biliary obstruction: without biliary obstruction Qualified Code(s): K80.10 - Calculus of gallbladder with chronic cholecystitis without obstruction Status: Acute Assessment & Plan narrative: Patient with some cardiac disease and a history of failure who appears to be clinically improved after cardioversion. I have discussed removal of his gallbladder due to the presence of stones and prior symptoms. Risks of bleeding, infection, injury to internal organs or ducts which would necessitate a major operation, bile leakage and hernia were discussed with him. Cardiac issues also discussed. The hernia is umbilicus may be repaired at the same time if I feel that making an incision if that area will give me adequate access to his organs in his right upper quadrant. If so I would repair the hernia at the same time. All questions were answered.
--- NOTE | 2020-10-17 11:00 | PM.PREOP ---
Pre-operative Note COVID-19 COVID-19 status: Negative Result date/Date tested (Pos, Neg/Pending): 10/16/20 Interval Note History & Physical reviewed/Exam performed by Physician: Yes Changes to H&P: No
[2020-10-17] MEDS: CEFAZOLIN 1 GM VIAL 2 GM IV (11:30)
--- NOTE | 2020-10-17 11:52 | SUR.OPER ---
Supine on padded OR bed, head on pillow, safety belt at thigh, left arm padded and tucked at side. Right arm secured on padded arm board <90 degrees abduction. Legs uncrossed, pillow under knees. Padded footboard in place. Tape over blanket to secure lower legs.
[2020-10-17] MEDS: BUPIVACAINE 0.5% (PF) VIAL 30 ML INJ (11:58)
[2020-10-17] MEDS: fentaNYL 100 MCG/2 ML INJ IV (12:46)
--- NOTE | 2020-10-17 12:48 | P.OP_ITS ---
Operative Date/Time/Diagnoses Date of procedure: 10/17/20 Time of procedure: 12:48 Pre-op diagnosis: Cholelithiasis with chronic cholecystitis Post-op diagnosis: same Procedure & Clinicians Procedure: Laparoscopic cholecystectomy Same procedure as scheduled: Yes Indications: Symptoms in the past due to gallbladder disease Surgeon: Aashish Michael Anesthesia Type: General Operative Notes Findings: Mild inflammation of the gallbladder. Single large stone felt. Closure Type: primary Specimen(s): other (Gallbladder) Prosthetic devices, grafts, tissues, transplants, or devices: None Estimated Blood Loss (mL): 5 Blood products transfused: none Procedure in detail: The patient was placed supine on the operating room table and underwent general endotracheal anesthesia. The patient was prepped and draped in the usual fashion. Local anesthetic was infiltrated above the umbilicus and ilinear incision made and carried down through fascia into the peritoneal cavity. Stay sutures of 0 Vicryl were placed in the fascia. A 12 mm port was placed. The abdomen was insufflated. The patient was repositioned. Local anesthetic was infiltrated in 3 areas under the right costal margin and 3 small incisions made followed by placing 3 5 mm ports under direct laparoscopic camera vision internally. The gallbladder was grasped and elevated. Dissection was begun near its end. A ductal and vascular structures singular in nature goi ng directly of the gallbladder were identified from surrounding structures. Three clips were placed across each and they were divided leaving 2 in the patient.. The gallbladder was then dissected from its bed in the liver using cautery. Bleeding was controlled as I progressed. It was detached and removed through the umbilical port in a bag. The right upper quadrant is irrigated and suctioned free of fluid. There was no ongoing bleeding. No bile leakage. The ports were all removed. the port sites were all irrigated. The stay sutures at the umbilicus were elevated. A 2 0 PDS suture was placed between them. The Vicryl and PDS sutures were then tied. The skin in all areas was closed with interrupted 4 0 Vicryl subcuticular stitches. Steri-Strips and Mastisol were applied. Band-Aids were placed and the patient was awakened, extubated and taken to the recovery area in good condition. Complications: none Post-operative Condition: stable Disposition: PACU
--- NOTE | 2020-10-17 12:50 | SUR.PHASEI ---
Patient to PACU after general anesthesia with Anesth and RN. SBAR report at bedside. Pt breathing unassisted. Oxygen placed at 2L NC.
[2020-10-17] MEDS: HYDRALAZINE 20 MG/ML VIAL IV ×4 (13:02→13:26)
[2020-10-17] MEDS: HYDROMORPHONE 2 MG INJ IV (13:22)
--- NOTE | 2020-10-17 13:42 | SUR.PHASEI ---
Tracie called. Updated on patient care.
--- NOTE | 2020-10-17 14:01 | SUR.PHASEI ---
Patient transferred to [facility] bay 4 via stretcher. Alert, oriented, tolerating juice. SBAR report at bedside given to Nikia ARMSTRONG.
[2020-10-17] MEDS: OXYCODONE/ACETAMINOPHEN 5/325 TABLET 1 TAB PO (14:15)
== END 2020-10-17 14:33 | disposition home or self-care (01) ==
PROVIDERS: PCP Internal Medicine; Referring Provider Specialist; Visit Provider Specialist
PROC: 0FT44ZZ Resection of Gallbladder, Percutaneous Endoscopic Approach (ICD-10-PCS; CPT 47562; principal; 2020-10-17 11:15)
DX: K80.10 Calculus of gallbladder with chronic cholecystitis without obstruction (principal); I11.0 Hypertensive heart disease with heart failure; I50.9 Heart failure, unspecified; I27.20 Pulmonary hypertension, unspecified; I44.7 Left bundle-branch block, unspecified; I48.91 Unspecified atrial fibrillation; E66.9 Obesity, unspecified
CPT/HCPCS: 47562; J0330; J0360; J0690; J1100; J1170; J2405; J2704; J3010

== ENCOUNTER → 2021-04-08 09:03 | Outpatient (CLI) | payer MEDICARE, SELFPAY ==
[2020-03-02 13:52] VITALS: BMI 42.1
[2021-04-08 10:25] LABS: Alanine Aminotransferase 24 IU/L (<50); Albumin 4.1 g/dL (3.5-5.0); Albumin Globulin Ratio 1.4 (1.0-2.8); Alkaline Phosphatase 59 U/L (38-126); Aspartate Aminotransferase 29 IU/L (17-59); BUN Creatinine Ratio 14.6 (6-22); Bilirubin Total 0.5 mg/dL (0.2-1.3); Blood Urea Nitrogen 21 mg/dL (9-20); Calcium 9.3 mg/dL (8.4-10.2); Carbon Dioxide 31 mmol/L (22-32); Chloride 105 mmol/L (98-107); Estimated Glomerular Filt Rate 47.3 mL/min (>60); Glucose 125 mg/dL (80-110); HEMOLYSIS < 15 (0-50); Magnesium 2.1 mg/dL (1.6-2.3); Sodium 141 mmol/L (137-145); Total Protein 7.1 g/dL (6.3-8.2)
[2021-04-10 08:14] LABS: Cholesterol, Total 93 mg/dL (100-199); HDL-Cholesterol 35 mg/dL (>39); HDL-Particle (Total) 28.1 umol/L (>=30.5); LDL Particle 554 nmol/L (<1000); LDL Size 19.7 nm (>20.5); LDL-Cholsterol 36 mg/dL (0-99); LP-IR Score 63 (<=45); Small LDL- Particle 351 nmol/L (<=527); Triglycerides 120 mg/dL (0-149)
== END ==
PROVIDERS: PCP Internal Medicine; Visit Provider Physician Assistant Medical
DX: I48.0 Paroxysmal atrial fibrillation (principal); E78.2 Mixed hyperlipidemia
CPT/HCPCS: 36415; 80053; 80061; 83704; 83735

== ENCOUNTER 2021-10-31 12:30 | Outpatient (RCR) | payer MEDICARE, SELFPAY ==
[2020-03-02 13:52] VITALS: BMI 42.1
== END 2021-10-31 14:30 ==
LOC: CAR 12:30
PROVIDERS: PCP Internal Medicine; Referring Provider Specialist; Visit Provider Specialist
DX: I25.2 Old myocardial infarction (principal)
CPT/HCPCS: 93798

== ENCOUNTER → 2021-11-11 10:14 | Outpatient (CLI) | payer MEDICARE, SELFPAY ==
[2020-03-02 13:52] VITALS: BMI 42.1
--- NOTE | 2021-11-11 | DI.ECHO.S_ITS ---
[place] +---------+ [facility] +---------+ : : [address] : [place] : : : : [id number] : : : : Phone: [phone]+ Echocardiogram Report + + :Name: ALLEY MAC Darren Study Date: 11/11/2021 Height: 65 in : :[facility] ReadingLocation: Weight: 235 lb : : Gender: Male BSA: 2.1 m2 : :: 1940 Age: 81 yrs BP: 129/61 mmHg: :Reason For Study: Cardiomyopathy, Dilated : :Ordering Physician: MO, : :MATHEUS Performed By: Roshan Weiss : :Referring: MATHEUS HASSAN : + + Interpretation Summary Left ventricular systolic function remains moderately depressed with an ejection fraction grossly estimated around 35 to 40% with moderate global hypokinesis and a significant dyssynchronous contraction pattern, consistent with a conduction abnormality, more prominent at the apex, but this appears unchanged from the previous exam. The left ventricle is moderately enlarged and has moderately increased in size. Wall thickness remains normal and unchanged. Diastolic function is somewhat challenging to assess because of frequent PVCs but there is likely a pseudonormalized pattern of diastolic filling, suggesting elevated filling pressures, likely higher compared to the previous study. The right ventricle is borderline enlarged but measures smaller compared to the previous study. Systolic function remains normal and unchanged. Right ventricular systolic pressure now measures 58 mmHg with a CVP of 15 mmHg, and both are significantly higher compared to the previous study. There is severe left atrial enlargement that is slightly progressive since the previous exam. Right atrial size is normal and measures smaller. There is probable moderate mitral regurgitation that is likely unchanged from the previous study. There is mild tricuspid regurgitation that is also unchanged. The patient was in sinus rhythm at 70 to 90 bpm, faster compared to the previous study, with frequent PVCs which are new. Procedure: A two-dimensional transthoracic echocardiogram with color flow and Doppler was performed. The study quality was technically adequate. Comparison is made with the echocardiogram of 08/20/2020. A contrast injection of Definity was performed to improve assessment of LV function. The patient was in sinus rhythm with heart rates between 70-90 bpm during the exam. The patient had frequent PVCs during the exam. Left Ventricle: The left ventricle is moderately dilated. The estimated left ventricular end diastolic volume is 238 mL, up from the previous 184 ml. Left ventricular systolic function is moderately reduced. The ejection fraction is estimated to be 35-40%. There is moderate global hypokinesis of the left ventricle. There is a significant dyssynchronous contraction pattern, consistent with a conduction abnormality. This appears worse at the apex but appears unchanged from previous exam. Diastolic parameters suggest a pseudonormalization pattern, consistent with probable elevated filling pressures. This is possibly higher compared to the previous study. Right Ventricle: The right ventricle is borderline dilated. This is slightly smaller compared to the previous study. The right ventricular systolic function is normal. This is unchanged compared to the previous study. Atria: The left atrium is severely dilated. This is slightly larger compared to the previous study. Right atrial size is normal with an index of 17.7 mL/mA?, smaller compared to the previous study. The interatrial septum grossly appears intact with no obvious evidence for an atrial septal defect. Mitral Valve: There is mild mitral annular calcification. The mitral valve leaflets appear mildly thickened, but open well. There is moderate mitral regurgitation. This is likely unchanged compared to the previous study. Aortic Valve: The aortic valve is trileaflet. There is mild aortic valve sclerosis. The aortic valve opens well. No aortic regurgitation is present. Tricuspid Valve: The tricuspid valve is normal in structure and function. There is mild tricuspid regurgitation. This is unchanged compared to the previous study. The right ventricular systolic pressure is estimated to be at least 58 mmHg based on an estimated right atrial pressure of 15 mm Hg. This is higher compared to the previous study. Pulmonic Valve: The pulmonic valve is not well seen, but is grossly normal. There is no pulmonic valvular regurgitation. Great Vessels: The aortic root is normal size. The dimensions of the ascending aorta are normal. The IVC is dilated (diameter is greater than 2.1 cm) and it collapses less than 50% with a sniff. This suggests a high right atrial pressure of 15 mm Hg. Pericardium/ Pleura There is no pericardial effusion. There is no pleural effusion. MMode/2D Measurements & Calculations LVIDd: 5.9 cm LVOT diam: 2.0 cm LVIDs: 4.8 cm Ao root diam: 2.9 cm FS: 18.9 % asc Aorta Diam: 3.4 cm IVSd: 1.1 cm LVPWd: 0.98 cm LV dick. diameter/BSA (cm/m^2): 2.8 LV sys. diameter/BSA (cm/m^2): 2.3 LA dimension: 4.2 cm RA long axis: 5.4 cm LA A2 area: 29.3 cm2 LA A4 area: 30.0 cm2 LA length (vol): 6.2 cm LA vol: 120.0 ml LA vol index: 56.6 ml/m2 LVLs ap4: 9.2 cm LVLd ap2: 9.4 cm LVLs ap2: 8.3 cm TAPSE_phl: 2.6 cm Doppler Measurements & Calculations Ao V2 max: 144.0 cm/sec LVOT Max Antonino: 105.0 cm/sec Ao V2 mean: 110.0 cm/sec LV V1 max P.4 mmHg Ao max P.0 mmHg LV V1 VTI: 23.3 cm Ao mean P.0 mmHg JODIE(I,D): 2.3 cm2 Ao V2 VTI: 31.7 cm JODIE(V,D): 2.3 cm2 sev ratio: 0.74 JODIE indexed to BSA (cm^2/m^2): 1.1 MV E max antonino: 128.0 cm/sec TR max antonino: 327.0 cm/sec MV A max antonino: 65.6 cm/sec TR max P.8 mmHg MV E/A: 2.0 Med Peak E' Antonino: 4.8 cm/sec E/E' med: 26.4 Lat Peak E' Antonino: 12.6 cm/sec E/E' lat: 10.2 E/e' average: 18.3 MV dec time: 0.21 sec MR VTI: 147.0 cm SV(LVOT): 73.2 ml AV VR_phl: 0.73 MV P1/2t-pr_phl: 60.0 msec JODIE(VTI)/BSA_phl: 1.1 Reading Physician:12:44 PM
== END ==
PROVIDERS: PCP Internal Medicine; Referring Provider Specialist; Visit Provider Specialist
DX: I27.20 Pulmonary hypertension, unspecified (principal); I42.0 Dilated cardiomyopathy; I51.7 Cardiomegaly; I49.3 Ventricular premature depolarization; I07.1 Rheumatic tricuspid insufficiency
CPT/HCPCS: C8929; Q9957

== ENCOUNTER 2021-11-13 10:43 | Emergency (ER) | payer MEDICARE, SELFPAY ==
[2020-03-02 13:52] VITALS: BMI 42.1
[2021-11-13] VITALS (27 sets, daily range): BP systolic 121–152; BP diastolic 57–92; PULSE 68–102; RESP 12–24; TEMP 36.6–36.7; O2SAT 95–100; BMI 38.2
[2021-11-13 12:37] LABS: Add Manual Diff / Slide Review NO; Basophils Absolute Auto 100 /uL (0-100); Basophils Percent Auto 1.1 % (0-2); Eosinophils Absolute Auto 500 /uL (0-450); Eosinophils Percent Auto 4.2 % (2-4); Hematocrit 21.8 % (41-53); Lymphocytes Absolute Auto 1400 /uL (1100-4500); Lymphocytes Percent Auto 10.7 % (25-40); Mean Corpuscular HGB Conc 31.8 % (30-36); Mean Corpuscular Volume 72.3 fL (80-100); Monocytes Absolute Auto 1600 /uL (0-900); Monocytes Percent Auto 12.6 % (3-14); Neutrophils Absolute Auto 9300 /uL (1500-7000); Neutrophils Percent Auto 71.4 % (50-75); Platelet Count 391 X10^3/uL (150-400); Red Blood Cell Count 3.02 X10^6/uL (4.5-5.9); Red Cell Distribution Width 17.4 % (11.6-14.8)
[2021-11-13 12:40] LABS: INR 1.3 (0.9-1.3); Prothrombin Time 14.9 SECONDS (10.1-12.7)
[2021-11-13 12:43] LABS: PTT Partial Thromboplastin Tim 33 SECONDS (26-36)
[2021-11-13 12:44] LABS: COVID19 -Nasal RAPID Negative (Negative)
[2021-11-13 12:47] LABS: Hemoglobin 6.9 g/dL (13.5-17.5)
[2021-11-13 12:48] LABS: Alanine Aminotransferase 21 IU/L (<50); Albumin 4.2 g/dL (3.5-5.0); Albumin Globulin Ratio 1.3 (1.0-2.8); Alkaline Phosphatase 78 U/L (38-126); Aspartate Aminotransferase 28 IU/L (17-59); BUN Creatinine Ratio 23.4 (6-22); Bilirubin Total 0.7 mg/dL (0.2-1.3); Blood Urea Nitrogen 36 mg/dL (9-20); Calcium 8.7 mg/dL (8.4-10.2); Carbon Dioxide 23 mmol/L (22-32); Chloride 101 mmol/L (98-107); Creatine Kinase 216 U/L (55-170); Estimated Glomerular Filt Rate 46 mL/min (>60); Globulin 3.2 g/dL (1.7-4.1); Glucose 113 mg/dL (80-110); HEMOLYSIS < 15 (0-50); Lipase 86 U/L (23-300); Magnesium 2.2 mg/dL (1.6-2.3); Potassium 4.2 mmol/L (3.4-5.1); Sodium 138 mmol/L (137-145); Total Protein 7.4 g/dL (6.3-8.2)
[2021-11-13 12:57] LABS: Troponin I 0.027 ng/mL (0.01-0.034)
[2021-11-13 13:03] LABS: CKMB % Relative Index 0.5 % (1.5-5.0); Creatine Kinase MB 1.09 ng/mL (<2.37)
--- NOTE | 2021-11-13 14:55 | ED.RECABL ---
HPI - Recheck/Abnormal Lab/Rx General Chief Complaint: Recheck/Abnormal Lab/Rx Stated Complaint: Anemic- sent by [facility] for transfusion Time Seen by Provider: 11/13/21 12:08 Source: patient Mode of arrival: Family Vehicle History of Present Illness HPI narrative: Patient is a 81-year-old male with history of cardiomyopathy, left bundle-branch block, on Xarelto, hyperlipidemia, hypertension presenting today with anemia. He has had ongoing shortness of breath for about 2 years however probably worse over last 1 week. He says he is more short of breath with any sort of exertion. He denies dizziness or lightheadedness. PCP nose report high suspicion for slow GI bleed for many months. He was mildly anemic earlier this year. He was also told that he has a hiatal hernia concerned that this may be the source. 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 Related Data Home Medications Medication Instructions Recorded Confirmed cholecalciferol (vitamin D3) 50 50 mcg PO DAILY 03/02/20 11/01/20 mcg (2,000 unit) capsule (Vitamin D3) multivitamin 1 tab PO DAILY 05/17/20 11/01/20 furosemide 20 mg tablet 20 mg PO DAILY 08/03/20 11/01/20 losartan 25 mg tablet 50 mg PO DAILY 08/03/20 11/01/20 metoprolol succinate 25 mg 25 mg PO BID 08/03/20 11/01/20 tablet,extended release 24 hr spironolactone 25 mg tablet 12.5 mg PO DAILY 08/03/20 11/01/20 rosuvastatin 10 mg tablet 10 mg PO DAILY 10/17/20 11/01/20 Allergies Allergy/AdvReac Type Severity Reaction Status Date / Time atorvastatin [From Lipitor] AdvReac Mild Leg muscle Verified 11/13/21 11:11 cramps amitriptyline AdvReac Verified 11/13/21 11:11 Review of Systems Review of Systems Narrative: GENERAL: Denies chills, fatigue, malaise, fever, sweats, travel HEENT: Denies sinus pain, ear pain, sore throat, difficulty swallowing, neck pain RESPIRATORY: See HPI CARDIOVASCULAR: Denies chest pain, palpitations, orthopnea, edema GASTROINTESTINAL: See HPI : Denies dysuria, frequency, incontinence, hematuria, urinary retention, flank pain. MUSCULOSKELETAL: Denies weakness, joint pain, or bony pain SKIN: No rash, no erythema, no pruritus NEUROLOGIC: Denies weakness, dizziness, headache, numbness, change in speech, confusion PSYCHIATRIC: No concerning psychosocial issues. 12 point review of systems is negative except for those stated above and HPI Patient History Medical History Adenomatous polyp Apical myocardial infarction CHF (congestive heart failure) CKD (chronic kidney disease) Diverticulosis First degree AV block Glucose intolerance Hearing loss History of cardioversion (06/08/20) Hx of halfway use of blood thinners Hyperglycemia Hypertension Hypoxia (03/02/20) LBBB (left bundle branch block) Left atrial enlargement Melanoma (2017) New onset a-fib Obesity JOHN (obstructive sleep apnea) PAF (paroxysmal atrial fibrillation) Pedal edema Pulmonary HTN Sinus bradycardia Sinus infection (2014) Thrombophilia Surgical History History of cataract surgery (2013) History of vasectomy (1971) Hx of eye surgery (2012) Hx of tonsillectomy Family History Mother Congestive heart failure Social History marital status: household members: spouse occupational status: employed Smoking Status: Former smoker alcohol intake: current substance use type: does not use Smoking Status: Former smoker tobacco type: cigarettes alcohol intake frequency: holidays/special occasions only Substance Use Type: does not use Exam Initial Vital Signs Initial Vital Signs: Vital Signs Temperature 97.8 F 11/13/21 11:07 Pulse Rate 87 11/13/21 11:07 Respiratory Rate 20 11/13/21 11:07 Blood Pressure 132/58 L 11/13/21 11:07 Pulse Oximetry 95 11/13/21 11:07 Oxygen Delivery Method 11/13/21 11:07 GENERAL: Alert 81-year-old male mildly pale HEENT: Head atraumatic,EOMI, pupils reactive, face symmetric, moist mucous membranes CARDIOVASCULAR: Regular rate and rhythm without murmurs, rubs or gallops. RESPIRATORY: Tachypnea with minimal movement in bed, clear bilaterally no wheezing rales or ABDOMEN: Soft, nontender. Normoactive bowel sounds all 4 quadrants. No guarding or rebound. RECTAL: Guaiac-negative EXTREMITIES: Normal range of motion, no clubbing or edema. Neurovascularly intact NEUROLOGICAL: Alert and oriented x4.Normal gait and speech. Cranial nerves II through XII grossly intact. SKIN: Warm, dry, no laceration, no petechiae, no rashes or lesions. Course Orders Ordered: ED Orders 11/13/21 11:14 EKG-12 Lead Stat 11/13/21 12:15 BNP [NT-proBNP (BNP-Adult 18+)] Stat Complete Blood Count AUTO DIFF Stat Comprehensive Metabolic Panel Stat Iron Profile (w/ % Saturation) Stat Lipase Stat Magnesium Stat PRBC [Packed Cells] Stat Partial Thromboplastin Time Stat Prothrombin Time INR Stat Troponin & CK Cardiac Panel Stat Type and Screen Stat 11/13/21 12:23 COVID19 -Nasal RAPID/Pre-Proc Stat 11/13/21 15:40 Chest [XR chest 1V] Stat 11/13/21 15:56 Consult to General Surgery Stat Discontinued Medications Furosemide (Furosemide 40 Mg/4 Ml Vial) 20 mg IV NOW ONE Stop: 11/13/21 18:14 Last Admin: 11/13/21 18:30 Dose: Not Given Documented By: ARLENE Pantoprazole Sodium (Pantoprazole 40 Mg Vial) 40 mg IV NOW ONE Stop: 11/13/21 15:20 Last Admin: 11/13/21 16:15 Dose: 40 mg Documented By: ARLENE Vital Signs Vital signs: Vital Signs - 8 hr 11/13/21 12:19 11/13/21 12:20 11/13/21 12:20 Temperature Pulse Rate 68 71 Respiratory Rate 17 15 Blood Pressure 131/57 L Pulse Oximetry 99 100 11/13/21 12:30 11/13/21 12:30 11/13/21 13:00 Temperature Pulse Rate 75 Respiratory Rate 12 Blood Pressure 128/59 L 121/58 L Pulse Oximetry 100 11/13/21 13:00 11/13/21 13:35 11/13/21 13:36 Temperature Pulse Rate 74 79 79 Respiratory Rate 15 23 18 Blood Pressure Pulse Oximetry 99 100 100 11/13/21 13:36 11/13/21 14:00 11/13/21 14:01 Temperature Pulse Rate 73 74 Respiratory Rate 23 19 Blood Pressure 127/59 L Pulse Oximetry 99 99 11/13/21 14:01 11/13/21 16:44 11/13/21 17:01 Temperature 97.9 F 98.0 F Pulse Rate 79 78 Respiratory Rate 18 18 Blood Pressure 123/58 L 131/60 126/60 Pulse Oximetry 11/13/21 14:30 11/13/21 15:00 11/13/21 15:00 Temperature Pulse Rate 74 85 Respiratory Rate 24 24 Blood Pressure 133/92 H Pulse Oximetry 98 98 11/13/21 15:50 11/13/21 16:00 11/13/21 16:30 Temperature Pulse Rate 102 H 83 Respiratory Rate 24 22 Blood Pressure Pulse Oximetry 98 98 98 11/13/21 16:45 11/13/21 16:45 11/13/21 16:58 Temperature Pulse Rate 79 79 Respiratory Rate 23 15 Blood Pressure 131/60 Pulse Oximetry 98 98 11/13/21 16:58 11/13/21 17:00 11/13/21 17:00 Temperature Pulse Rate 79 Respiratory Rate 15 Blood Pressure 134/60 126/60 Pulse Oximetry 98 11/13/21 17:15 11/13/21 17:15 11/13/21 17:25 Temperature 98.1 F Pulse Rate 80 82 Respiratory Rate 19 18 Blood Pressure 126/60 Pulse Oximetry 99 98 11/13/21 17:25 11/13/21 17:30 11/13/21 17:31 Temperature Pulse Rate 81 81 Respiratory Rate 16 17 Blood Pressure 127/58 L Pulse Oximetry 98 98 11/13/21 17:31 11/13/21 17:45 11/13/21 17:45 Temperature Pulse Rate 79 Respiratory Rate 16 Blood Pressure 136/61 121/59 L Pulse Oximetry 98 11/13/21 18:00 11/13/21 18:01 11/13/21 18:01 Temperature Pulse Rate 85 81 Respiratory Rate 22 20 Blood Pressure 152/80 H Pulse Oximetry 98 98 11/13/21 18:15 11/13/21 18:15 Temperature 98.1 F Pulse Rate 84 Respiratory Rate 18 Blood Pressure 133/61 Pulse Oximetry 98 MDM - Recheck/Abnormal Lab/Rx Lab Data Result diagrams: 11/13/21 12:15 11/13/21 12:15 Labs: Lab Results 11/13/21 11/13/21 11/13/21 Range/Units 12:15 12:15 12:15 WBC 13.0 H (4.5-11.0) X10^3/uL RBC 3.02 L (4.5-5.9) X10^6/uL Hgb 6.9 L* (13.5-17.5) g/dL Hct 21.8 L (41-53) % MCV 72.3 L (80-100) fL MCH 23.0 L (26-34) PG MCHC 31.8 (30-36) % RDW 17.4 H (11.6-14.8) % Plt Count 391 (150-400) X10^3/uL Neut % (Auto) 71.4 (50-75) % Lymph % (Auto) 10.7 L (25-40) % [place]oula % (Auto) 12.6 (3-14) % Eos % (Auto) 4.2 H (2-4) % Baso % (Auto) 1.1 (0-2) % Neut # (Auto) 9300 H (7576-1091) /uL Lymph # (Auto) 1400 (2274-5679) /uL [place] # (Auto) 1600 H (0-900) /uL Eos # (Auto) 500 H (0-450) /uL Baso # (Auto) 100 (0-100) /uL PT 14.9 H (10.1-12.7) SECONDS INR 1.3 (0.9-1.3) APTT 33 (26-36) SECONDS Sodium 138 (137-145) mmol/L Potassium 4.2 (3.4-5.1) mmol/L Chloride 101 (98-107) mmol/L Carbon Dioxide 23 (22-32) mmol/L BUN 36 H (9-20) mg/dL Creatinine 1.54 H (0.66-1.25) mg/dL Estimated GFR 46 L (>60) mL/min BUN/Creatinine Ratio 23.4 H (6-22) Glucose 113 H (80-110) mg/dL Calcium 8.7 (8.4-10.2) mg/dL Magnesium 2.2 (1.6-2.3) mg/dL Iron (49-181) ug/dL TIBC (261-462) ug/dL % Saturation (20-50) % Transferrin (206-381) mg/dL Total Bilirubin 0.7 (0.2-1.3) mg/dL AST 28 (17-59) IU/L ALT 21 (<50) IU/L Alkaline Phosphatase 78 (38-126) U/L Total Creatine Kinase 216 H (55-170) U/L CK-MB (CK-2) 1.09 (<2.37) ng/mL CK-MB (CK-2) Rel Index 0.5 L (1.5-5.0) % Troponin I 0.027 (0.01-0.034) ng/mL NT-Pro-B Natriuret Pep (<450) pg/mL Total Protein 7.4 (6.3-8.2) g/dL Albumin 4.2 (3.5-5.0) g/dL Globulin 3.2 (1.7-4.1) g/dL Albumin/Globulin Ratio 1.3 (1.0-2.8) Lipase 86 (23-300) U/L SARS-CoV-2 (PCR) (Negative) Blood Type Antibody Screen Crossmatch 11/13/21 11/13/21 11/13/21 Range/Units 12:15 12:15 12:15 WBC (4.5-11.0) X10^3/uL RBC (4.5-5.9) X10^6/uL Hgb (13.5-17.5) g/dL Hct (41-53) % MCV (80-100) fL MCH (26-34) PG MCHC (30-36) % RDW (11.6-14.8) % Plt Count (150-400) X10^3/uL Neut % (Auto) (50-75) % Lymph % (Auto) (25-40) % [place]oula % (Auto) (3-14) % Eos % (Auto) (2-4) % Baso % (Auto) (0-2) % Neut # (Auto) (1084-2104) /uL Lymph # (Auto) (6334-6520) /uL [place]oula # (Auto) (0-900) /uL Eos # (Auto) (0-450) /uL Baso # (Auto) (0-100) /uL PT (10.1-12.7) SECONDS INR (0.9-1.3) APTT (26-36) SECONDS Sodium (137-145) mmol/L Potassium (3.4-5.1) mmol/L Chloride (98-107) mmol/L Carbon Dioxide (22-32) mmol/L BUN (9-20) mg/dL Creatinine (0.66-1.25) mg/dL Estimated GFR (>60) mL/min BUN/Creatinine Ratio (6-22) Glucose (80-110) mg/dL Calcium (8.4-10.2) mg/dL Magnesium (1.6-2.3) mg/dL Iron 30 L (49-181) ug/dL TIBC 447 (261-462) ug/dL % Saturation 7 L (20-50) % Transferrin 349 (206-381) mg/dL Total Bilirubin (0.2-1.3) mg/dL AST (17-59) IU/L ALT (<50) IU/L Alkaline Phosphatase (38-126) U/L Total Creatine Kinase (55-170) U/L CK-MB (CK-2) (<2.37) ng/mL CK-MB (CK-2) Rel Index (1.5-5.0) % Troponin I (0.01-0.034) ng/mL NT-Pro-B Natriuret Pep 2420 H (<450) pg/mL Total Protein (6.3-8.2) g/dL Albumin (3.5-5.0) g/dL Globulin (1.7-4.1) g/dL Albumin/Globulin Ratio (1.0-2.8) Lipase (23-300) U/L SARS-CoV-2 (PCR) (Negative) Blood Type O Negative Antibody Screen Negative Crossmatch See Detail 11/13/21 Range/Units 12:23 WBC (4.5-11.0) X10^3/uL RBC (4.5-5.9) X10^6/uL Hgb (13.5-17.5) g/dL Hct (41-53) % MCV (80-100) fL MCH (26-34) PG MCHC (30-36) % RDW (11.6-14.8) % Plt Count (150-400) X10^3/uL Neut % (Auto) (50-75) % Lymph % (Auto) (25-40) % [place]oul[place] % (Auto) (3-14) % Eos % (Auto) (2-4) % Baso % (Auto) (0-2) % Neut # (Auto) (5313-6559) /uL Lymph # (Auto) (8046-9868) /uL [place]oul[place] # (Auto) (0-900) /uL Eos # (Auto) (0-450) /uL Baso # (Auto) (0-100) /uL PT (10.1-12.7) SECONDS INR (0.9-1.3) APTT (26-36) SECONDS Sodium (137-145) mmol/L Potassium (3.4-5.1) mmol/L Chloride (98-107) mmol/L Carbon Dioxide (22-32) mmol/L BUN (9-20) mg/dL Creatinine (0.66-1.25) mg/dL Estimated GFR (>60) mL/min BUN/Creatinine Ratio (6-22) Glucose (80-110) mg/dL Calcium (8.4-10.2) mg/dL Magnesium (1.6-2.3) mg/dL Iron (49-181) ug/dL TIBC (261-462) ug/dL % Saturation (20-50) % Transferrin (206-381) mg/dL Total Bilirubin (0.2-1.3) mg/dL AST (17-59) IU/L ALT (<50) IU/L Alkaline Phosphatase (38-126) U/L Total Creatine Kinase (55-170) U/L CK-MB (CK-2) (<2.37) ng/mL CK-MB (CK-2) Rel Index (1.5-5.0) % Troponin I (0.01-0.034) ng/mL NT-Pro-B Natriuret Pep (<450) pg/mL Total Protein (6.3-8.2) g/dL Albumin (3.5-5.0) g/dL Globulin (1.7-4.1) g/dL Albumin/Globulin Ratio (1.0-2.8) Lipase (23-300) U/L SARS-CoV-2 (PCR) Negative (Negative) Blood Type Antibody Screen Crossmatch Imaging Data Chest x-ray: Radiologist's Impression: Signed Patient: Rui Fraire MR#: [id number] : 1940 Acct:[id number] Age/Sex: 81 / M Date of Service: 11/13/21 Loc: ED Accession Number: [id number] ?? Procedure: XR chest 1V Ordering Provider: Imani Rojas D.O. PROCEDURE:? XR CHEST 1V ? INDICATIONS:? Shortness of breath ? TECHNIQUE:? One view of the chest was acquired.? ? COMPARISON:? [facility], CR, XR CHEST 1V, 04/07/2020, 10:47.? [facility], CR, XR CHEST 1V, 03/02/2020, 10:30. ? FINDINGS:? ? Surgical changes and devices:? None.? ? Lungs and pleura:? Bilateral hazy and interstitial opacities.? No pleural effusions or pneumothorax.? ? Mediastinum:? Cardiac silhouette is at the upper limit of normal in size.? Mediastinal and hilar contours appear similar to before. ? Bones and chest wall:? No suspicious bony lesions.? Overlying soft tissues appear unremarkable.? ? IMPRESSION:? Bilateral pulmonary opacities suspicious for mild pulmonary edema.? Viral or atypical infection can appear similarly. ? ? Dictated by: Kalpesh Villa M.D. on 11/13/2021 at 16:10 ? ? ECG Data Interpretation: Sinus rhythm left bundle-branch block PVC noted no ST changes similar to previous EKG MDM Narrative Medical decision making narrative: Patient's Xarelto was stopped yesterday after a found to be anemic. Thought to have a slow GI bleed for a while. Possible iron deficiency as well. Patient is symptomatic with increasing shortness of breath with exertion. I initially did talk with Dr. Arpit morrison who agrees with consult and admission to hospitalist. I did speak with Dr. Lux who did accept patient. However patient does not want to stay in the hospital he would much rather go home and help take care of his ailing . He is hemodynamically stable he is not tachycardic or hypotensive although he does take metoprolol. His Xarelto was stopped yesterday he is not actively bleeding. He will need an outpatient scope it sounds as though he is follow closely with his providers. BNP is noted to be elevated. He is ordered a dose of Lasix here in the emergency department however he does not want the Lasix he would like to go home and take his home Lasix. Discharge Plan Departure Patient Disposition: Home Clinical Impression: Anemia Instructions: Anemia Activity Restrictions/Additional Instructions: *You have been diagnosed with anemia *What to do: You received 1 unit of blood in the emergency department. You may need another unit of blood. You also likely need a colonoscopy and an EGD. He will need to discuss this with her primary care provider and have a referral to surgery or GI *Continue to take medications as directed Please take a dose of your Lasix tonight *Follow up with your primary care provider in 2-3 days or call [phone] *Return to ER if you should have increasing shortness of breath chest pain, rectal bleeding or any new, worsening or concerning symptoms Prescriptions: No Action multivitamin Tablet 1 tab PO DAILY cholecalciferol (vitamin D3) [Vitamin D3] 50 mcg (2,000 unit) Capsule 50 mcg PO DAILY metoprolol succinate 25 mg Tablet Extended Release 24 Hr 25 mg PO BID spironolactone 25 mg Tablet 12.5 mg PO DAILY losartan 25 mg Tablet 50 mg PO DAILY furosemide 20 mg Tablet 20 mg PO DAILY rosuvastatin 10 mg tablet 10 mg PO DAILY Referrals: Lauri Harrington MD [Primary Care Provider] - Visit Report Forms: Patient Portal/API
--- NOTE | 2021-11-13 15:40 | DI.RAD.S_ITS ---
PROCEDURE: XR CHEST 1V INDICATIONS: Shortness of breath TECHNIQUE: One view of the chest was acquired. COMPARISON: [facility], CR, XR CHEST 1V, 04/07/2020, 10:47. [facility], CR, XR CHEST 1V, 03/02/2020, 10:30. FINDINGS: Surgical changes and devices: None. Lungs and pleura: Bilateral hazy and interstitial opacities. No pleural effusions or pneumothorax. Mediastinum: Cardiac silhouette is at the upper limit of normal in size. Mediastinal and hilar contours appear similar to before. Bones and chest wall: No suspicious bony lesions. Overlying soft tissues appear unremarkable. IMPRESSION: Bilateral pulmonary opacities suspicious for mild pulmonary edema. Viral or atypical infection can appear similarly. Dictated by: Kalpesh Villa M.D. on 11/13/2021 at 16:10 Approved by: Kalpesh Villa M.D. on 11/13/2021 at 16:17
[2021-11-13] MEDS: PANTOPRAZOLE 40 MG VIAL IV (16:15)
[2021-11-13 16:50] LABS: HEMOLYSIS < 15 (0-50); Iron 30 ug/dL (49-181)
[2021-11-13 17:01] LABS: Percent Iron Saturation 7 % (20-50); Total Iron Binding Capacity 447 ug/dL (261-462); Transferrin 349 mg/dL (206-381)
[2021-11-13 17:03] LABS: NT-proBNP (BNP-Adult 18+) 2420 pg/mL (<450)
--- NOTE | 2021-11-13 18:29 | PC.NURSE ---
blood transfusion done. pt refusing IV lasix. Dr. Rojas notified.
== END 2021-11-13 18:45 | disposition home or self-care (01) ==
PROVIDERS: Emergency Provider Emergency Medicine; PCP Internal Medicine
DX: D64.9 Anemia, unspecified (principal); R06.02 Shortness of breath; R07.9 Chest pain, unspecified; Z20.822 Contact with and (suspected) exposure to COVID-19
CPT/HCPCS: 36415; 36430; 71045; 80053; 82550; 82553; 83540; 83550; 83690; 83735; 83880; 84484; 85025; 85610; 85730; 86850; 86900; 86901; 87635; 93005; 96374; 99284; C9803; P9016; C9113

== ENCOUNTER → 2021-12-17 10:02 | Outpatient (CLI) | payer MEDICARE, SELFPAY ==
[2020-03-02 13:52] VITALS: BMI 42.1
[2021-12-17 12:05] LABS: COVID19 -Nasal RAPID Negative (Negative)
== END ==
PROVIDERS: PCP Internal Medicine; Visit Provider Surgery
DX: Z20.822 Contact with and (suspected) exposure to COVID-19 (principal); Z01.812 Encounter for preprocedural laboratory examination
CPT/HCPCS: 87635; C9803

== ENCOUNTER 2021-12-18 11:19 | Day surgery (SDC) | payer MEDICARE, SELFPAY ==
[2020-03-02 13:52] VITALS: BMI 42.1
[2021-12-18 11:44] VITALS: BP 146/50; PULSE 99; RESP 16; TEMP 36.7; O2SAT 97; BMI 38.2
[2021-12-18] MEDS: LACTATED RINGERS 1,000 ML 42 ML IV (12:02)
--- NOTE | 2021-12-18 12:02 | PM.HP.1 ---
History of Present Illness History of Present Illness Chief complaint: EGD W/POSS BX Narrative: History of iron deficiency anemia while on Plavix. Had stent placed less than 1 years ago and remains on Plavix for the procedure. Rule out underlying Oleksandr lesions esophagitis, gastroduodenal ulcer disease. Most likely no therapy to be done at this time Patient History Medical History Adenomatous polyp Apical myocardial infarction CHF (congestive heart failure) CKD (chronic kidney disease) Diverticulosis First degree AV block Glucose intolerance Hearing loss History of cardioversion (06/08/20) Hx of penitentiary use of blood thinners Hyperglycemia Hypertension Hypoxia (03/02/20) LBBB (left bundle branch block) Left atrial enlargement Melanoma (2017) New onset a-fib Obesity JOHN (obstructive sleep apnea) PAF (paroxysmal atrial fibrillation) Pedal edema Pulmonary HTN Sinus bradycardia Sinus infection (2014) Thrombophilia Surgical History History of cataract surgery (2013) History of vasectomy (1971) Hx of eye surgery (2012) Hx of tonsillectomy Stented coronary artery Family & Social History Family History Mother Congestive heart failure Social History: household members spouse Tobacco & Substance use: Tobacco type cigarettes Smoking Status Former smoker alcohol intake current alcohol intake frequency holiday/special occasion Substance Use Type does not use Meds Home Medications and Allergies Home Medications Medication Instructions Recorded Confirmed Type cholecalciferol (vitamin D3) 50 50 mcg PO DAILY 03/02/20 12/18/21 History mcg (2,000 unit) capsule (Vitamin D3) multivitamin 1 tab PO DAILY 05/17/20 12/18/21 History furosemide 20 mg tablet 20 mg PO DAILY 08/03/20 12/18/21 History losartan 25 mg tablet 50 mg PO DAILY 08/03/20 12/18/21 History rosuvastatin 10 mg tablet 10 mg PO DAILY 10/17/20 12/18/21 History Allergies Allergy/AdvReac Type Severity Reaction Status Date / Time atorvastatin [From Lipitor] AdvReac Mild Leg muscle Verified 12/18/21 11:38 cramps amitriptyline AdvReac Verified 12/18/21 11:38 Exam Vital Signs (past 8 hours): - 12/18/21 11:44 Temperature 98.1 F Pulse Rate 99 H Respiratory Rate 16 Blood Pressure 146/50 H Pulse Oximetry 97 Oxygen Delivery Method Room Air Oxygen Delivery Method Room Air Narrative Exam Narrative: Oropharynx free of lesions Chest clear to auscultation percussion Cardiac exam reveals no S3 or murmur Assessment & Plan Assessment & Plan narrative: Iron deficiency anemia while on Plavix felt best not to stop it at this time. Rule out possible bleeding lesion. Risks, benefits, alternatives have been explained Time Spent With Patient Critical Care time: I spent a total of [] minutes of critical care time on this patient's care today; this time is exclusive of procedural time.
--- NOTE | 2021-12-18 12:04 | PM.OP.EGD ---
Operative Date/Time/Diagnoses Date of procedure: 12/18/21 Pre-op diagnosis: See indication and findings Procedure & Clinicians Study performed: EGD Indications: Iron deficiency anemia remains on Plavix. Rule out bleeding lesion Surgeon: Yancy Mcmullen Procedure Notes Procedure in detail: After informed consent was obtained the patient was placed in left lateral decubitus position. Video upper scope was placed into the oropharynx and with the patient's help swallowed into the esophagus. The esophagus stomach and duodenum were carefully examined. On withdrawal retroflexed view the GE junction was performed. The scope was removed. The patient tolerated procedure well. Blood loss none Complications none Sedation propofol Findings 1. Normal esophagus with normal squamocolumnar junction 2. Normal stomach with the exception of very trivial streaky gastric erythema in the pre-pyloric region 3. Normal duodenal bulb and sweep I will leave it up to Dr. Vidal as to whether to schedule further workup such as colonoscopy.
[2021-12-18 12:42] VITALS: BP 104/48; BP 108/46; PULSE 72; PULSE 75; RESP 10; RESP 12; TEMP 37.2; TEMP 37.4; O2SAT 94; O2SAT 96
[2021-12-18 12:52] VITALS: BP 125/56; PULSE 76; RESP 16; O2SAT 96
[2021-12-18 13:35] VITALS: BP 135/65; PULSE 76; RESP 16; TEMP 36.6; O2SAT 98
== END 2021-12-18 13:45 | disposition home or self-care (01) ==
PROVIDERS: PCP Internal Medicine; Referring Provider Internal Medicine Gastroenterology; Visit Provider Internal Medicine Gastroenterology
PROC: 0DJ08ZZ Inspection of Upper Intestinal Tract, Via Natural or Artificial Opening Endoscopic (ICD-10-PCS; CPT 43235; principal; 2021-12-18 13:00)
DX: D50.9 Iron deficiency anemia, unspecified (principal); I25.10 Atherosclerotic heart disease of native coronary artery without angina pectoris; Z79.01 Long term (current) use of anticoagulants
CPT/HCPCS: 43235; J2704